=== PATIENT | female | born 2000 ===

== ENCOUNTER 2022-04-25 15:04 | Emergency (ER) | payer OTHER, SELFPAY ==
[2022-04-25 16:04] VITALS: BP 118/78; PULSE 84; RESP 16; O2SAT 99; BMI 22.6
[2022-04-25 16:31] LABS: MANUAL DIFF FLAG NO
[2022-04-25 16:44] LABS: Basophils Percent Auto 0.3 % (0-2); Hematocrit 37.7 % (37.0-47.0); Hemoglobin 12.4 g/dl (12.0-16.0); Imm Gran Abs Auto 0.01 X10*3/uL (0.00-0.03); Imm Gran Pct Auto 0.3 % (0.0-0.4); Lymphocytes Absolute Auto 1.3 X10*3/uL (1.2-4.9); Mean Corpuscular HGB Conc 32.9 g/dl (31.0-35.0); Mean Corpuscular Hemoglobin 28.8 pg (27.0-33.0); Mean Corpuscular Volume 87.5 fL (80.0-98.0); Monocytes Absolute Auto 0.5 X10*3/uL (0.1-1.2); Monocytes Percent Auto 12.3 % (2-11); Neutrophils Percent Auto 53.1 % (45-73); Platelet Count 280 X10*3/uL (160-400); Red Blood Count 4.31 X10*6/uL (4.20-5.50); Red Cell Distribution Width 12.3 % (11.0-16.0); White Blood Count 3.8 X10*3/uL (4.8-10.8)
[2022-04-25 16:49] LABS: COVID-19 Test Positive (Negative)
[2022-04-25 16:52] LABS: Anion Gap 14 (12-20); Blood Urea Nitrogen 10 mg/dL (9-16); Calcium 9.2 mg/dL (8.4-10.2); Carbon Dioxide 25 mmol/L (22-29); Chloride 104 mmol/L (96-108); Estimated Glomerular Filt Rate > 60; Glucose Random 89 mg/dL (60-115); Potassium 4.2 mmol/L (3.3-5.1); Sodium 139 mmol/L (135-145)
[2022-04-25 17:41] LABS: Appearance Urine Clear; Color Urine Dark Yellow; Glucose Urine UA Negative (Negative); Leukocyte Esterase Urine Negative (Negative); Nitrite Urine Negative (Negative); Specific Gravity - Urine >= 1.030 (1.005-1.025); Urine Blood Negative (Negative); Urine Ketones Trace mg/dL (Negative); Urine Protein 30 (1+) mg/dL (Neg-Trace)
[2022-04-25 17:43] LABS: UPreg QC Valid YES; Urine Pregnancy NEGATIVE (NEGATIVE)
[2022-04-25 17:44] LABS: Bacteria Urine None Seen (None Seen); Squamous Epithelial Cell Urine 0-2 /HPF (0-2); WBC Urine 0-5 /HPF (0-5)
== END 2022-04-25 19:03 | disposition left against medical advice (07) ==
PROVIDERS: Emergency Provider Emergency Medicine
DX: U07.1 COVID-19 (principal); R10.30 Lower abdominal pain, unspecified
CPT/HCPCS: 36415; 80048; 81001; 81025; 85025; 87635; 99282; 99283

== ENCOUNTER 2022-09-17 15:36 | Emergency (ER) | payer OTHER, SELFPAY ==
--- NOTE | ~2022-09-17 | CT_ITS ---
EXAMINATION: CT HEAD WITHOUT CONTRAST CLINICAL INFORMATION: 22-year-old with headache COMPARISON: None TECHNIQUE: Contiguous axial imaging was performed from the skull base to vertex without intravenous administration of contrast. This CT examination was performed using dose optimization techniques as appropriate, variously including the following: *Automated exposure control *Adjustment of mA and/or kV according to patient size (this includes techniques or standardized protocols for targeted exams where dose is matched to indication/reason for exam; i.e. extremities or head) *Use of iterative reconstruction technique DLP: 544 mGy-cm FINDINGS: There is no evidence of acute intracranial hemorrhage or territorial infarction. No abnormal mass effect or midline shift is seen. Ruggiero to white matter differentiation is well preserved. No extra-axial fluid collections are identified. No hydrocephalus. No significant volume loss. There is no abnormal attenuation within the brain parenchyma. The osseous structures and soft tissues are normal. The mastoid air cells and visualized portions of the paranasal sinuses are well aerated. CT/CT head/brain wo IV con IMPRESSION: No acute intracranial pathology.
[2022-09-17 15:37] VITALS: BP 120/79; PULSE 79; RESP 18; TEMP 36.7; O2SAT 100; BMI 24.5
--- NOTE | 2022-09-17 16:18 | ED_ITS ---
HPI - Headache General Chief Complaint: Headache Stated Complaint: headache,vision impairment Time Seen by Provider: 09/17/22 16:18 Source: patient and family Mode of arrival: ambulatory Limitations: no limitations History of Present Illness HPI Narrative: 22-year-old female presents for 2 weeks of right-sided headache, right-sided ear pain, right eye pain, and right eye pressure. She states that it feels like her eye is going to pop out because of the pressure. She has had headaches like this in the past however this has lasted longer than normal. She did take Tylenol with moderate effect but not today. MD elicited complaint: headache and migraine Onset (ago): week(s) (2) Onset description: gradually Location: right and occipital Severity: severe Pain scale (0-10): 9 Quality & Timing: throbbing, squeezing, constant, pressure, progressively worsening and similar to previous headaches Exacerbating factors: movement of head/neck and light Relieving factors: nothing Associated symptoms: photophobia, sensitivity to sound and eye pain Treatments prior to arrival: acetaminophen and ibuprofen Related Data Previous Rx's Medication Instructions Recorded [id number]-gnlyjprzttxld-fimexgdc 1 cap PO Q4-6H PRN migraine 09/17/22 50 mg-300 mg-40 mg capsule headache #14 caps (Fioricet) Allergies Allergy/AdvReac Type Severity Reaction Status Date / Time No Known Allergies Allergy Unverified 04/30/20 18:20 Review of Systems Review of Systems: Constitutional: No Fever, No Chills ENT/Mouth: No Ear Pain, No Hoarseness, No sore throat Eyes: Positive right Eye Pain, positive photophobia, No Swelling, No Redness, No Foreign Body Cardiovascular: No Chest Pain, No SOB Respiratory: No Cough, No Dyspnea Gastrointestinal: No Nausea, No Vomiting, No Diarrhea, No abdominal Pain Genitourinary: No Dysuria, No Hematuria Musculoskeletal: No joint pain, No Myalgias, No Joint Swelling Skin: No Skin lacerations, No rash Neuro: No Weakness, No Numbness, No Paresthesias, No Loss of Consciousness, No Dizziness, positive Headache Yes all other systems are reviewed and are negative PMFSH Past Medical History Attestation statement: The following information was validated with the patient. Source: old records reviewed Social History Social History Advance Directives: No Advance Directives Information Provided: Yes Physical Exam Vital Signs: Vital Signs: Last Vital Signs Temp 98.0 F 09/17/22 15:37 Pulse 79 09/17/22 15:37 Resp 18 09/17/22 15:37 BP 120/79 09/17/22 15:37 Pulse Ox 100 09/17/22 15:37 O2 Del Method 09/17/22 15:37 BMI result Body Mass Index 24.5 Appearance: Alert. Oriented X3. Moderate distress. Eyes: Pupils equal, round and reactive to light. EOMI. Sclerae nonicteric. No indication of entrapment. No drainage noted. ENT: Pharynx normal. No cervical lymphadenopathy. No nuchal rigidity. No vertebral tenderness. Neck: Normal inspection. Neck supple. Full range of motion. CVS: Normal heart rate and rhythm. Pulses normal. Respiratory: No respiratory distress. Breath sounds normal. Abdomen: Soft and nontender. Skin: Skin warm and dry. Normal skin color. Normal skin turgor. Extremities: No lower extremity edema. Gait well-balanced well coordinated. Neuro: No motor deficit. No sensory deficit. Cranial nerves 2-12 intact. Course Course Course Narrative: 22-year-old female presents with right-sided headache, eye pain ear pain for approximately 2 weeks. There is no indication of temporal arteritis, no pain on extraocular movements, no indication of entrapment. Patient does not report any trauma fevers or chills. Has had a history of migraines in the past. At this time will order CT scan of the head and give Fioricet. There is no indication of nuchal rigidity or mastoid tenderness. No meningeal signs. NIH stroke scale 0. Zak coma scale 15. Patient is currently menstruating. 18:[address] scans are pending. 18:20 CT scans are negative. Plan of care is to discharge home. Patient will follow-up with primary care physician for migraine follow-up. Patient verbalized understanding of and agrees to plan of care discharge home. Verbalized understanding of signs and symptoms indicating need for emergent intervention. Medications Administered Discontinued Medications Generic Name Dose Route Start Last Admin Trade Name Freq PRN Reason Stop Dose Admin Acetaminophen/Butalbital/Caffeine 1 tab 09/17/22 16:24 09/17/22 17:33 Butalb/Acetamin/Caff 50/325/40 Tablet PO 09/17/22 16:25 1 tab ONCE ONE Administration Medical Decision Making Differential Diagnosis Differential Diagnoses: The differential diagnosis associated with the presentation includes Migraine, brain abnormality, subdural Lab Data MDM Lab Attestation statement: I reviewed the patient's lab results. Labs: Lab Results 09/17/22 09/17/22 Range/Units 16:46 16:46 Urine Color [place] A Urine Appearance Cloudy Urine pH 5.5 (5.0-9.0) Ur Specific [place] >= 1.030 H (1.005-1.025) Urine Protein 30 (1+) H (Neg-Trace) mg/dL Urine Glucose (UA) Negative (Negative) mg/dL Urine Ketones Negative (Negative) mg/dL Urine Blood Large (3+) H (Negative) Urine Nitrite Negative (Negative) Ur Leukocyte Esterase Small (1+) H (Negative) Urine RBC >20 H (0-2) /HPF Urine WBC 21-50 H (0-5) /HPF Ur Squamous Epith Cells 0-2 (0-2) /HPF Urine Bacteria Trace (None Seen) Hyaline Casts 0-2 (0-2) /LPF Urine Test NEGATIVE (NEGATIVE) Independent Interpretation I performed an independent interpretation of an: CT Scan Radiology Impression Discussion of test interpretation with radiology: I have reviewed the radiologist's reading. Radiologist Impression: FINDINGS: There is no evidence of acute intracranial hemorrhage or territorial infarction. No abnormal mass effect or midline shift is seen. Ruggiero to white matter differentiation is well preserved. No extra-axial fluid collections are identified. No hydrocephalus. No significant volume loss. There is no abnormal attenuation within the brain parenchyma. The osseous structures and soft tissues are normal. The mastoid air cells and visualized portions of the paranasal sinuses are well aerated. ? CT/CT head/brain wo IV con IMPRESSION: No acute intracranial pathology. ? ? External Record Review External record reviewed: Outpatient record Prescription Management I considered prescription management with: Pain Medication Discharge Plan Discharge Clinical Impression: Tension headache, Migraine Patient Disposition: Home, Self-Care Instructions: Migraine Headache (ED), Tension Headache (ED) Additional Instructions: You were evaluated for right-sided headache. CT scan of head is negative for acute findings. Your symptoms are consistent with migraine headache. Please take Fioricet as directed. Use Tylenol 650 mg or Motrin 600 mg for onset of headache. If Tylenol and Motrin are unsuccessful at relieving her headache then use Fioricet Please follow-up with primary care physician for migraine workup. Urinalysis is negative. test is negative. Thank you for choosing this emergency department for evaluation. Please follow-up with primary care physician as needed. Return to the emergency department for any new, concerning, or worsening symptoms. Prescriptions: New iniefpqeto-kjqxvqjqwioin-pieg [Fioricet] 50-300-40 mg capsule 1 cap PO Q4-6H PRN (Reason: migraine headache) Qty: 14 0RF Referrals: Physician,None [Primary Care Provider] - 2 weeks (Primary care physician) Stand Alone Forms: Work/School Release Interventions: ED Discharge Assessment Last Done: 09/17/22 18:51 Discharge Date/Time: 09/17/22 18:51
[2022-09-17 17:08] LABS: UPreg QC Valid YES; Urine Pregnancy NEGATIVE (NEGATIVE)
[2022-09-17] MEDS: Butalb/Acetamin/Caff 50/325/40 TABLET 1 TAB PO (17:33)
[2022-09-17 17:59] LABS: Appearance Urine Cloudy; Color Urine Orange; Glucose Urine UA Negative (Negative); Leukocyte Esterase Urine Small (1+) (Negative); Nitrite Urine Negative (Negative); PH 5.5 (5.0-9.0); Specific Gravity - Urine >= 1.030 (1.005-1.025); UMIC TRIGGER UACC YES; Urine Blood Large (3+) (Negative); Urine Ketones Negative (Negative); Urine Protein 30 (1+) mg/dL (Neg-Trace)
[2022-09-17 18:00] LABS: Bacteria Urine Trace (None Seen); Hyaline Casts Urine 0-2 /LPF (0-2); RBC Urine >20 /HPF (0-2); Squamous Epithelial Cell Urine 0-2 /HPF (0-2); UACC Culture Trigger YES; WBC Urine 21-50 /HPF (0-5)
== END 2022-09-17 18:51 | disposition home or self-care (01) ==
PROVIDERS: Nurse Practitioner Family; Emergency Provider Internal Medicine
DX: G44.209 Tension-type headache, unspecified, not intractable (principal); G43.909 Migraine, unspecified, not intractable, without status migrainosus; Z79.899 Other long term (current) drug therapy
CPT/HCPCS: 70450; 81001; 81003; 81025; 87086; 99283; 99284

== ENCOUNTER 2023-01-17 11:00 | Emergency (ER) | payer MEDICAID, SELFPAY ==
[2023-01-17 11:16] VITALS: BP 118/79; PULSE 83; RESP 18; TEMP 36.7; O2SAT 99; BMI 24.6
--- NOTE | 2023-01-17 11:16 | ED_ITS ---
HPI - Dizziness General Chief Complaint: General Medical Stated Complaint: Weakness/Lightheadedness/Dizzy Time Seen by Provider: 01/17/23 17:31 Source: patient and family Mode of arrival: ambulatory Limitations: no limitations History of Present Illness HPI Narrative: This is a 22-year-old female history of tension-type migraines presenting to the emergency department for complaints of dizziness and presyncopal episodes going on for the past few days, however patient has experienced this in the past. Patient tells me she gets episodes like this at least once a month and this has been going on since she was a child. Patient reports that the reason she came in today because she felt like she was going to pass out 3 times today, she reports these episodes start with a sense of nausea, then she feels like the room is spinning, then she feels like she is going to pass out her legs are going to give out on her. She also reports that at times when she gets dizziness she gets blurred vision or tunnel vision. Does not always happen. Patient denies recent illness. Patient denies chest pain, shortness of breath, headache, vision changes, nausea, vomiting, abdominal pain, weakness, lower extremity edema or lower extremity weakness, at this time. Patient not on control, not a smoker, no long travel, no history of malignancy, no history of hypercoagulable disorders. NIH stroke scale 0. Related Data Previous Rx's Medication Instructions Recorded rqxsydctlh-jvvfcogvwwvnb-jivcxdhj 1 cap PO Q4-6H PRN migraine 09/17/22 50 mg-300 mg-40 mg capsule headache #14 caps (Fioricet) meclizine 25 mg tablet 25 mg PO DAILY PRN dizziness #14 01/17/23 tabs Allergies Allergy/AdvReac Type Severity Reaction Status Date / Time No Known Allergies Allergy Verified 01/17/23 11:20 Review of Systems Review of Systems: Constitutional : No Weight loss, No Fever, No Chills, No Fatigue, + Malaise ENT/Mouth : No sore throat, No Rhinorrhea Eyes: No Eye Pain, No Swelling, No Redness Cardiovascular : No Chest Pain, No SOB, No Dyspnea on Exertion, No Orthopnea, No Edema, No Palpitations Respiratory : No Cough, No Sputum, No Wheezing Gastrointestinal : No Nausea, No Vomiting, No Diarrhea, No Constipation, No abdominal Pain, No Hematochezia, No Melena Genitourinary : No Dysuria, No Urinary Frequency, No Hematuria, Musculoskeletal : No joint pain, No Myalgias, No Joint Swelling Skin : No Skin Lesions, No rash Neuro : No Weakness, No Numbness, + Dizziness, No Headache Psych : No Anxiety/Panic, No Depression All other systems reviewed and are negative Yes all other systems are reviewed and are negative [facility] Past Medical History Attestation statement: The following information was validated with the patient. Source: old records reviewed and nursing notes reviewed Social History Social History Advance Directives: No Advance Directives Information Provided: No Physical Exam Vital Signs: Vital Signs: Last Vital Signs Temp 98.1 F 01/17/23 11:16 Pulse 81 01/17/23 18:12 Resp 18 01/17/23 11:16 BP 108/75 01/17/23 18:12 Pulse Ox 99 01/17/23 11:16 O2 Del Method Room Air 01/17/23 11:16 BMI result Body Mass Index 24.6 vss Appearance: Alert.? Oriented X3.? No acute distress.? Patient appears anxious Head: Normocephalic, atraumatic, no step-offs or deformities Eyes: Pupils equal, round and reactive to light.? CVS: Normal heart rate and rhythm.? Pulses normal.? Respiratory: No respiratory distress.? Breath sounds normal.? Abdomen: Soft and nontender.? Skin: Skin warm and dry.? Normal skin color.? Normal skin turgor.? Extremities: No lower extremity edema.? No calf ttp. 5/5 strength to bilateral upper and lower extremities+ brisk normal 2+ reflexes to bilateral lower extremities, patellar, Achilles. Back: No midline tenderness, no C-spine tenderness, full range of motion, no CVA tenderness bilaterally Neuro: Oriented X 3.? No motor deficit.? No sensory deficit. CN 2-12 intact . Normal dcyzjx-nm-ddsa, brse-hs-sudq, steady tandem gait normal coordination. 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 Negative Romberg and pronator drift. Course Course Course Narrative: RME - 22 yo female presents to the ER for evaluation of dizziness, lightheadedness, vision changes episodes x3 today with episode of pre-syncope. She has history of similar episodes with syncope in the past. Reevaluation(s) Reevaluation #1: CBC appears to be around patient's baseline, a normocytic anemia is noted this could be secondary to menses. Chemistry without acute electrolyte abnormalities requiring intervention. Troponin negative, EKG nonischemic. TSH, urine and orthostatic vitals pending. Time: 18:08 Reevaluation #2: TSH within normal limits. Urine clean. Urine negative. Orthostatic vital signs negative. Patient feeling well, asymptomatic at this time. Neuro remains nonfocal vital signs are stable. Will be discharged home. Educated patient on diagnosis and treatment plan, answered all question, patient verbalizes understanding. At this time patient will be discharged home, advised to return with new or worsening symptoms. Educated on worrisome signs and symptoms and when to return. At this time I feel comfortable discharge home. Time: 19:06 Medical Decision Making Medical Decision Making [facility] Narrative: 1740 22-year-old female presents with presyncopal episodes, dizziness, nausea going on for the past few days however has had similar episodes like this in the past. Accompanied by father. Appears very anxious upon history taking. Physical examination benign. NIH stroke scale 0. Normal reflexes. I suspect that this is anxiety, and possible vertigo. Unlikely that this is a posterior stroke, stroke, mass, I do not suspect intracranial etiologies. Patient is PERC negative unlikely PE. Unlikely guillian barre Plan basic labs, urine, orthostatic vitals. Differential Diagnosis Differential Diagnoses: The differential diagnosis associated with the presentation includes I suspect that this is anxiety, and possible vertigo. Unlikely that this is a posterior stroke, stroke, mass, I do not suspect intracranial etiolog ies.Unlikely guillian barre Admission/Observation Consideration of admission/observation: Escalation of care including admission/observation considered Lab Data [facility] Lab Attestation statement: I reviewed the patient's lab results. 01/17/23 11:30 01/17/23 11:30 Labs: Lab Results 01/17/23 01/17/23 01/17/23 Range/Units 11:30 11:30 11:30 WBC 6.3 (4.8-10.8) X10*3/uL RBC 4.39 (4.20-5.50) X10*6/uL Hgb 10.9 L (12.0-16.0) g/dl Hct 35.3 L (37.0-47.0) % MCV 80.4 (80.0-98.0) fL MCH 24.8 L (27.0-33.0) pg MCHC 30.9 L (31.0-35.0) g/dl RDW 13.5 (11.0-16.0) % Plt Count 335 (160-400) X10*3/uL MPV 8.9 L (9.4-12.3) fL Immature Gran % (Auto) 0.2 (0.0-0.4) % Neut % (Auto) 52.6 (45-73) % Lymph % (Auto) 37.7 (20-40) % [place] % (Auto) 7.3 (2-11) % Eos % (Auto) 1.1 (0-4) % Baso % (Auto) 1.1 (0-2) % Lymph # (Auto) 2.4 (1.2-4.9) X10*3/uL [place] # (Auto) 0.5 (0.1-1.2) X10*3/uL Eos # (Auto) 0.1 (0.0-0.4) X10*3/uL Baso # (Auto) 0.1 (0.0-0.2) X10*3/uL Abs Immat Gran (auto) 0.01 (0.00-0.03) X10*3/uL Absolute Neuts (auto) 3.3 (2.0-8.3) x10*3/uL Absolute Nucleated RBC 0.000 (0.0-0.012) X10*3/uL Nucleated RBC % (auto) 0.0 (0.0-0.2) /100WBC Sodium 138 (135-145) mmol/L Potassium 4.6 (3.3-5.1) mmol/L Chloride 109 H (96-108) mmol/L Carbon Dioxide 24 (22-29) mmol/L Anion Gap 10 L (12-20) BUN 12 (9-16) mg/dL Creatinine 0.70 (0.5-1.4) mg/dL Estim Creat Clear Calc 104.9 Estimated GFR > 60 Random Glucose 89 (60-115) mg/dL Calcium 9.6 (8.4-10.2) mg/dL Magnesium 2.1 (1.6-2.6) mg/dL Total Bilirubin 0.4 (0.0-1.0) mg/dL Direct Bilirubin 0.1 (0.0-0.5) mg/dL AST 50 H (5-31) U/L ALT 79 H (0-31) U/L Alkaline Phosphatase 61 (39-117) U/L Troponin I High Sens < 2.7 (<3.5-17.0) ng/L Total Protein 7.1 (6.5-8.0) g/dL Albumin 4.2 (3.5-5.0) g/dL TSH 0.95 (0.32-4.0) uIU/mL Urine Color Urine Appearance Urine pH (5.0-9.0) Ur Specific [place] (1.005-1.025) Urine Protein (Neg-Trace) mg/dL Urine Glucose (UA) (Negative) mg/dL Urine Ketones (Negative) mg/dL Urine Blood (Negative) Urine Nitrite (Negative) Ur Leukocyte Esterase (Negative) Urine RBC (0-2) /HPF Urine WBC (0-5) /HPF Ur Squamous Epith Cells (0-2) /HPF Urine Bacteria (None Seen) Hyaline Casts (0-2) /LPF Urine Test (NEGATIVE) 01/17/23 01/17/23 Range/Units 18:35 18:35 WBC (4.8-10.8) X10*3/uL RBC (4.20-5.50) X10*6/uL Hgb (12.0-16.0) g/dl Hct (37.0-47.0) % MCV (80.0-98.0) fL MCH (27.0-33.0) pg MCHC (31.0-35.0) g/dl RDW (11.0-16.0) % Plt Count (160-400) X10*3/uL MPV (9.4-12.3) fL Immature Gran % (Auto) (0.0-0.4) % Neut % (Auto) (45-73) % Lymph % (Auto) (20-40) % [place] % (Auto) (2-11) % Eos % (Auto) (0-4) % Baso % (Auto) (0-2) % Lymph # (Auto) (1.2-4.9) X10*3/uL [place] # (Auto) (0.1-1.2) X10*3/uL Eos # (Auto) (0.0-0.4) X10*3/uL Baso # (Auto) (0.0-0.2) X10*3/uL Abs Immat Gran (auto) (0.00-0.03) X10*3/uL Absolute Neuts (auto) (2.0-8.3) x10*3/uL Absolute Nucleated RBC (0.0-0.012) X10*3/uL Nucleated RBC % (auto) (0.0-0.2) /100WBC Sodium (135-145) mmol/L Potassium (3.3-5.1) mmol/L Chloride (96-108) mmol/L Carbon Dioxide (22-29) mmol/L Anion Gap (12-20) BUN (9-16) mg/dL Creatinine (0.5-1.4) mg/dL Estim Creat Clear Calc Estimated GFR Random Glucose (60-115) mg/dL Calcium (8.4-10.2) mg/dL Magnesium (1.6-2.6) mg/dL Total Bilirubin (0.0-1.0) mg/dL Direct Bilirubin (0.0-0.5) mg/dL AST (5-31) U/L ALT (0-31) U/L Alkaline Phosphatase (39-117) U/L Troponin I High Sens (<3.5-17.0) ng/L Total Protein (6.5-8.0) g/dL Albumin (3.5-5.0) g/dL TSH (0.32-4.0) uIU/mL Urine Color Yellow Urine Appearance Clear Urine pH 6.5 (5.0-9.0) Ur Specific [place] 1.015 (1.005-1.025) Urine Protein Negative (Neg-Trace) mg/dL Urine Glucose (UA) Negative (Negative) mg/dL Urine Ketones Trace (Negative) mg/dL Urine Blood Negative (Negative) Urine Nitrite Negative (Negative) Ur Leukocyte Esterase Negative (Negative) Urine RBC 0-2 (0-2) /HPF Urine WBC 0-5 (0-5) /HPF Ur Squamous Epith Cells 0-2 (0-2) /HPF Urine Bacteria None Seen (None Seen) Hyaline Casts 0-2 (0-2) /LPF Urine Test NEGATIVE (NEGATIVE) Independent Interpretation I performed an independent interpretation of an: EKG (Ventricular rate of 71, [place] normal, QRS normal, QT/QTC normal. No signs of acute ischemia.) Radiology Impression Discussion of test interpretation with radiology: I have reviewed the radiologist's reading. External Record Review External record reviewed: Inpatient record, Office record, Outpatient record, Prior outpatient labs, Prior outpatient radiology, Primary care record and Outside ED record Tests considered The following testing was considered but not selected: Considered obtaining head CT however patient has a nonfocal neuro exam, no headache or visual disturbances at this time. Not even complaining of di zziness. Head CT is not indicated at this time. No associated trauma. To know upon chart review patient had a normal head CT done 09/17/2022. Core Measures AMI core measures followed: Yes Measure exclusions: not indicated Critical Care Time Critical Care Time Critical Care Time: No Discharge Plan Discharge Clinical Impression: Near syncope, Vertigo Patient Disposition: Home, Self-Care Instructions: Vertigo (ED), Near Syncope (ED) Additional Instructions: Take your medications as prescribed. If you were prescribed antibiotics today, it is important that you take your medication to their entirety, do not skip any doses, do not finish them early. Follow-up with your primary care provider this week. Return to the emergency department with new or worsening symptoms. Such as fevers, chills, chest pain, shortness of breath, nausea, vomiting, dizziness, headache, vision changes, lethargy In case of emergency call 911 Please follow-up with neurology. Prescriptions: New meclizine 25 mg tablet 25 mg PO DAILY PRN (Reason: dizziness) Qty: 14 0RF No Action rutujgdsye-bkpruoselcqfq-gljy [Fioricet] 50-300-40 mg capsule 1 cap PO Q4-6H PRN (Reason: migraine headache) Qty: 14 0RF Referrals: [facility] [place] [facility]Provider Group] - 2 days Santa Bazzi MD [Primary Care Provider] - 2 days Stand Alone Forms: Work/School Release
--- NOTE | 2023-01-17 11:21 | ECG_ITS ---
Test Reason : SYNCOPE Blood Pressure : / mmHG Vent. Rate : 071 BPM Atrial Rate : 071 BPM P-R Int : 136 ms QRS Dur : 088 ms QT Int : 372 ms P-R-T Axes : 051 059 027 degrees QTc Int : 404 ms Normal sinus rhythm Normal ECG No previous ECGs available Referred By: Minna Hagen Electronically Signed By:Ashutosh Guerrero
[2023-01-17 11:35] LABS: MANUAL DIFF FLAG NO
[2023-01-17 11:38] LABS: Basophils Absolute Auto 0.1 X10*3/uL (0.0-0.2); Basophils Percent Auto 1.1 % (0-2); Eosinophils Absolute Auto 0.1 X10*3/uL (0.0-0.4); Eosinophils Percent Auto 1.1 % (0-4); Hematocrit 35.3 % (37.0-47.0); Hemoglobin 10.9 g/dl (12.0-16.0); Imm Gran Abs Auto 0.01 X10*3/uL (0.00-0.03); Imm Gran Pct Auto 0.2 % (0.0-0.4); Lymphocytes Absolute Auto 2.4 X10*3/uL (1.2-4.9); Lymphocytes Percent Auto 37.7 % (20-40); Mean Corpuscular HGB Conc 30.9 g/dl (31.0-35.0); Mean Corpuscular Hemoglobin 24.8 pg (27.0-33.0); Mean Corpuscular Volume 80.4 fL (80.0-98.0); Mean Platelet Volume 8.9 fL (9.4-12.3); Monocytes Absolute Auto 0.5 X10*3/uL (0.1-1.2); Monocytes Percent Auto 7.3 % (2-11); Neutrophils Absolute Auto 3.3 x10*3/uL (2.0-8.3); Neutrophils Percent Auto 52.6 % (45-73); Platelet Count 335 X10*3/uL (160-400); Red Blood Count 4.39 X10*6/uL (4.20-5.50); Red Cell Distribution Width 13.5 % (11.0-16.0); White Blood Count 6.3 X10*3/uL (4.8-10.8)
[2023-01-17 11:54] LABS: Alanine Aminotransferase 79 U/L (0-31); Albumin Level 4.2 g/dL (3.5-5.0); Alkaline Phosphatase 61 U/L (39-117); Anion Gap 10 (12-20); Aspartate Amino Transferase 50 U/L (5-31); Bilirubin Direct 0.1 mg/dL (0.0-0.5); Bilirubin Total 0.4 mg/dL (0.0-1.0); Blood Urea Nitrogen 12 mg/dL (9-16); Calcium 9.6 mg/dL (8.4-10.2); Carbon Dioxide 24 mmol/L (22-29); Chloride 109 mmol/L (96-108); Creatinine Clr Calc Pharmacy 104.9; Estimated Glomerular Filt Rate > 60; Glucose Random 89 mg/dL (60-115); Magnesium 2.1 mg/dL (1.6-2.6); Potassium 4.6 mmol/L (3.3-5.1); Sodium 138 mmol/L (135-145); Total Protein 7.1 g/dL (6.5-8.0)
[2023-01-17 11:57] LABS: Troponin-I High Sensitivity < 2.7 ng/L (<3.5-17.0)
[2023-01-17 18:09] VITALS: BP 108/68; PULSE 69
[2023-01-17 18:11] VITALS: BP 105/68; PULSE 84
[2023-01-17 18:12] VITALS: BP 108/75; PULSE 81
[2023-01-17 18:43] LABS: Appearance Urine Clear; Color Urine Yellow; Glucose Urine UA Negative (Negative); Leukocyte Esterase Urine Negative (Negative); Nitrite Urine Negative (Negative); PH 6.5 (5.0-9.0); Specific Gravity - Urine 1.015 (1.005-1.025); UPreg QC Valid YES; Urine Blood Negative (Negative); Urine Ketones Trace mg/dL (Negative); Urine Pregnancy NEGATIVE (NEGATIVE); Urine Protein Negative (Neg-Trace)
[2023-01-17 18:45] LABS: Bacteria Urine None Seen (None Seen); Hyaline Casts Urine 0-2 /LPF (0-2); RBC Urine 0-2 /HPF (0-2); Squamous Epithelial Cell Urine 0-2 /HPF (0-2); WBC Urine 0-5 /HPF (0-5)
[2023-01-17 18:55] LABS: Thyroid Stimulating Hormone 0.95 uIU/mL (0.32-4.0)
[2023-01-17 19:44] VITALS: BP 99/66; PULSE 83; RESP 16; TEMP 36.9; O2SAT 100
--- NOTE | 2023-01-17 20:10 | PC.NURSE ---
this rn assumed care of pt at 1900. pt calm and cooperative. pt father at bedside. pt provided with discharge packet and work note. pt verbalized understanding of discharge plan. pt ambulatory at discharge
== END 2023-01-17 20:10 | disposition home or self-care (01) ==
PROVIDERS: Physician Assistant; Emergency Provider Student in an Organized Health Care Education/Training Program; PCP Student in an Organized Health Care Education/Training Program
DX: R55 Syncope and collapse (principal); R42 Dizziness and giddiness
CPT/HCPCS: 36415; 80048; 80076; 81001; 81025; 83735; 84443; 84484; 85025; 93005; 99284

== ENCOUNTER → 2023-01-30 09:53 | Outpatient (REF) | payer MEDICAID, SELFPAY ==
--- NOTE | 2023-01-30 09:56 | CA_ITS ---
Transthoracic Echocardiogram Patient (Last, First, Middle): Анна Guerra, Gender: Female Date of : 2000 Age: 22 Procedure Date: 01/30/2023 Procedure Type: Transthoracic Echocardiogram Location: OP Height: 157.48 cm Weight: 58.97 kg BSA: 1.59 m2 Heart Rate: 81 bpm BP: 115 / 60 mmHg [employer]er: ELROY Referring MD: Deanna COKER Symptoms: DIZZINESS,r42 Study Quality: Fair ECG Rhythm: Sinus Conclusions: - The left ventricular systolic function is low normal. The calculated ejection fraction is 53% by biplane method. - No obvious valvular pathology seen on this study. Findings Left Ventricle Normal left ventricular cavity size. There is normal left ventricular wall thickness. The left ventricular systolic function is low normal. The calculated ejection fraction is 53% by biplane method. There is no evidence of regional wall motion abnormalities. Diastolic function is normal for age. Right Ventricle Normal right ventricular cavity size and systolic function. Atria Both atria are normal in size. Aortic Valve There is a normal trileaflet aortic valve. There is no aortic valve stenosis. There is no aortic valve regurgitation. Mitral Valve The mitral valve appears normal. There is trace mitral valve regurgitation. There is no mitral valve stenosis. Pulmonic Valve The pulmonic valve is likely normal. Tricuspid Valve Normal tricuspid valve structure. There is trace tricuspid valve regurgitation. There is no evidence of pulmonary hypertension. Great Vessels The asc aorta is normal in size. Venous The inferior vena cava was not well visualized. The inferior vena cava is normal in size. Pericardium/Pleural There is no evidence of pericardial effusion. Prior Study Comparison No prior study available for comparison. Recommendations, Care & Conclusions No obvious valvular pathology seen on this study. Measurements 2D Linear Measurements IVSd: 0.70 0.6-0.9/0.6-1.0 cm LVIDd: 4.06 3.9-5.3/4.2-5.9 cm LVIDd Index: 2.55 2.4-3.2/2.2-3.1 cm/m2 LVIDs: 2.85 2.0-3.6 cm LVPWd: 0.66 0.7-1.1 cm LA Diam: 2.50 2.7-3.8/3.0-4.0 cm LAIDs Index: 1.57 1.5-2.3 cm/m2 LV Mass: 96.17 67-162/88-224 g LV Mass Index: 60.49 43-95/49-115 g/m2 LVOT Diam: 1.90 3.0+(-)1.3 cm 2D Systolic Function EF 4C: 52.20 >55% EF 2C: 55.90 >55% EF BiP: 53.40 >55% Mitral Valve MV Pk E: 0.81 MV PK A: 0.40 MV Decel Time: 232.00 E/A: 2.00 E'Lateral: 16.10 E'Medial: 11.10 E/E' Med: 7.30 E/E' Lat: 5.10 PHT: 68.00 MVA PHT: 3.24 Decel Cascade: 3.50 Aortic Valve AoV Pk Albert: 1.07 AoV Mn Albert: 0.75 AoV VTI: 0.22 AoV Pk Grad: 5.00 Aov Mn Grad: 3.00 TIANA Cont.VTI: 2.02 LVOT LVOT Pk Albert: 0.89 LVOT Mn Albert: 0.59 LVOT VTI: 0.15 LVOT Pk Grad: 3.00 LVOT Mn Grad: 2.00 LVOT Diam: 1.90 LVOT Area: 2.84 Diastolic Function MV Pk E: 0.81 MV Pk A: 0.40 E/A: 2.00 E'Medial: 11.10 E/E' Med: 7.30 E' Laterial: 16.10 E/E' Lat: 5.10 Right Ventricle TAPSE (mm): 19.90 TVS' Albert: 13.80 Great Vessels Aorta Sinus of Valsalva: 2.80 2.0-3.5 cm Ao Asc: 2.50 2.1-3.4 cm Pulmonary Valve PV Pk Albert: 1.32 Peak PV Grad: 7.00 Updated in Other Vendor System with Status of Final Derek Kim MD electronically signed on 01/31/2023 11:15:49 AM with status of Final
== END ==
LOC: HO.CARD 09:53
PROVIDERS: PCP Student in an Organized Health Care Education/Training Program; Visit Provider Registered Nurse
DX: R42 Dizziness and giddiness (principal); R55 Syncope and collapse
CPT/HCPCS: 93306

== ENCOUNTER 2023-05-01 17:54 | Outpatient (REF) | payer MEDICAID, SELFPAY ==
[2023-05-02 10:22] LABS: BV Int Neg Control Negative (Negative); BV Int Pos Control Positive (Positive)
== END 2023-05-01 17:55 | disposition home or self-care (01) ==
LOC: HO.HHCLNP 17:54
PROVIDERS: Visit Provider Emergency Medicine
DX: B37.9 Candidiasis, unspecified (principal)
CPT/HCPCS: 87086; 87088; 87480; 87510; 87660

== ENCOUNTER 2023-05-04 18:07 | Outpatient (REF) | payer MEDICAID, SELFPAY ==
[2023-05-04 18:54] LABS: Influenza A PCR NEGATIVE (Negative); Influenza B PCR NEGATIVE (Negative); Resp Syncy Virus RNA Qual PCR NEGATIVE (Negative); SARS COV2 PCR INHOUSE NEGATIVE (Negative)
== END 2023-05-04 18:08 | disposition home or self-care (01) ==
LOC: HO.HHCLNP 18:07
PROVIDERS: Visit Provider Family Medicine
DX: J06.9 Acute upper respiratory infection, unspecified (principal); Z20.822 Contact with and (suspected) exposure to COVID-19
CPT/HCPCS: 0241U; 87070

== ENCOUNTER 2023-11-02 14:38 | Outpatient (REF) | payer MEDICAID, SELFPAY ==
[2023-11-02 16:01] LABS: MANUAL DIFF FLAG NO
[2023-11-02 16:13] LABS: Basophils Absolute Auto 0.1 X10*3/uL (0.0-0.2); Basophils Percent Auto 0.4 % (0-2); Eosinophils Absolute Auto 0.1 X10*3/uL (0.0-0.4); Eosinophils Percent Auto 0.6 % (0-4); Hematocrit 36.5 % (37.0-47.0); Hemoglobin 11.8 g/dl (12.0-16.0); Imm Gran Abs Auto 0.06 X10*3/uL (0.00-0.03); Imm Gran Pct Auto 0.4 % (0.0-0.4); Lymphocytes Absolute Auto 1.3 X10*3/uL (1.2-4.9); Lymphocytes Percent Auto 9.2 % (20-40); Mean Corpuscular HGB Conc 32.3 g/dl (31.0-35.0); Mean Corpuscular Hemoglobin 27.8 pg (27.0-33.0); Mean Corpuscular Volume 86.1 fL (80.0-98.0); Mean Platelet Volume 10.2 fL (9.4-12.3); Monocytes Absolute Auto 0.8 X10*3/uL (0.1-1.2); Monocytes Percent Auto 5.7 % (2-11); Neutrophils Absolute Auto 11.6 x10*3/uL (2.0-8.3); Neutrophils Percent Auto 83.7 % (45-73); Platelet Count 357 X10*3/uL (160-400); Red Blood Count 4.24 X10*6/uL (4.20-5.50); Red Cell Distribution Width 15.3 % (11.0-16.0); White Blood Count 13.9 X10*3/uL (4.8-10.8)
[2023-11-02 16:45] LABS: Iron 26 mcg/dL (30-160); Percent Iron Saturation 8 % (15-50); Total Iron Binding Capacity 335 mcg/dL (228-428); Unsaturated Iron Binding 309 ug/dL
[2023-11-02 17:01] LABS: Ferritin 10 ng/mL (10-122)
== END 2023-11-02 14:39 | disposition home or self-care (01) ==
LOC: HO.HHCL 14:38
PROVIDERS: Visit Provider Student in an Organized Health Care Education/Training Program
DX: N94.6 Dysmenorrhea, unspecified (principal)
CPT/HCPCS: 36415; 82728; 83540; 85025

== ENCOUNTER 2024-03-14 14:46 | Outpatient (REF) | payer MEDICAID, SELFPAY ==
[2024-03-19 04:12] LABS: CT PCR NOT DETECTED (Not Detect.); NG PCR NOT DETECTED (Not Detect.)
[2024-03-19 08:59] LABS: Bacterial Vaginosis PCR POSITIVE (Negative); Candida Group PCR DETECTED (Not Detect); Candida glab krusei PCR NOT DETECTED (Not Detect); Trichomonas vaginalis PCR NOT DETECTED (Not Detect)
== END 2024-03-14 14:47 | disposition home or self-care (01) ==
LOC: HO.LAB 14:46
PROVIDERS: PCP Student in an Organized Health Care Education/Training Program; Visit Provider Advanced Practice Midwife
DX: Z20.2 Contact with and (suspected) exposure to infections with a predominantly sexual mode of transmission (principal); N89.8 Other specified noninflammatory disorders of vagina; N92.0 Excessive and frequent menstruation with regular cycle; N94.4 Primary dysmenorrhea; Z87.42 Personal history of other diseases of the female genital tract
CPT/HCPCS: 0352U; 87491; 87591; 99212

== ENCOUNTER 2024-03-14 14:46 | Outpatient (AMB) | payer MEDICAID, SELFPAY ==
[2024-03-14 15:07] VITALS: BP 110/62; BMI 25.1
--- NOTE | 2024-03-14 15:07 | MHC.OFFVIS ---
Vital Signs 03/14/24 15:07 Height 5 ft 2 in Weight 137 lb BMI 25.1 BP 110/62 Intake Visit Reasons: New patient Dysmenorrhea Physician Advisor Required: No Physician Advisor Services: Physician Advisor Present Information Interpreted: clinical only Licensing And Registration Director: Licensing And Registration Director Present Allergies No Known Allergies Allergy (Verified 03/14/24 15:07) Medication List - Last Reconciled 03/14/24 by Radha Vazquez CNM No Known Home Meds Is last menstrual period known: Yes Last menstrual period: 02/20/24 Do you need a note to return to daycare/school/sports/work: No HPI HPI New patient Dysmenorrhea: Details: Patient is here is a new patient to discuss her heavy periods and crampy periods and what to do about them all additionally she wants to get checked for BV she has little bit of the odor sometimes though not much and some vaginal itching burning and she said when she had something similar past she was told she BV. She has never had a pelvic exam or Pap smear were speculum exam she only had Q-tips that were placed at the same day care place in this building at [facility]. She was sexually active in the past but is not currently but she has started talking with somebody she knew in high school and they have talked about getting back together again he is currently deployed but they will be getting together in July when he comes from [place] and before he goes to [facility]. She is wondering about how dependable the pills would be and also about how to have a conversation to have her partner use condoms. Additionally she is wondering about is there anything else that can be done to make her painful horrible periods go way acutely they are so bad that ibuprofen does not work might all does not work Tylenol does not work heating pads do not work sometimes she gets sick and nauseous and she can not even wear pants because it bothers her stomach too much especially the 1st 2 days of her period. The additionally a few years ago she had tried pills but she was told to start them the day she pick them up and she bled often on for 3 months and stopped them. Additionally she is told in the past that she had an ovarian cyst they found out an ultrasound. [facility] Female Reproductive History Menstrual Age of Menarche: 12 Duration of menses: 3-5 days Date of last menstrual period: 02/20/24 control method: none Total pregnancies: 0 History of abnormal pap smear: No (no previous pap) Physical Exam Vital Signs: Last Vital Signs BP 110/62 03/14/24 15:07 BMI result Body Mass Index 25.1 Other: Not ready for her 1st pelvic exam she is interested in checking for BV she has some vaginal discharge and burning and she said she was told she had BV before just by them doing Q-tips at the same day care place here. She accepts testing with the Q-tips for gonorrhea chlamydia trichomoniasis bacterial vaginosis and yeast. Swabs done without speculum. Introitus pink no abnormal discharge noted, Assessment & Plan Assessment & Plan (1) Hx of ovarian cyst: Code(s): Z87.42 - Personal history of other diseases of the female genital tract Category: Medical (2) Menorrhagia with regular cycle: Code(s): N92.0 - Excessive and frequent menstruation with regular cycle Category: Medical (3) Primary dysmenorrhea: Code(s): N94.4 - Primary dysmenorrhea Category: Medical Plan Patient is here is a new patient to discuss her heavy periods and crampy periods and what to do about them all additionally she wants to get checked for BV she has little bit of the odor sometimes though not much and some vaginal itching burning and she said when she had something similar past she was told she BV. She has never had a pelvic exam or Pap smear were speculum exam she only had Q-tips that were placed at the same day care place in this building at [facility]. She was sexually active in the past but is not currently but she has started talking with somebody she knew in high school and they have talked about getting back together again he is currently deployed but they will be getting together in July when he comes from [place] and before he goes to [facility]. She is wondering about how dependable the pills would be and also about how to have a conversation to have her partner use condoms. Additionally she is wondering about is there anything else that can be done to make her painful horrible periods go way acutely they are so bad that ibuprofen does not work might all does not work Tylenol does not work heating pads do not work sometimes she gets sick and nauseous and she can not even wear pants because it bothers her stomach too much especially the 1st 2 days of her period. The additionally a few years ago she had tried pills but she was told to start them the day she pick them up and she bled often on for 3 months and stopped them. Additionally she is told in the past that she had an ovarian cyst they found out an ultrasound. Reviewed all of the available methods of control and options for making periods better discussed the risk benefit affect and that there isn't a way to stop all of the negative side effects of a period without removing some of the positive effects as well in terms of functioning as a female and effects on skin and bones etc.. She is not interested in anything that drastic anyway but I did discuss all of the various methods available currently and that everything is a balancing choice of side effects. -I reviewed with the patient, all of the currently common used methods of control that are available. We reviewed how they work in the body, how they are taken, common side effects, uncommon side effects, precautions, and contraindications. -Discussed also factors that influence their effectiveness and use, and womens satisfaction with the method. -Discussed how each are used, and drawbacks of each method as well. -Methods covered included: condoms, control pills, control patches, control rings, Depo-Provera, Nexplanon, Mirena and Kyleena IUDs, and ParaGard IUDs. All of the above methods were covered in great detail including their side effect profiles and common experiences that women have and ways to mitigate against the negative experiences including attention to diet and exercise patient's with bleeding challenges that may occur her and efforts to time the initiation of the method to this start of the menstrual period. Orders: Orders Bacterial Vaginosis Panel Today N89.8 - Other specified noninflammatory disorders of vagina CT NG by PCR Today Z20.2 - Contact with and (suspected) exposure to infections with a predominantly sexual mode of transmission US pelvic and transvaginal Today N92.0 - Excessive and frequent menstruation with regular cycle, N94.4 - Primary dysmenorrhea, Z87.42 - Personal history of other diseases of the female genital tract Medications: New desog-e.estradiol/e.estradiol 0.15-0.02 mgx21 /0.01 mg x 5 1 tab PO DAILY 84 tabs 4RF Discontinued mdtldveqvd-ghqibgugrvcwr-rakz 50-300-40 mg (Fioricet) Discontinued Reason: Patient Completed Course 1 cap PO Q4-6H PRN 14 caps 0RF migraine headache meclizine Discontinued Reason: Patient Completed Course 25 mg PO DAILY PRN 14 tabs 0RF dizziness Coding Level of Care Code New Pt Level 4 (02952) Diagnoses Hx of ovarian cyst Z87.42 Menorrhagia with regular cycle N92.0 Primary dysmenorrhea N94.4
== END 2024-03-14 16:17 | disposition home or self-care (01) ==
LOC: HO.HWSM 14:46
PROVIDERS: PCP Student in an Organized Health Care Education/Training Program; Visit Provider Advanced Practice Midwife
DX: Z87.42 Personal history of other diseases of the female genital tract (principal); N92.0 Excessive and frequent menstruation with regular cycle; N94.4 Primary dysmenorrhea
CPT/HCPCS: 99204

== ENCOUNTER 2024-04-03 16:19 | Outpatient (REF) | payer MEDICAID, SELFPAY ==
--- NOTE | ~2024-04-03 | US_ITS ---
EXAMINATION: US PELVIS CLINICAL INFORMATION: Menorrhagia. COMPARISON: None available. TECHNIQUE: Ultrasound of the pelvis is performed using the transabdominal transducers along with Doppler. Transvaginal imaging was refused. FINDINGS: Uterus: The uterus is anteverted and measures 8.2 x 3.3 x 5.0 cm. The double wall endometrial thickness is 3 mm. The uterus is smooth in contour and has normal myometrial echogenicity. No visible fibroid. Nabothian cysts are present in the cervix. Adnexa: Both ovaries are visualized. There is normal color flow to the adnexa. There is no ovarian torsion. There is no pelvic ascites or fluid collection. Right ovary measures 2.8 x 1.8 x 1.5 cm for a volume of catheter via 4.0 mL. Some subcortical small cysts are present. Left ovary measures 3.4 x 1.9 x 1.4 cm for a volume of 5.0 mL. Multiple cysts are present in a string of pearls fashion on the periphery of the left ovary. US/US pelvic complete IMPRESSION: 1. Normal-appearing uterus. 2. Normal-sized ovaries with multiple cysts in a string of pearls fashion in the periphery of the left ovary. Electronically signed by: Gibran Wadsworth MD 04/16/2024 12:36 AM EDT
== END 2024-04-03 16:20 | disposition home or self-care (01) ==
LOC: HO.US 16:19
PROVIDERS: PCP Student in an Organized Health Care Education/Training Program; Visit Provider Advanced Practice Midwife
DX: N92.0 Excessive and frequent menstruation with regular cycle (principal); N94.4 Primary dysmenorrhea; Z87.42 Personal history of other diseases of the female genital tract
CPT/HCPCS: 76856

== ENCOUNTER 2024-04-30 15:04 | Outpatient (AMB) | payer MEDICAID, SELFPAY ==
[2024-04-30 15:14] VITALS: BP 112/68
--- NOTE | 2024-04-30 15:14 | MHC.OFFVIS ---
Vital Signs 04/30/24 15:14 Height 5 ft 2 in BP 112/68 Intake Visit Reasons: Ultrasound Follow up Information Interpreted: clinical only Gas Manager: Gas Manager Present Allergies No Known Allergies Allergy (Verified 04/30/24 15:15) Medication List - Last Reconciled 04/30/24 by Radha Vazquez CNM desog-e.estradiol/e.estradiol 0.15-0.02 mgx21 /0.01 mg x 5 1 tab PO DAILY fluconazole 150 mg PO DAILY 1 dose Is last menstrual period known: Yes Last menstrual period: 04/10/24 HPI HPI Ultrasound Follow up: Details: Ultrasound follow-up she was not ready for a pelvic exam at the last visit but she did the swabs because she had vaginal itching she came out with yeast and took the Diflucan in it help but she feels like she is itchy again she says she is doing everything right and she wears cotton underwear and at night she sleeps with her cotton underwear what she takes off the panty liners that she has been using all day( which I think are the problem.). She is not sexually active at this time she started control pills the day I saw her on 03/16, at the start of her menses however she put in her rick that she had a 5 day cycle then and then a 5 day cycle 828 but she also said she was bleeding in between she denies any missed pills she is now on her 2nd pack of pills on the 3rd row and she says when she checks on her panty liner this a little streak of blood when or when she wipes I asked her if perhaps she is scratching and perhaps she is maybe that is the source of the spotting that she is seeing. [facility] Female Reproductive History Menstrual Age of Menarche: 12 Date of last menstrual period: 04/10/24 Physical Exam Vital Signs: Last Vital Signs BP 112/68 04/30/24 15:14 Results Reviewed Results Reviewed: Patient: Анна Guerra MR#: [id number] : 2000 Acct:[id number] Age/Sex: 23 / F ADM Date: 04/03/24 Loc: HO.US Attending Dr: Radha Vazquez CNM Ordering Physician: Radha Vazquez CNM Date of Service: 04/03/24 Procedure(s): US pelvic complete Accession Number(s): [id number] cc: Radha Vazquez CNM; Santa Bazzi MD~ EXAMINATION: US PELVIS CLINICAL INFORMATION: Menorrhagia. COMPARISON: None available. TECHNIQUE: Ultrasound of the pelvis is performed using the transabdominal transducers along with Doppler. Transvaginal imaging was refused. FINDINGS: Uterus: The uterus is anteverted and measures 8.2 x 3.3 x 5.0 cm. The double wall endometrial thickness is 3 mm. The uterus is smooth in contour and has normal myometrial echogenicity. No visible fibroid. Nabothian cysts are present in the cervix. Adnexa: Both ovaries are visualized. There is normal color flow to the adnexa. There is no ovarian torsion. There is no pelvic ascites or fluid collection. Right ovary measures 2.8 x 1.8 x 1.5 cm for a volume of catheter via 4.0 mL. Some subcortical small cysts are present. Left ovary measures 3.4 x 1.9 x 1.4 cm for a volume of 5.0 mL. Multiple cysts are present in a string of pearls fashion on the periphery of the left ovary. US/US pelvic complete IMPRESSION: 1. Normal-appearing uterus. 2. Normal-sized ovaries with multiple cysts in a string of pearls fashion in the periphery of the left ovary. Electronically signed by: Gibran Wadsworth MD 04/16/2024 12:36 AM EDT Dictated By: Gibran Wadsworth MD Signed By: <Electronically signed by Gibran Wadsworth MD in OV> 04/16/24 0036 DD/ 1637 TD/TT: 04/03/24 1647 President + Publisher: SS Assessment & Plan Assessment & Plan (1) Hx of ovarian cyst: Comment: Ultrasound shows string of pearls consistent with PCOS...(patient says she was told she had PCOS at [facility] years ago but she did not continue on OCPs then.) Additional labs ordered, we will review all of them at her 1st annual with pap in jun. Code(s): Z87.42 - Personal history of other diseases of the female genital tract Category: Medical (2) Menorrhagia with regular cycle: Code(s): N92.0 - Excessive and frequent menstruation with regular cycle Category: Medical (3) Primary dysmenorrhea: Code(s): N94.4 - Primary dysmenorrhea Category: Medical (4) Hirsutism: Code(s): L68.0 - Hirsutism Category: Medical (5) History of irregular menstrual bleeding: Code(s): Z87.42 - Personal history of other diseases of the female genital tract Category: Medical (6) Yeast infection of the vagina: Comment: See discussion patient complains of continued itching declines exam today will treat with another dose of Diflucan and teaching done recommend no panty liners, Code(s): B37.31 - Acute candidiasis of vulva and vagina Category: Medical Plan Ultrasound follow-up she was not ready for a pelvic exam at the last visit but she did the swabs because she had vaginal itching she came out with yeast and took the Diflucan in it help but she feels like she is itchy again she says she is doing everything right and she wears cotton underwear and at night she sleeps with her cotton underwear what she takes off the panty liners that she has been using all day( which I think are the problem.). She is not sexually active at this time she started control pills the day I saw her on 03/16, at the start of her menses however she put in her rick that she had a 5 day cycle then and then a 5 day cycle 828 but she also said she was bleeding in between she denies any missed pills she is now on her 2nd pack of pills on the 3rd row and she says when she checks on her panty liner this a little streak of blood when or when she wipes I asked her if perhaps she is scratching and perhaps she is maybe that is the source of the spotting that she is seeing. ---------so this visit involved a very lengthy discussion of the question of PCOS her ultrasound showed small cysts arranged in a ring of pearls on 1 of her ovaries and multiple cysts small cysts also on another which could be hallmarks of PCOS but in addition though she does not visually have lots of facial hair and body hair she says that she does and she plucks the hair carefully. Additionally she says her hairs a little bit thinner in the center and so she wears her hair parted to the side. She also says a doctor at [facility] told her that she had PCOS years ago in terms of her cycles she does get a cycle most months the latest she ever is with a. Is a couple of weeks on questioning she says that happens perhaps 4 times a year which could be consistent with PCOS And her periods are heavy and crampier which is why she wanted to start on control pills 1st place. She will be getting labs done for her primary care provider in March and so I have added some markers for PCOS including testosterone DHEA and other labs and we will review them when she comes in for her 1st annual exam with 1st Pap smear in June I explored with her the possibility of increasing her dose of OCPs but she is willing to try these for another month or 2 until I see her and if she is still spotting despite taking pill at the same time every single day then we may consider increasing yes estrogen slightly higher to a 0.3 mg pill. Visit also included a lengthy discussion PCOS and all of the factors involved with it in the the good thing for her is that she is normal weight in maintains herself in a healthy way so she does not have the very common other physical findings of obesity with all of its attendant risks. Additionally I reviewed why pills have to be taken the same time every day because of the daily changes in blood levels of the hormones and why missing them a or being late can contribute to spotting. ---Discussed PCOS in general and specifically about the interplay of the abnormal hormonal milieu related to being overweight, with the elevations of many hormone levels, including testosterone and estrogen, as well as others that contribute to cycles that are anovulatory and therefore prolonged, and when periods do come they come very heavy, and can contribute to lots of cramping, with passage of clots and anemia. Discussed the common symptoms related to the elvated hormonal levels, including increased facial hair, male pattern hair thinning, acne, and increased central abdominal girth. Discussed the interplay with difficulty getting when desired, but still possible, and therefore the need to contracept as appropriate and when needed. Discussed the role of weight loss as the primary, most important, and most likely to succeed, intervention, in achieving healthier status as regards PCOS, and ovulatory regular cycles. Additionally the very important relationship to elevated insulin levels, and blood sugars, and high risk of pre diabetes, progressing to diabetes as well as other metabolic syndromes related to this was discussed. Also discussed common interventions for some of the above, including if appropriate, use of oral contraceptives, etc.. In addition she complains of vaginal itching she does not understand why she still has she does use panty liners every day I highly recommend against and to just use the cotton underwear. We will re-treat with 1 more course of Diflucan it is possible that she maybe scratching herself and that is why she has some spotting she declined exam today Orders: Orders Lutenizing Hormone Today L68.0 - Hirsutism, N92.0 - Excessive and frequent menstruation with regular cycle, N94.4 - Primary dysmenorrhea, Z87.42 - Personal history of other diseases of the female genital tract Testosterone, Free/Total Today L68.0 - Hirsutism, N92.0 - Excessive and frequent menstruation with regular cycle, N94.4 - Primary dysmenorrhea, Z87.42 - Personal history of other diseases of the female genital tract Sex Hormone Binding Globulin Today L68.0 - Hirsutism, N92.0 - Excessive and frequent menstruation with regular cycle, N94.4 - Primary dysmenorrhea, Z87.42 - Personal history of other diseases of the female genital tract Thyroid Stimulating Hormone Today L68.0 - Hirsutism, N92.0 - Excessive and frequent menstruation with regular cycle, N94.4 - Primary dysmenorrhea, Z87.42 - Personal history of other diseases of the female genital tract Prolactin Today L68.0 - Hirsutism, N92.0 - Excessive and frequent menstruation with regular cycle, N94.4 - Primary dysmenorrhea, Z87.42 - Personal history of other diseases of the female genital tract DHEA Sulfate Today L68.0 - Hirsutism, N92.0 - Excessive and frequent menstruation with regular cycle, N94.4 - Primary dysmenorrhea, Z87.42 - Personal history of other diseases of the female genital tract Medications: Refilled fluconazole administer on day 1 of therapy 150 mg PO DAILY 1 tab 0RF Coding Level of Care Code Est Pt Level 3 (04959) Diagnoses Hx of ovarian cyst Z87.42 Menorrhagia with regular cycle N92.0 Primary dysmenorrhea N94.4 Hirsutism L68.0 History of irregular menstrual bleeding Z87.42 Yeast infection of the vagina B37.31
== END 2024-04-30 18:56 | disposition home or self-care (01) ==
PROVIDERS: PCP Student in an Organized Health Care Education/Training Program; Visit Provider Advanced Practice Midwife
DX: Z87.42 Personal history of other diseases of the female genital tract (principal); N92.0 Excessive and frequent menstruation with regular cycle; N94.4 Primary dysmenorrhea; L68.0 Hirsutism; B37.31 Acute candidiasis of vulva and vagina
CPT/HCPCS: 99213

== ENCOUNTER → 2024-04-30 15:04 | Outpatient (BNVA) | payer MEDICAID, SELFPAY | PROVIDERS: PCP Student in an Organized Health Care Education/Training Program; Visit Provider Advanced Practice Midwife | DX: N92.0 Excessive and frequent menstruation with regular cycle (principal); N94.4 Primary dysmenorrhea; L68.0 Hirsutism; B37.31 Acute candidiasis of vulva and vagina; Z87.42 Personal history of other diseases of the female genital tract | CPT/HCPCS: 99212 ==

== ENCOUNTER 2024-06-17 13:46 | Outpatient (AMB) | payer MEDICAID, SELFPAY ==
[2024-06-17 14:01] VITALS: BP 110/62; BMI 24.9
--- NOTE | 2024-06-17 14:01 | A.OFFVIS_ITS ---
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 She was started on control pills after previous visit and she had had an ultrasound which found multiple cysts ovaries. She had a history of her periods possibly up to also painful and so painful she could not and also extremely heavy we are she to wear a diaper. 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 She is not sexually active and has not been for about a year so she has not sure she wants to stay on the pills are not she is contemplating this question. She did not go for all the blood work yet to check for her hormone levels for PCOS as she is waiting to get all of her primary care labs done at the same time. [facility] Female Reproductive History Menstrual Age of Menarche: 12 Duration of menses: 3-5 days Date of last menstrual period: 06/05/24 control method: pills Total pregnancies: 0 Full term: 0 History of abnormal pap smear: No (no previous pap) Physical Exam Vital Signs: Last Vital Signs BP 110/62 06/17/24 14:01 BMI result Body Mass Index 24.9 Const General: healthy appearing, comfortable, no acute distress, well developed and alert Nutritional Appearance: average body habitus Orientation/consciousness: patient oriented x3 Limitations: no limitations HEENT Head: Yes normocephalic Neck Neck: Yes normal visual inspection Chest Chest palpation & inspection: normal inspection of the chest Breast/axilla inspection: normal inspection of the breasts and normal inspection of the axillae Breast/axilla palpation: normal palpation of the breasts and normal palpation of the axillae Resp Effort & Inspection: normal respiratory effort GI Inspection: Yes normal to inspection, No Abdominal wall edema and No distended Palpation (GI): Soft to palpation and nontender Other: External exam within normal limits vagina pink and moist cervix is nulliparous pink moist normal cervix long close thick mobile nontender uterus midposition mobile nontender adnexa nontender good tone Kegel. General: Yes bladder normal to palpation External Female Exam: normal external appearance and normal appearance of the urethra Speculum Exam - Vagina: normal appearance of the vagina, normal palpation and normal vaginal discharge Speculum Exam - Cervix: normal appearance of the cervix, normal palpation and nontender Bimanual exam- vagina & uterus: normal bimanual exam, normal palpation, uterine size normal, bladder normal to palpation, consistency normal, normal palpation, uterine mobility normal, uterine shape normal, No Cervical tenderness present, non-tender and no cervical motion tenderness Bimanual Exam- Adnexa, other: normal adnexae, no masses, normal and No adnexal tenderness Neuro General: patient oriented x3 Results Reviewed Results Reviewed: [place] [id number] Ultrasound Report Signed Patient: Анна Guerra MR#: [id number] : 2000 Acct:[id number] Age/Sex: 23 / F ADM Date: 04/03/24 Loc: . Attending Dr: Radha Vazquez CNM Ordering Physician: Radha Vazquez CNM Date of Service: 04/03/24 Procedure(s): US pelvic complete Accession Number(s): [id number] cc: Radha Vazquez CNM; Santa Bazzi MD~ EXAMINATION: US PELVIS CLINICAL INFORMATION: Menorrhagia. COMPARISON: None available. TECHNIQUE: Ultrasound of the pelvis is performed using the transabdominal transducers along with Doppler. Transvaginal imaging was refused. FINDINGS: Uterus: The uterus is anteverted and measures 8.2 x 3.3 x 5.0 cm. The double wall endometrial thickness is 3 mm. The uterus is smooth in contour and has normal myometrial echogenicity. No visible fibroid. Nabothian cysts are present in the cervix. Adnexa: Both ovaries are visualized. There is normal color flow to the adnexa. There is no ovarian torsion. There is no pelvic ascites or fluid collection. Right ovary measures 2.8 x 1.8 x 1.5 cm for a volume of catheter via 4.0 mL. Some subcortical small cysts are present. Left ovary measures 3.4 x 1.9 x 1.4 cm for a volume of 5.0 mL. Multiple cysts are present in a string of pearls fashion on the periphery of the left ovary. US/US pelvic complete IMPRESSION: 1. Normal-appearing uterus. 2. Normal-sized ovaries with multiple cysts in a string of pearls fashion in the periphery of the left ovary. Electronically signed by: Gibran Wadsworth MD 04/16/2024 12:36 AM EDT RP Dictated By: Gibran Wadsworth MD Signed By: <Electronically signed by Gibran Wadsworth MD in OV> 04/16/24 0036 DD/ 1637 TD/TT: 04/03/24 1647 Packer Operator Automatic: KEIKO Assessment & Plan Assessment & Plan (1) History of irregular menstrual bleeding: Code(s): Z87.42 - Personal history of other diseases of the female genital tract Category: Medical (2) Hirsutism: Code(s): L68.0 - Hirsutism Category: Medical (3) Primary dysmenorrhea: Code(s): N94.4 - Primary dysmenorrhea Category: Medical (4) Menorrhagia with regular cycle: Code(s): N92.0 - Excessive and frequent menstruation with regular cycle Category: Medical (5) Hx of ovarian cyst: Comment: Ultrasound shows string of pearls consistent with PCOS...(patient says she was told she had PCOS at [facility] years ago but she did not continue on OCPs then.) Additional labs ordered, we will review all of them at her 1st annual with pap in jun./; 06/17/2024 patient did not get the labs yet to get them sometime near future asked her to schedule a tele visit to review the labs when she does get them done. She was they on her pills for now but I did review how to stopped them and start them again if she so chose and what to expect if she does,(i.e. A returned who her previous irregular and heavy debilitating menses and probable cyst formation as well). Code(s): Z87.42 - Personal history of other diseases of the female genital tract Category: Medical (6) Well woman exam with routine gynecological exam: Code(s): Z01.419 - Encounter for gynecological examination (general) (routine) without abnormal findings Category: Medical (7) Surveillance for control, oral contraceptives: Code(s): Z30.41 - Encounter for surveillance of contraceptive pills Category: Medical (8) Cervical cancer screening: Comment: 1st Pap 06/17/2024. Code(s): Z12.4 - Encounter for screening for malignant neoplasm of cervix Category: Medical Plan -----Discussed in this visit the following: healthy balanced diet, regular and consistent exercise, getting recommended health screens, doing the best she can for her particular health concerns, kegel exercises, pap smear screening and fol lowup recommendations, mammography screening and SBE, normal changes in cycles in her life stage--- . Reviewed how she is feeling on the pills how they are affecting periods and positive way. Patient isn't sure she wants to stay on pills could she does not like the idea of taking medication but she is going to think about it in the meantime I am reordering enough for her for year so she does not run out and I reviewed with her how to stopped them if she chooses to and I would recommend she stopped the end of a pill pack, and if she wanted to restart them she should start them again at the beginning of a period. Review effect of pills to help with cysts formation in PCOS often people go off pills, for a time and then on again when they need to be on them, and it is her choice but her periods would probably resume being like they were before.. Patient will get her blood work when that is convenient for her and when she does I recommend she schedule a follow-up tele visit so we can review the labs together. Orders: Orders Pap Smear Today Z01.419 - Encounter for gynecological examination (general) (routine) without abnormal findings Bacterial Vaginosis Panel Today N89.8 - Other specified noninflammatory disorders of vagina CT NG by PCR Today N89.8 - Other specified noninflammatory disorders of vagina, Z20.2 - Contact with and (suspected) exposure to infections with a predominantly sexual mode of transmission Medications: Refilled desog-e.estradiol/e.estradiol 0.15-0.02 mgx21 /0.01 mg x 5 1 tab PO DAILY 84 tabs 4RF Coding Level of Care Code Est Pt Prev Care 18-39y(19307) Diagnoses History of irregular menstrual bleeding Z87.42 Hirsutism L68.0 Primary dysmenorrhea N94.4 Menorrhagia with regular cycle N92.0 Hx of ovarian cyst Z87.42 Well woman exam with routine gynecological exam Z01.419 Surveillance for control, oral contraceptives Z30.41 Cervical cancer screening Z12.4
== END 2024-06-17 15:11 | disposition home or self-care (01) ==
PROVIDERS: PCP Student in an Organized Health Care Education/Training Program; Visit Provider Advanced Practice Midwife
DX: Z87.42 Personal history of other diseases of the female genital tract (principal); L68.0 Hirsutism; N94.4 Primary dysmenorrhea; N92.0 Excessive and frequent menstruation with regular cycle; Z01.419 Encounter for gynecological examination (general) (routine) without abnormal findings; Z30.41 Encounter for surveillance of contraceptive pills; Z12.4 Encounter for screening for malignant neoplasm of cervix
CPT/HCPCS: 99395

== ENCOUNTER 2024-06-17 13:51 | Outpatient (REF) | payer MEDICAID, SELFPAY | END 2024-06-17 13:52 | disposition home or self-care (01) | LOC: HO.LNP 13:51 | PROVIDERS: PCP Student in an Organized Health Care Education/Training Program; Visit Provider Advanced Practice Midwife | DX: Z01.419 Encounter for gynecological examination (general) (routine) without abnormal findings (principal); N89.8 Other specified noninflammatory disorders of vagina; Z20.2 Contact with and (suspected) exposure to infections with a predominantly sexual mode of transmission; Z87.42 Personal history of other diseases of the female genital tract; L68.0 Hirsutism; N94.4 Primary dysmenorrhea; N92.0 Excessive and frequent menstruation with regular cycle; Z30.41 Encounter for surveillance of contraceptive pills; Z12.4 Encounter for screening for malignant neoplasm of cervix | CPT/HCPCS: 0352U; 87491; 87591; 88175; 99395 ==

== ENCOUNTER 2024-06-17 15:02 | Outpatient (REF) | payer MEDICAID, SELFPAY ==
[2024-06-18 05:53] LABS: CT PCR NOT DETECTED (Not Detect.); NG PCR NOT DETECTED (Not Detect.)
[2024-06-18 11:16] LABS: Bacterial Vaginosis PCR POSITIVE (Negative); Candida Group PCR NOT DETECTED (Not Detect); Candida glab krusei PCR NOT DETECTED (Not Detect); Trichomonas vaginalis PCR NOT DETECTED (Not Detect)
== END 2024-06-17 15:03 | disposition home or self-care (01) ==
LOC: HO.LAB 15:02
PROVIDERS: Visit Provider Advanced Practice Midwife
DX: N89.8 Other specified noninflammatory disorders of vagina (principal); Z20.2 Contact with and (suspected) exposure to infections with a predominantly sexual mode of transmission
CPT/HCPCS: 0352U; 87491; 87591

== ENCOUNTER 2024-06-20 08:39 | Emergency (ER) | payer OTHER, SELFPAY ==
[2024-06-20 08:42] VITALS: BP 120/71; PULSE 97; RESP 16; TEMP 36.8; O2SAT 99; BMI 24.9
--- NOTE | 2024-06-20 10:15 | ED_ITS ---
HPI - Wound/Laceration General Chief Complaint: Wound/Laceration Stated Complaint: l hand lac Time Seen by Provider: 06/20/24 09:59 Source: patient, RN notes reviewed and old records reviewed Mode of arrival: ambulatory History of Present Illness ED Provider: Marisol Gregorio PA-C HPI narrative: 24-year-old female with a past medical history of her she was then presenting to the ED complaining of laceration to left hand s/p using knife to open deodorant this morning. Tetanus up-to-date. Denies numbness, tingling, weakness. Denies injury to other area Related Data Previous Rx's ?Medication ?Instructions ?Recorded desogestrel-e.estradiol 0.15 1 tab PO DAILY #84 tabs 06/17/24 mg-0.02 mg(21)/e.estrad 0.01 mg(5) tablet metronidazole 500 mg tablet 500 mg PO BID 7 days #14 tabs 06/18/24 Allergies Allergy/AdvReac Type Severity Reaction Status Date / Time No Known Allergies Allergy Verified 06/20/24 08:43 Review of Systems Review of Systems: Yes all other systems are reviewed and are negative Constitutional: Constitutional: Reports as per [facility] Past Medical History Attestation statement: The following information was validated with the patient. Source: old records reviewed Physical Exam Vital Signs: Vital Signs: Last Vital Signs Temp 98.2 F 06/20/24 08:42 Pulse 97 06/20/24 08:42 Resp 16 06/20/24 08:42 BP 120/71 06/20/24 08:42 Pulse Ox 99 06/20/24 08:42 O2 Del Method Room Air 06/20/24 08:42 BMI result Body Mass Index 24.9 Const: General: cooperative, healthy appearing and no acute distress Orientation/consciousness: patient oriented x3 Limitations: no limitations HEENT: Head: Yes normal to inspection and Yes atraumatic Ears: hearing grossly normal bilaterally General nose exam: Normal external nose present Face and sinus: Yes normal facial exam Eyes: General: appearance normal, both eyes and all related structures EOM: EOMs intact bilaterally Neck: Neck: Yes normal visual inspection and Yes no meningeal signs Resp: Effort & Inspection: normal respiratory effort and no respiratory distress Cardio: Rate: regular rate Skin: Other: 1 cm superficial laceration noted to lef t hand hypothenar eminence Rashes: no rashes Neuro: General: patient oriented x3, tone normal and no meningeal signs Cranial nerves: Yes CN's II-XII intact bilaterally Gait exam (Neuro): Normal gait present Extrem: General: Yes normal to inspection Medical Decision Making Medical Decision Making MDM Narrative: 24-year-old female with a past medical history of her she was then presenting to the ED complaining of laceration to left hand s/p using knife to open deodorant this morning. On exam vital signs stable, NAD, nontoxic appearing, physical exam as noted above with superficial laceration noted to left palm at hypothenar eminence. No active bleeding. No evidence of underlying structure disturbance. Tetanus up-to-date Wound repaired with Dermabond Please refer to course for remaining clinical decision making, interpretation of labs/imaging results, and discussions with consultants and/or family members. Results discussed with patient including worrisome signs and symptoms and strict return precautions, and when to return to the emergency department. They verbalized understanding and feel safe for discharge at this time. Differential Diagnosis Differential Diagnoses: The differential diagnosis associated with the presentation includes As above External Record Review External record reviewed: Inpatient record, Office record, Outpatient record, Prior outpatient labs, Prior outpatient radiology, Primary care record and Outside ED record Tests considered The following testing was considered but not selected: As above Prescription Management I considered prescription management with: Pain Medication Procedures Laceration Laceration 1: Site: hand Side (If applicable): left Size (cm): 1 Description: linear Depth: simple, single layer Pre-repair: wound explored and irrigated extensively Skin layer closed with: other (Dermabond) Discharge Plan Discharge Clinical Impression: Hand laceration Patient Disposition: Home, Self-Care Instructions: Laceration (DC) Additional Instructions: Your wound was repaired with skin glue Keep dry and clean Avoid picking at the area This will fall off on its own If area begins to look infected, is red, there is pus drainage or you have fever return to the emergency department Prescriptions: No Action metronidazole 500 mg tablet 500 mg PO BID 7 Days Qty: 14 0RF Rx Instructions: Take with food, Avoid alcohol and vinegar products desog-e.estradiol/e.estradiol 0.15-0.02 mgx21 /0.01 mg x 5 tablet 1 tab PO DAILY Qty: 84 4RF Referrals: Santa Bazzi MD [Primary Care Provider] - 5 days Stand Alone Forms: Work/School Release Print Language: Turkish
== END 2024-06-20 10:30 | disposition home or self-care (01) ==
PROVIDERS: Emergency Provider Emergency Medicine; PCP Student in an Organized Health Care Education/Training Program
DX: S61.412A Laceration without foreign body of left hand, initial encounter (principal); M79.642 Pain in left hand; W26.0XXA Contact with knife, initial encounter; Y93.9 Activity, unspecified; Y92.000 Kitchen of unspecified non-institutional (private) residence as the place of occurrence of the external cause; Y99.8 Other external cause status
CPT/HCPCS: 12001; 99281; 99284

== ENCOUNTER 2024-07-18 14:20 | Outpatient (AMB) | payer OTHER, SELFPAY ==
--- NOTE | 2024-07-18 14:30 | A.OFFVIS_ITS ---
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 Required: No Information Interpreted: non-clinical & clinical Blaster Helper: Blaster Helper Present (Esperanza CHAPIN) Accompanied by: Self / Same As Patient Allergies No Known Allergies Allergy (Verified 07/18/24 14:33) HPI Comments Details: Presenting referred by Radha Vazquez CNM for an abnormal Pap smear showing LSIL cannot exclude HSIL PFSH Female Reproductive History Menstrual Age of Menarche: 12 Review of Systems Const All systems reviewed & are unremarkable except as noted in HPI and below Reports as per HPI and Reports no additional complaints GI Reports no additional complaints Reports no additional complaints Physical Exam Vital Signs: BMI result Body Mass Index 24.6 Office Procedures Colposcopy Colposcopy: Pre-Procedure Counseling: Before beginning the procedure, I conducted comprehensive counseling with the patient. We thoroughly discussed the procedure itself, including its details, alternatives, and all associated risks. This included but not limited to the following complications such as bleeding, infection, and injury to the vagina, bladder, and vessels, as well as the potential need for transfusion with all its associated risks. Subsequently, the patient sign the consent. Pap smear result: LSIL can not exclude high grade AYE. Urine test in office = Negative Procedure: During the procedure, the following steps were performed: A speculum was inserted, and acetic acid was applied. Colposcopy was conducted, allowing visualization of the transformation zone. Acetowhite lesions were identified at the 5+6+7+9+11+1+3 o'clock position. Cervical biopsies were obtained from the 5+6+7+9+11+1+3 o'clock position, followed by an endocervical curettage (ECC). Vaginoscopy of the upper vagina revealed no evidence of aceto-white lesions. Hemostasis was achieved using Monsel solution, and the patient tolerated the procedure well. Post-Procedure Instructions: The patient was advised to promptly contact the office or the after hours answering service or go to the emergency room if experiencing a temperature exceeding 100.4?F, abdominal pain, nausea/vomiting, or bleeding. Additionally, the patient was instructed to abstain from vaginal intercourse and bathtub use. The patient confirmed understanding of these instructions. Discharge Instructions: The patient was instructed to schedule a follow-up appointment in 2 weeks for further evaluation and management. Please note that this note was generated using a voice recognition program, and errors may have occurred during senior it architect. [id number] of cervix including upper vagina with biopsy and ECC Procedure code (CPT) selection complete Assessment & Plan Assessment & Plan (1) Abnormal Pap smear of cervix: Comment: LGSIL cannot exclude HGSIL Code(s): R87.619 - Unspecified abnormal cytological findings in specimens from cervix uteri Category: Medical Plan: Discussed with the patient the result of her abnormal pap, its significance, risk of progression, persistence, and regression. the false positive/negative rate of a Pap smear as a screening test in detecting cervical cancer and the i ndication for a diagnostic test -colposcopy, biopsy, endocervical curettage. The patient verbalized understanding and agreed with the plan, all questions answered. Colpo/biopsy/ECC done, see procedure note Orders: Orders AMB Colposcopy Today R87.619 - Unspecified abnormal cytological findings in specimens from cervix uteri Coding Level of Care Code Procedure Only Diagnoses Abnormal Pap smear of cervix R87.619 CPT Codes Colposcopy - CPT: 21023-Vackprzao of cervix including upper vagina with biopsy and ECC ([id number])
[2024-07-18 14:32] VITALS: BMI 24.6
--- OUTSIDE RECORDS SUMMARY | 2024-07-24 03:56 | XMS_ITS | Data Portability ---
Author Organization [facility], [address] Address [address] [place] [address] Assessment No assessment recorded. Plan of Treatment Reminders Order Date Submit Date Provider Last Modified By Organization Details Last Modified Time Details Appointments None recorded. Lab rapid SARS CoV 2 Ag, QL IA, respiratory specimen 2022 023 [email or web address] [facility], [address] [place] [address], [id number], 14:22:39 Referral emergency medicine referral 2022 023 [email or web address] 1 Not available 12:14:54 Procedures None recorded. Surgeries None recorded. Imaging None recorded. Medication Orders None recorded. Patient TargetsNo targets recorded. Patient Instructions Encounter Date Encounter Id Patient Instructions Last Modified By Organization Details Last Modified Time 09/17/2022 [id number] headache: care instructions [email or web address] Not available 09/17/2022 14:22:13 Based on your ex am and presentation my recommendation if for you to go immediately to the Emergency Room. The ER is better equipped to be able to assess you and do more studies to make sure that your complaint is not life threatening. Unfortunately, in the urgent care setting we do not have the ability to do many tests and studies. My concern is for you, which is why my recommendation is the Emergency Room. [email or web address] Not available 09/17/2022 14:20:54 Reason for Referral Emergency Medicine Referral for Headache Referring Physician: Lakesha Huang, Urgent Care, Encounter Date: 09/17/2022 Results Created Date Observation Date Name Description Value Unit Range Abnormal Flag Note LastModifiedBy Organization Detail LastModifiedTime 09/17/19 23 09/17/2022 rapid SARS CoV 2 Ag, QL IA, respi rator y speci men Unknown Analyte Normal =Negat trish Not Available alia [address], [id number], 09/17/2022 14:22:27 09/17/19 23 09/17/2022 rapid SARS CoV 2 Ag, QL IA, respi rator y speci men Unknown Analyte negati ve Not Available [facility] [address], [address], 09/17/2022 14:22:27 Result Notes None recorded. Problems No Known Problems Medical Equipment None Reported. Allergies No known drug allergies Medications Name Sig Start Date Stop Date Status Note LastModified by Organization Details LastModified Time Apri 0.15 mg-0.03 mg tablet TAKE 1 TABLET BY MOUTH EVERY DAY 09/17 completed Not Available Not Available Not Available amoxicillin 875 mg tablet TAKE 1 TABLET BY MOUTH 2 TIMES A DAY FOR 14 DAYS. 09/17 completed Not Available Not Available Not Available amoxicillin 875 mg-potassium clavulanate 125 mg tablet TAKE 1 TABLET BY MOUTH TWICE A DAY FOR 7 DAYS 09/17 completed Not Available Not Available Not Available 09/02 (28) 1 mg-20 mcg (21)/75 mg (7) tablet TAKE 1 TABLET BY MOUTH EVERY DAY 09/17 completed Not Available Not Available Not Available Vitals Date Recorded Body height Body mass index (BMI) Body weight Oxygen saturation Oxygen saturation in Arterial blood by Pulse oximetry Heart rate Respiratory rate Body temperature Systolic blood pressure Diastolic blood pressure Provider Name and Address Organization Details Last Updated DateTime 3 154.94 cm 24.6 kg/m2 87894.0 1 g 100 % 100 % 61 /min 20 /min 97.8 [degF] 119 mm[Hg] 85 mm[Hg] Shadia Montaño PA - [facility] 3 13:37:40 Social History Question Answer Notes LastModified by Organizat ion Details LastModified Time Tobacco Smoking Status Never Smoker Shadia sandy PA - [facility] 09/17/2022 13:34:12 What Is Your Level Of Alcohol Consumption? Occasional Information not available 09/17/2022 Have You Had Direct Contact, Or Contact During Intimacy, With Monkeypox Rash, Scabs, Or Body Fluids From A Person With Monkeypox? No Information not available 09/17/2022 Do You Use Any Illicit Or Recreational Drugs? No Information not available 09/17/2022 Have You Recently Traveled Abroad? No Information not available 09/17/2022 Do You Or Have You Ever Used Any Other Forms Of Tobacco Or Nicotine? No Information not available 09/17/2022 Sex: Unknown Functional Status None recorded. Mental Status None recorded. Family History Relationship Description Onset Age of this Age Resolved Age Notes LastModified by Organization Details LastModified Time Unspecified Relation Diabetes mellitus States mostly everyo ne Not available 09/17/2022 13:33:54 Mother Hypertensive disorder Not available 2022 13:34:02 Medical History No medical history recorded. Gynecological HistoryNo gynecological history recorded. Obstetrics History GPAL:G 0 P 0 0 0 0 Immunizations Vaccine Type Date Status Note Provider Nam e and Address Organization Details Recorded Time Influenza, split virus, quadrivalent, preservative 5 completed Shadia Danyel null, PA - [facility] 09/17/2022 13:33:03 meningococcal B, recombinant 2 completed Shadia Davis null, PA - [facility] 09/17/2022 13:33:03 COVID-19, mRNA, LNP-S, PF, 30 mcg/0.3 mL dose, lisbet-sucrose 2 completed Shadia Danyel null, PA - [facility] 09/17/2022 13:33:03 COVID-19, mRNA, LNP-S, PF, 30 mcg/0.3 mL dose, lisebt-sucrose 2 completed Shadia Danyel null, PA - [facility] 09/17/2022 13:33:03 Hep A, ped/adol, 2 dose 7 completed Shadia Danyel null, PA - [facility] 09/17/2022 13:33:03 Hep A, ped/adol, 2 dose 8 completed Shadia Davis null, PA - [facility] 09/17/2022 13:33:03 meningococcal MCV4P 2 completed Shadia Davis null, PA - [facility] 09/17/2022 13:33:03 Influenza, split virus, quadrivalent, PF 8 completed Shadia Danyel null, PA - [facility] 09/17/2022 13:33:03 Influenza, split virus, quadrivalent, PF 9 completed Shadia Danyel null, PA - [facility] 09/17/2022 13:33:03 Past Encounters Encounter ID Performer Location Encounter Start Date Encounter Closed Date Diagnosis/Indication Diagnosis SNOMED-CT Code Diagnosis ICD10 Code [id number] [facility] [address] [place] [address] 10/01/2021 16:55:37 10/01/2021 19:11:26 [id number] [facility] [address] [place] [address] 11/15/2021 17:46:33 11/15/2021 19:10:40 [id number] [address] [address] [place] [address] 12/30/2021 17:46:54 12/30/2021 19:06:34 [id number] [address] [address] [place] [address] 04/20/2022 17:23:04 04/20/2022 20:00:29 [id number] BEE THOMPSON [address] [address] [place] [address] 09/17/2022 12:00:11 09/17/2022 14:25:35 Headache 91215901 R51.9 Health Concerns Section Related Observation LastModified by Organization Detai ls LastModified Time None Recorded Concern Status LastModified by Organization Details LastModified Time None Recorded Advance Directives Directive None Recorded Payers Encounter Date Sequence Insurance Name Policy Number Policy Fontenot Covered Member ID Fontenot Member ID Guarantor Name 10/01/2021 1 [facility] [employer] - TOGETHER (MEDICAID HMO) [id number] Анна Strickland Charlie [id number] 1 Анна Charlie 11/15/2021 1 [facility] [employer] - TOGETHER (MEDICAID HMO) [id number] Анна E Charlie [id number] 1 Анна Guerra 12/30/2021 1 [facility] [employer] - TOGETHER (MEDICAID HMO) [id number] Анна E Charlie [id number] 1 Анна Guerra 04/20/2022 1 [facility] [employer] - TOGETHER (MEDICAID HMO) [id number] Анна E Charlie [id number] 1 Анна Guerra 09/17/2022 1 [facility] [employer] - TOGETHER (MEDICAID HMO) [id number] Анна E Charlie [id number] 1 Анна Guerra Notes Date Note Type Note Provider Name and Address Organization Details Recorded Time 09/17/2022 text/html Headache UCReported bypatient.source of patient informationpatient ; Patient arrived at Urgent Care ambulatory Location:orbital; unilateral; frontal Quality:worst headache ever Severity:severe Onset/Timing:gradu al Context:not related to trauma Alleviating factors:OTC medication Associated Symptoms:no vomiting;sleep disturbancesNotes: The patient reports for the last 2 weeks has gotten a progressive headache on the right side. Isolated on the right side behind the eye. She states that she was taking Ibuprofen that was giving a little relief but as soon as it did wear off the headache was back. She states that it is getting more severe and this morning she woke up with pain on the back of her neck. She reports at work for the last few days notices changes in her vision. If she looks down and then looks up she notices blackness around objects - that last a few seconds. No facial trauma. No history of migraine headaches. Not electrical pains from cheek or in the back of the head. No new medications. Reports that her mom does have a benign tumor in her head that is inopperative but not sure where or what. She does become tearful while taking the history stating that she has never had a headache like this. Is affecting her sleep now. She reports today when she woke up her dad said her right face was swollen around her eye but she said that has resolved. No fevers. BEE THOMPSON [address], [place], [address], PA - [facility] 09/17/2022 14:24:49 OBGyn Episode No OBEpisode recorded.
== END 2024-07-18 15:04 | disposition home or self-care (01) ==
PROVIDERS: PCP Student in an Organized Health Care Education/Training Program; Visit Provider Obstetrics & Gynecology
DX: R87.619 Unspecified abnormal cytological findings in specimens from cervix uteri (principal)
CPT/HCPCS: 57454

== ENCOUNTER 2024-07-18 14:20 | Outpatient (REF) | payer OTHER, SELFPAY | END 2024-07-18 14:21 | disposition home or self-care (01) | LOC: HO.LNP 14:20 | PROVIDERS: PCP Student in an Organized Health Care Education/Training Program; Visit Provider Obstetrics & Gynecology | DX: R87.619 Unspecified abnormal cytological findings in specimens from cervix uteri (principal) | CPT/HCPCS: 57454; 88305; 88342; 88360 ==

== ENCOUNTER 2024-08-21 13:38 | Outpatient (AMB) | payer OTHER, SELFPAY ==
--- NOTE | 2024-08-21 13:55 | MHC.OFFVIS ---
Intake Visit Reasons: Colpo follow up Turkish Rubber: Turkish Rubber Present (Breanna) Accompanied by: Self / Same As Patient Allergies No Known Allergies Allergy (Verified 08/21/24 13:56) HPI Comments Details: Presenting post colpo for follow-up. The patient is doing well with no complaints. The pathology showed the following: A. Endocervix, curettage: Endocervical glandular epithelium; negative for dysplasia; no squamous component present. B. Cervix, 1:00, biopsy: Endocervical glandular mucosa with marked inflammation and squamous metaplasia with reactive changes; negative for dysplasia. C. Cervix, 3:00, biopsy: Endocervical glandular mucosa with inflammation and squamous metaplasia with reactive changes; negative for dysplasia. D. Cervix, 5:00, biopsy: Endocervical glandular mucosa with marked inflammation and squamous metaplasia with reactive changes; negative for dysplasia. E. Cervix, 6:00, biopsy: Endocervical glandular mucosa with marked inflammation and squamous metaplasia with reactive changes; negative for dysplasia. F. Cervix, 7:00, biopsy: Endocervical glandular mucosa with marked inflammation and squamous metaplasia with reactive changes; negative for dysplasia. G. Cervix, 9:00, biopsy: Endocervical glandular mucosa with marked inflammation and focal squamous metaplasia with reactive changes; negative for dysplasia. H. Cervix, 11:00, biopsy: Endocervical glandular mucosa with inflammation and focal squamous metaplasia with reactive changes; negative for dysplasia. Comment: The dysplastic cells in the patient's previous Pap test ([id number]) are not seen in the current biopsy [facility] Female Reproductive History Menstrual Age of Menarche: 12 Review of Systems Const All systems reviewed & are unremarkable except as noted in HPI and below Reports as per HPI and Reports no additional complaints GI Reports no additional complaints Reports no additional complaints Assessment & Plan Assessment & Plan (1) Abnormal Pap smear of cervix: Comment: LGSIL cannot exclude HGSIL Code(s): R87.619 - Unspecified abnormal cytological findings in specimens from cervix uteri Category: Medical Plan: Discussed with the patient the pathology results of the colposcopy biopsies & endocervical curettage ( negative). Discussed with the patient the sensitivity specificity, positive and negative predictive value in detecting cervical cancer in addition discussed the regression, persistence and progression rates. Recommended Pap smear in 12 months, if cytology and or HPV are abnormal will proceed was colposcopy biopsy and endocervical curettage. Instructions given to the patient to schedule a Pap smear appointment in 1 year. All questions answered the patient verbalized understanding. Coding Level of Care Code Est Pt Level 3 (44334) Diagnoses Abnormal Pap smear of cervix R87.619
== END 2024-08-21 14:34 | disposition home or self-care (01) ==
PROVIDERS: PCP Student in an Organized Health Care Education/Training Program; Visit Provider Obstetrics & Gynecology
DX: R87.619 Unspecified abnormal cytological findings in specimens from cervix uteri (principal)
CPT/HCPCS: 99213

== ENCOUNTER → 2024-08-21 13:38 | Outpatient (BNVA) | payer OTHER, SELFPAY | PROVIDERS: PCP Student in an Organized Health Care Education/Training Program; Visit Provider Obstetrics & Gynecology | DX: R87.619 Unspecified abnormal cytological findings in specimens from cervix uteri (principal) | CPT/HCPCS: 99212 ==

== ENCOUNTER 2025-03-06 10:11 | Emergency (ER) | payer OTHER, SELFPAY ==
[2025-03-06 10:21] VITALS: BP 113/75; PULSE 81; RESP 18; TEMP 36.4; O2SAT 100; BMI 21.7
--- NOTE | 2025-03-06 11:23 | ED_ITS ---
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 Not on blood thinners. Related Data Previous Rx's ?Medication ?Instructions ?Recorded desogestrel-e.estradiol 0.15 1 tab PO DAILY #84 tabs 1 08/17/23 mg-0.02 mg(21)/e.estrad 0.01 mg(5) tablet butalbital 50 mg-acetaminophen 325 1 cap PO Q4H PRN mi graine headache 03/06/25 mg-caffeine 40 mg-codeine 30 mg cap #4 caps Allergies Allergy/AdvReac Type Severity Reaction Status Date / Time No Known Allergies Allergy Verified 03/06/25 10:24 Review of Systems Constitutional: Constitutional: Reports as per [facility] Social History Social History Advance Directives: No Advance Directives Information Provided: Yes Do you have a plan to hurt others: No Plan Physical Exam Vital Signs: Vital Signs: Last Vital Signs Temp 98.3 F 03/06/25 12:27 Pulse 79 03/06/25 12:27 Resp 16 03/06/25 12:27 BP 105/69 03/06/25 12:27 Pulse Ox 100 03/06/25 12:27 O2 Del Method Room Air 03/06/25 12:27 BMI result Body Mass Index 21.7 Const: Other: * Gen: Sitting up on the gurney, wearing dark glasses * HEENT: PERRLA, EOMI, MMM, * Resp: ?No wheezing rales rhonchi no stridor moving air well * Abd: ?Bowel sounds are present, no tenderness no rebound no rigidity * MSK: FROM, strength 5/5 all extremities * Skin: Warm, dry, intact, * Neuro: ?Alert and oriented x3, moving upper and lower extremities symmetrically, no obvious facial asymmetry noted Medications Administered Discontinued Medications Generic Name Dose Route Start Last Admin Trade Name [place] PRN Reason Stop Dose Admin Acetaminophen/Butalbital/Caffeine 1 tab 03/06/25 11:23 03/06/25 11:45 Butalb/Acetamin/Caff 50/325/40 Tablet PO 03/06/25 11:24 1 tab ONCE ONE Administration Ketorolac Tromethamine 15 mg 03/06/25 11:23 03/06/25 11:46 Ketorolac Tromethamine 15 Mg/Ml Vial IM 03/06/25 11:24 Not Given ONCE ONE Medical Decision Making Medical Decision Making MDM Narrative: Had a discussion with the patient as she is 24 years old, had fairly minor injury 2 days ago without any neurologic deficits with migraine presentation I did not feel that CT imaging would be indicated in her case this was considered on I will re-evaluate her, so shared decision-making with the patient as that we will not obtain imaging at least at this time, we will medicate her for her symptoms, did not feel further workup as indicated such as blood work she is not presenting with fevers and headache to suspect meningitis etc. and given the fact that she has had an impact and presenting with non neurologic presentation, did not feel this is related to cavernous venous thrombosis necessitating CT imaging with IV contrast. 14:04 patient re-evaluated, she is feeling much better, we will discharge home on some pain medication for migraines, and a work note Differential Diagnosis Differential Diagnoses: The differential diagnosis associated with the presentation includes Concussion, migraine, tension headache, subarachnoid hemorrhage, cavernous venous thrombosis Admission/Observation 2022 Emergency Medicine Coding Guide from [email or web address] on 03/06/2025 All calculations should be rechecked by clinician prior to use RESULT SUMMARY: 4 Estimated Level of Service Problems: Moderate (4) Risk: Moderate (4) Data: Minimal (2) NARRATIVE MDM: This patient's problem complexity is Moderate as patient: has an acute complicated injury requiring significant evaluation or with concern for morbidity or multiple treatment options. This patient's risk is Moderate due to: overall presentation requiring evaluation for a potentially Moderate-risk process. This patient's data complexity is Minimal. INPUTS: Number and Complexity ?> 7 = 4: acute, complicated injury (g) Risk level ?> 3 = Moderate Tests ordered ?> 0 = 0 Tests results reviewed (excluding labs) ?> 0 = 0 Prior external notes reviewed ?> 0 = 0 Assessment requiring and independent historian ?> 0 = No Independent interpretation of tests ?> 0 = No Discussed management/test interpretation w/external professional ?> 0 = No Tests considered The following testing was considered but not selected: CT head Prescription Management I considered prescription management with: Pain Medication Discharge Plan Discharge Clinical Impression: Bad headache Patient Disposition: Home, Self-Care Additional Instructions: I recommend Tylenol 975 mg every 6 hours for pain as needed, ibuprofen 400 mg every 6 hours as needed for pain, and I will prescribe a few doses of Fioricet for your migraine like presentation, it has been mindful it also has acetaminophen/Tylenol in it so do not over medicate herself, stay well hydrated, avoid screen time, worsening changes come back to the ER, as we have had the discussion I suspect you have migraine or concussion but likely a migraine exacerbated by an impact at work, and we discussed the reason why CT would not be a good choice at this time. Prescriptions: New fhqmnkdeph-tqikpsngvx-qfn-cod [id number] mg capsule 1 cap PO Q4H PRN (Reason: migraine headache) Qty: 4 0RF No Action desog-e.estradiol/e.estradiol 0.15-0.02 mgx21 /0.01 mg x 5 tablet 1 tab PO DAILY Qty: 84 4RF Stand Alone Forms: Work/School Release Print Language: Kinyarwanda
[2025-03-06] MEDS: Butalb/Acetamin/Caff 50/325/40 TABLET 1 TAB PO (11:45)
[2025-03-06 12:27] VITALS: BP 105/69; PULSE 79; RESP 16; TEMP 36.8; O2SAT 100
--- OUTSIDE RECORDS SUMMARY | 2025-03-06 12:32 | XMS_ITS | Clinical Summary ---
Author Organization [facility] Address [address] [place] [address] Phone Care Team Providers Care Car Driver Name Role Phone Unavailable Primary Care Provider Unavailabl e Allergies Active Allergy Reactions Criticality Noted Date Comments Avocado Medium 08/24/2021 Food 10/17/2018 apples, cherries Fruit Extracts Medium 08/24/2021 Peanut Butter Flavoring Agen t (Non-Screening) 07/27/2022 Orange Pulp Medium 08/24/2021 Medications ibuprofen 800 MG tablet Take 800 mg by mouth every 8 (eight) hours as needed. for pain 08/24/2021 Active Active Problems Problem Noted Date Diagnosed Date Breakthrough bleeding on OCPs 11/02/2021 Overview (06/07/2022): Last Assessment & Plan: Explained this is likely due to lack of regular use. Can try to set an alarm or switch to another method. She opted for Nexplanon. Given not sexually active, she will stop OCP for now and return in a couple weeks for Nexplanon placement. Pelvic US ordered to evaluate for intracavitary pathology. Other constipation 10/15/2020 Overview (10/15/2020): Advised increasing water intake, increasing F/V and fiber intake Handouts given Multiple food allergies 10/15/2020 Overview (10/15/2020): Advised appt with Lumber Yard Worker to further evaluate Pt to call herself - list given Underimmunized 07/24/2019 Overview (07/27/2022): Declines HPV and flu Dysmenorrhea 07/24/2019 Resolved Problems Problem Noted Date Diagnosed Date Resolved Date Need for case management follow-up 10/15/2020 07/27/2022 Overview (10/15/2020): STD screen not done due to national shortage of tests Attention deficit disorder of childhood 09/24/2012 04/24/2018 Immunizations Immunization Administration Dates Next Due COVID-19 Pfizer, lisbet-sucros e, 12+ years 10/10/2021,09/19/2021 DTaP 10/12/2005, 3,2001,09/06,2001 Hep A, ped/adol 04/24/2018,01/24/2017 Hep B, ped/adol 10/17/2002,2001,2001 Hib (HbOC) 2001 IPV 10/12/2005, 2,2001,06/23 Influenza, injectable, quadrivalent 07/22/2015 Influenza, injectable, quadr ivalent, preservative free 07/24/2019,04/24/2018 Influenza, intranasal, quadrivalent 07/22/2015,1 Influenza, intranasal, trivalent 09/05/2012,07/14 MMR 10/12/2005,05/07/2002 Meningococcal B Trumenba 07/27/2022 Meningococcal Conj (Menactra) MCV4P 07/27/2022,0 09/24/2014 Pneumococcal Conjugate 2001,2001,05/2001 Tdap 09/24/2014 Varicella 12/01/2006,05/07/2002 Family History Medical History Relation Name Comments No Known Problems Brother zuleima Strickland ADD / ADHD Father zuleima Arthritis Mother cathleen Asthma Mother cathleen Migraines Mother cathleen Diabetes Other Hyperlipidemia Other Stroke Other Relation Name Status Comments Brother zuleima Strickland Alive Brother: Alive and well Father zuleima Alive Father: ADD/ADH D Mother cathleen Alive Mother: Migrain es Other Family history of Diabetes mellitus, Family history of Hyperlipidemia Social History Tobacco Use Types Packs/Day Years Used Date Smoking Tobacco: Never Smokeless Tobacco: Never Tobacco Cessation:Counseling Given: Yes Comments:Never smoker Hunger/Food Answer Date Recorded In the last 12 months, did y ou or your family ever eat less than you felt you should because there wasn't enough money for food? No 07/27/2022 Stable Housing Answer Date Recorded Are you worried that in the next 2 months you may not have stable housing? No 07/27/2022 Transportation Concerns Answer Date Rec orded In the last 12 months, have you or your family ever had to go without healthcare because you didn't have a way to get there? No 07/27/2022 Hazards in Home Answer Date Recorded Think about the place you li ve. Do you have problems with any of the following? Pests (mice or roaches), mold, no/not working smoke detectors, water leaks, no window guards. No 2021 Financing Utilities Answer Date Recorde d In the last 12 months, has t he electric, gas, oil, or water company threatened to shut off your services in your home? No 07/27/2022 Safety at Home Answer Date Recorded Are you or your family worried about feeling saf e in your home? No 07/27/2022 Outside Support Answer Date Recorded Do you feel that you need mo re support from other people or programs to help you care for yourself or your family? No 07/27/2022 Understanding Health Concerns Answer Da te Recorded Do you need help understandi ng your or your child's healthcare needs (diagnosis, medications, plan, etc.)? No 07/27/2022 Financing Health Concerns Answer Date R ecorded In the last 12 months, was t here a time when your child needed to see a doctor or get medications or supplies but could not because of cost? No 07/27/2022 Missing School or Work Answer Date Mauricio rded Did you or your child miss s chool or work because of a health problem that could have been avoided? No 07/27/2022 Comments No Sex and Gender Information Value Date Recorded Sex Assigned at Not on file Legal Sex Female 5:14 PM EDT Gender Identity Female 09/19/2021 7:58 AM EST Sexual Orientation Straight 07/27/2022 10 :51 AM EST Last Filed Vital Signs Vital Sign Reading Time Taken Comments Blood Pressure 110/80 07/27/2022 11:18 AM EST Ma nual Pulse 81 07/27/2022 10:13 AM EST Temperature 36.6 C (97.9 F) 07/27/2022 10:13 AM EST Respiratory Rate - - Oxygen Saturation 99% 06/28/2016 12:00 AM EST Inhaled Oxygen Concentration - - Weight 57.4 kg (126 lb 9.6 oz) 07/27/2022 10:13 AM EST Height 154.9 cm (5' 1 ) 07/27/2022 10:13 AM EST Body Mass Index 23.92 07/27/2022 10:13 AM EST Plan of Treatment Health Maintenance Due Date Last Done Comments HPV Vaccines (1 - 3-dose series) 2016 Men B Vaccine (2 of 2 - Trumenba SCDM 2-dose series) 01/25/2023 07/27/2022 COVID-19 Vaccine (3 - season) 2024 10/10/2021, 09/19/2021 DTaP,Tdap,and Td Vaccines (7 - Td or Tdap) 09/24/2024 09/24/2014, 10/12/2005, 10/17/2002, Additional history exists Influenza Vaccines (#1) 2025 07/24/20 19, 04/24/2018, 07/22/2015, Additional history exists HIB Vaccines Aged Out 2001 No longer eligi ble based on patient's age to complete this topic Pneumococcal Vaccine Aged Out 2001, 2001, 2001 No longer eligible based on patient's age to complete this topic Hepatitis B Vaccines Completed 10/17/2002, 2001, 2001 IPV Vaccines Completed 10/12/2005, 10/13, 2001, Additional history exists MMR Vaccines Completed 10/12/2005, 05/07/2002 Varicella Vaccines Completed 12/01/2006, 05/07/2002 Hepatitis A Vaccines Completed 04/24/2018, 01/25/20 17 Meningococcal Vaccine Aged Out 07/27/2022, 015 No longer eligible based on patient's age to complete this topic Procedures * Due to [place] state law, this organization might not be sharing sensitive test results. Procedure Name Priority Date/Time Associated Diagnosis Comments CHLAMYDIA AND GONORRHEA, AMPLIFIED Routine 07/27/2022 11:24 AM EST Encounter for screening examination for chlamydial infection from Last 3 Months or Most Recently Relevant to Health Maintenance Results * Due to [place] state law, this organization might not be sharing sensitive test results. * Chlamydia and Gonorrhoea, Amplified (07/27/2022 11:24 AM EST) Chlamydia Trachomatis, DNA Probe NEGATIVE (NEG) [facility] Comment: No Chlamydia Trachomatis RNA detected in this patient's sample (REFERENCE RANGE/NORMAL VALUE: NOT DETECTED) Note: This test uses white hat hacker- mediated amplification method to detect rRNA from C. Trachomatis URINE GC AMP PROBE NEGATIVE (NEG) [facility] Comment: No Neisseria Gonorrhoeae RNA detected in this patient's sample (REFERENCE RANGE/NORMAL VALUE: NOT DETECTED) NOTE: This test uses white hat hacker-mediated amplification method to detect rRNA from N.Gonorrhoeae. A negative result does not preclude infection. In the case of a negative urine result, testing of an endocervical(female) or urethral (male) specimen is recommended if there is high clinical suspicion of infection. Due to very high sensitivity of Nucleic Acid Amplification Test, false positive results may occur. Therefore, specimen handling is extremely important. In patients in whom the disease is unlikely, additional sample for testing should be considered after an initial positive result. The performance characteristics of this test have not been evaluated in children. The Aptima Combo2 assay is not intended for the evaluation of suspected sexual abuse or for other medico-legal indications. The ordering provider should assess if the patient had consensual sex without risk of sexual abuse. Consult the [facility] if needed. Contact phone number . Therapeutic failure or success cannot be determined with the Aptima Combo2 assay since nucleic acid may persist following appropriate antimicrobial therapy. The Centers for Disease Control and Prevention (CDC) recommends confirmatory retesting using culture or a different nucleic acid amplification test when positive results occur, if indicated. Testing performed or reported by [facility], a Service of [facility], [address] [address] Сергей Rubio MD, Auto Body Painter [facility]# [id number] Urine (Urine) 07/27/2022 11: 24 AM EST 07/27/2022 4:10 PM EST us Karon Reese MD LAB MICROBIOLOGY - GENERAL ORDERABLES Final Result PAWAN from Last 3 Months or Most Recently Relevant to Health Maintenance [place] [address] [place] [address] NON PCC
--- OUTSIDE RECORDS SUMMARY | 2025-03-06 12:32 | XMS_ITS | Data Portability ---
Author Organization [facility] Address [address] [place] [address] Assessment No assessment recorded. Plan of Treatment Reminders Order Date Submit Date Provider Last Modified By Organization Details Last Modified Time Details Appointments None recorded. Lab rapid SARS CoV 2 Ag, QL IA, respiratory specimen 2022 023 [id number], [address] [place] [address], [id number], 3 14:22:39 Referral emergency medicine referral 2022 023 [email or web address] Not available 12:14:54 Procedures None recorded. Surgeries None recorded. Imaging None recorded. Medication Orders None recorded. Patient TargetsNo targets recorded. Patient Instructions Encounter Date Encounter Id Patient Instructions Last Modified By Organization Details Last Modified Time 09/17/2022 [id number] headache: care instructions [email or web address] Not available 09/17/2022 14:22:13 Based on your [...] why my recommendation is the Emergency Room. [email or web address] Not available 09/17/2022 14:20:54 Reason for Referral Emergency Medicine Referral for Headache Referring Physician: Lakesha Huang, Urgent Care, Encounter Date: 09/17/2022 Results Created Date Observation Date Name Description Value Unit Range Abnormal Flag Note LastModifiedBy Organization Detail LastModifiedTime 09/17/19 23 09/17/2022 rapid SARS CoV 2 Ag, QL IA, respi rator y speci men Unknown Analyte Normal =Negat trish Not Available [address] [place] [address], [phone], 09/17/2022 14:22:27 09/17/19 23 09/17/2022 rapid SARS CoV 2 Ag, QL IA, respi rator y speci men Unknown Analyte negati ve Not Available [address] [place] [address], [phone], 09/17/2022 14:22:27 Result Notes None recorded. Problems [...] saturation in Arterial blood by Pulse oximetry Pain severity - 0-10 verbal numeric rating [Score] - Reported Heart rate Respiratory rate Body temperature Systolic And Diastolic Provider Name and Address Organization Details Last Updated DateTime 3 154.94 cm 24.6 kg/m2 03004.0 1 g 100 % 100 % 6 61 /min 20 /min 97.8 [degF] 119/85 mm[Hg] Shadia Montaño PA - [facility] 3 13:37:40 Social History Question Answer Notes LastModified by Organizat ion Details LastModified Time Tobacco Smoking Status Never Smoker Shadia Montaño null, PA - [facility] 09/17/2022 13:34:12 Have You Had Direct Contact, Or Contact During Intimacy, With Monkeypox Rash, Scabs, Or Body Fluids From A Person With Monkeypox? No Information not available 09/17/2022 Have You Recently Traveled Abroad? No Information not available 09/17/2022 Sex: Unknown Functional Status Question Answer Note LastModified by Organizat ion Details LastModified Time Do you use any illicit or recreational drugs? No Information not available 09/17/2022 Do you or have you ever used any other forms of tobacco or nicotine? No Information not available 09/17/2022 What is your level of alcohol consumption? Occasional Information not available 09/17/2022 Mental Status None recorded. Family History Relationship [...] 13:33:03 meningococcal B, recombinant 2 completed Shadia Smyer null, PA - [facility] 09/17/2022 13:33:03 COVID-19, mRNA, LNP-S, PF, 30 mcg/0.3 mL dose, lisbet-sucrose 2 completed Shadia Smyer null, PA - [facility] 09/17/2022 13:33:03 COVID-19, mRNA, LNP-S, PF, 30 mcg/0.3 mL dose, lisbet-sucrose 2 completed Shadia Danyel null, PA - [facility] 09/17/2022 13:33:03 Hep A, ped/adol, 2 dose 7 completed Shadia Danyel null, PA - [facility] 09/17/2022 13:33:03 Hep A, ped/adol, 2 dose 8 completed Shadia Danyel null, PA - [facility] 09/17/2022 13:33:03 meningococcal MCV4P 2 completed Shadia Danyel null, PA - [facility] 09/17/2022 13:33:03 Influenza, split virus, quadrivalent, PF 8 completed Shadia Smyer null, PA - [facility] 09/17/2022 13:33:03 Influenza, split virus, quadrivalent, PF 9 completed Shadia Smyer null, PA - [facility] 09/17/2022 13:33:03 Past Encounters Encounter ID Performer Location Encounter Start Date Encounter Closed Date Diagnosis/Indication Diagnosis SNOMED-CT Code Diagnosis ICD10 Code Diagnosis Note [id number] [address] [place] [address] 10/01/2021 16:55:37 10/01/2021 19:11:26 [id number] [address] [place] [address] 11/15/2021 17:46:33 11/15/2021 19:10:40 [id number] [address] [place] [address] 12/30/2021 17:46:54 12/30/2021 19:06:34 [id number] [address] [place] [address] 04/20/2022 17:23:04 04/20/2022 20:00:29 [id number] BEE THOMPSON [address] [place] [address] 09/17/2022 12:00:11 09/17/2022 14:25:35 Headache 16439137 R51.9 Worse Headache of [employer] [facility]. Health Concerns Section Related Observation LastModified by Organization Detai ls LastModified Time None Recorded Concern Status LastModified by Organization Details LastModified Time None Recorded Advance Directives Directive None Recorded Payers Insurance Date Sequence Insurance Name Policy Number Policy Fontenot Covered Member ID Fontenot Member ID Guarantor Name 09/17/2022 1 [facility] [employer] - TOGETHER (MEDICAID HMO) [id number] Анна E Charlie [id number] Анна Charlie Notes Date Note Type Note Provider Name and Address Organization Details Recorded Time 09/17/2022 text/html Headache UCRepor elizabeth by PatientHPIFor quality, patient reportsworst headache ever. For associated symptoms, patient reportssleep disturbancesbut reportsno vomiting. For source of patient information, patient reportspatient arrived at urgent care ambulatoryandpatient. For location, patient reportsorbital,unilat eral, andfrontal. For severity, patient reportssevere. For onset/timing, patient reportsgradual. For context, patient reportsnot related to trauma. For alleviating factors, patient reportsotc medication.The patient reports for the last 2 weeks [...] has resolved. No fevers. BEE THOMPSON [address], [place], [address], PA - [facility] 09/17/2022 14:24:49 OBGyn Episode No OBEpisode recorded.
--- OUTSIDE RECORDS SUMMARY | 2025-03-06 12:32 | XMS_ITS | Encounter Summary ---
Author Organization [employer] Address [address] [place] [address] Care Team Providers Care Subway Train Driver Name Role Phone Santa Bazzi MD Primary Care Pro vider Reason for Visit * Reason Onset Date Comments New Patient 05/26/2023 Encounter Details Date Type Department Care Team ([facility] st Contact Info) Description 05/26/2023 Telephone [facility] [address] [place], [place] [phone] Rahul Moreno MD [address] [place] [address] New Patient Social History Tobacco Use Types Packs/Day Years Used Date Smoking Tobacco: Never Passive Smoke Exposure: Never Smokeless Tobacco: Never Alcohol Use Standard Drinks/Week Comments Not Currently 0 (1 standard drink = 0.6 oz pur e alcohol) Occasionally Depression Answer Date Recorded Patient Health Questionnaire-9 Score 0 02/13/2023 Housing Stability Answer Date Recorded What is your housing situation today? I have loganjaimee nascimento 05/22/[address] you li ve. Do you have problems with any of the following? None of the above 05/22/2023 Food Insecurity Answer Date Recorded Within the past 12 months, y ou worried that your food would run out before you got money to buy more: Never True 05/22/2023 Within the past 12 months,th e food you bought just didn't last and you didn't have enough money to get more: Never True 04/2023 Transportation Answer Date Recorded In the past 12 months, has l ack of transportation kept you from medical appts, meetings, work or from getting things needed for daily living? No 05/22/2023 Utilities Answer Date Recorded In the past 12 months, has t he electric, gas, oil or water company threatened to shut off services in your home? 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 EFFECTIVE SINCE 05/26/2023 documented in this encounter Plan of Treatment Upcoming Encounters Date Type Department Care Team (Late st Contact Info) Description 07/01/2025 5:00 PM EST Office Visit [facility] [address], [place] [phone] Anna Simmons [address] [place], [place] [phone] documented as of this encounter Visit Diagnoses Not on filedocumented in this encounter Additional Health Concerns Assessment Noted Time PHQ-9 Depression Total Score: 0 02/14/20 23 1:36 PM EDT documented as of this encounter Care Teams Subway Train Driver Relationship Specialty Start Date End Date Santa Bazzi MD [address] [place] [address] [phone] PCP - General Internal Medicine 03/29/24 documented as of this encounter
--- OUTSIDE RECORDS SUMMARY | 2025-03-06 12:32 | XMS_ITS | Clinical Summary ---
Author Organization [facility] Address [address] [facility] [address] [place] [address] Phone Care Team Providers Care Veneer Jointer Returner Name Role Phone [facility] Primary Care Provider Unavailable Allergies No known active allergies Medications No known medications Social History Tobacco Use Types Packs/Day Years Used Date Smoking Tobacco: Never Assessed Education Answer Date Recorded Are you interested in more education? Not on abigail e 05/29/2023 Are you concerned about learning? Not on file 05/29/2023 No 05/29/2023 No 05/29/2023 Digital Access Answer Date Recorded No 05/29/2023 No 05/29/2023 Reliable internet access at home? Not on file 05/29/2023 Device with a working camera? Not on file Intimate Partner Violence Answer Date R ecorded Are you denied basic needs s uch as food, clothing, or medical care? No 08/02/2023 In the past 12 months have y ou been in a relationship with a person who hurts, threatens, or tries to control you? No 08/02/2023 Are you denied basic needs s uch as food, clothing, or medical care? No 08/02/2023 In the past 12 months have y ou been in a relationship with a person who hurts, threatens, or tries to control you? No 08/02/2023 Comments Unknown Sex and Gender Information Value Date Recorded Sex Assigned at Not on file Legal Sex Female 10:04 AM EDT Gender Identity Not on file Sexual Orientation Not on file Last Filed Vital Signs Vital Sign Reading Time Taken Comments Blood Pressure 108/72 08/03/2023 1:00 AM EST Pulse 72 08/03/2023 1:00 AM EST Temperature 36.6 C (97.9 F) 08/03/2023 1:00 AM EST Respiratory Rate 16 08/03/2023 1:00 AM EST Oxygen Saturation 98% 08/03/2023 1:00 AM EST Inhaled Oxygen Concentration - - Weight 59 kg (130 lb) 08/02/2023 7:42 PM EST Height 157.5 cm (5' 2 ) 08/02/2023 7:42 PM EST Body Mass Index 23.78 08/02/2023 7:42 PM EST Plan of Treatment Health Maintenance Due Date Last Done Comments DEPRESSION SCREENING 2013 SMOKING Hx and SMOKELESS TOB ACCO SCREENING 2014 HPV VACCINES (1 - 3-dose series) 2016 CHLAMYDIA SCREENING 2017 MENINGOCOCCAL VACCINES (B) ( 1 of 2 - Standard) 2017 HEPATITIS C SCREENING 2019 HIV ONE-TIME SCREENING (18-6 5 YEARS) 2019 PAP SMEAR 2022 COVID-19 VACCINE ( - 2023-2 5 season) 2024 Adult Td,Tdap Booster 09/24/2024 09/24/2014 HEPATITIS A VACCINES Aged Out No long er eligible based on patient's age to complete this topic HIB VACCINES Aged Out No longer eligi ble based on patient's age to complete this topic MENINGOCOCCAL VACCINES (ACWY) Aged Out No longer eligible based on patient's age to complete this topic PNEUMOCOCCAL VACCINES (0-49 years) Aged Out No longer eligible based on patient's age to complete this topic Medical Devices Not on file Insurance [facility] [employer] C3 ACO [facility] C3 ACO Care Teams Veneer Jointer Returner Relationship Specialty Start Date End Date [facility] - General 05/29/23 Additional Source Comments The information contained in this document represents components of the legal health record. It is not the complete legal health record.[facility]
--- OUTSIDE RECORDS SUMMARY | 2025-03-06 12:32 | XMS_ITS | Clinical Summary ---
Author Organization [facility] Address [address] [place] [address] Phone Care Team Providers Care Cooker Sulfite Name Role Phone Karon Reese MD Primary Care Provider [phone] Allergies No known active allergies Medications oxyCODONE (OXY-IR) 5 mg immediate release capsule Take 1 capsule (5 mg total) by mouth every 6 (six) hours if needed for severe pain. Max Daily Amount: 20 mg 15 capsule 01/20/2025 Active Encounters Date Type Department Care Team Description 01/20/2025 9:58 AM EDT - 01/20/2025 12:19 PM EDT Emergency [facility] Emergency [address] [place] [address] Pain, dental (Primary Dx) Discharge Disposition: Home or Self Care from Last 3 Months Surgical History Surgery Date Site/Laterality Comments WISDOM TOOTH EXTRACTION PROCEDURE: HISTORICAL WISDOM TEETH EXTRACTION Medical History Medical History Date Comments Patient denies medical problems DX:Patient denies medical problems Family History Medical History Relation Name Comments ALS Maternal Grandfather Heart attack Maternal Grandmother Cirrhosis Mother Parkinson's Disease Paternal Grandmother Relation Name Status Comments Father Alive Maternal Grandfather Alive Maternal Grandmother Mother Alive Paternal Grandfather Alive Paternal Grandmother Alive Social History Tobacco Use Types Packs/Day Years Used Date Smoking Tobacco: Never Smokeless Tobacco: Never Alcohol Use Standard Drinks/Week Comments Not Currently 0 (1 standard drink = 0.6 oz pur e alcohol) Comments Unknown Sex and Gender Information Value Date Recorded Sex Assigned at Not on file Legal Sex Female 5:02 AM EST Gender Identity Not on file Sexual Orientation Not on file Obstetrics History Last Filed Vital Signs Vital Sign Reading Time Taken Comments Blood Pressure 123/91 01/20/2025 9:10 AM EDT Pulse 96 01/20/2025 9:10 AM EDT Temperature 37.2 C (99 F) 01/20/2025 9:10 AM EDT Respiratory Rate 16 01/20/2025 9:10 AM EDT Oxygen Saturation 100% 01/20/2025 9:10 AM EDT Inhaled Oxygen Concentration - - Weight 51.7 kg (114 lb) 01/20/2025 9:10 AM EDT Height 157.5 cm (5' 2 ) 01/20/2025 9:10 AM EDT Body Mass Index 20.85 01/20/2025 9:10 AM EDT Plan of Treatment Health Maintenance Due Date Last Done Comments HPV Vaccines (1 - 3-dose series) 2016 HIV Screening 07/24/2022 Social Influencers of Health Screening 07/24/2022 Meningococcal B Vaccine (2 of 2 - Trumenba SCDM 2-dose series) 01/25/2023 07/27/2022 COVID-19 Vaccine (3 - season) 2024 10/10/2021, 09/19/2021 Depression Screening 08/14/2024 DTaP,Tdap,and Td Vaccines (7 - Td or Tdap) 09/24/2024 09/24/2014, 10/12/2005, 10/17/2002, Additional history exists Gonorrhea/Chlamydia Screening 03/14/2025 03/14/2024 Influenza Vaccine (#1) 2025 9, 04/24/2018, 07/22/2015, Additional history exists Cervical Cancer Screening: Pap Smear 06/17/2027 06/17/2024 HIB Vaccines Aged Out 2001 No longer eligi ble based on patient's age to complete this topic Pneumococcal Vaccine: Pediatrics (0 to 5 Years) and At-Risk Patients (6 to 49 Years) Aged Out 2001, 2001, 2001 No longer eligible based on patient's age to complete this topic Hepatitis B Vaccines Completed 10/17/2002, 2001, 2001 IPV Vaccines Completed 10/12/2005, 10/13, 2001, Additional history exists MMR Vaccines Completed 10/12/2005, 05/07/2002 Varicella Vaccines Completed 12/01/2006, 05/07/2002 Hepatitis A Vaccines Completed 04/24/2018, 01/25/20 17 Meningococcal ACWY Vaccine Aged Out 07/27/2022, No longer eligible based on patient's age to complete this topic Hepatitis C Screening Completed 02/13/2023 RSV Immunization Patients Under 20 months Aged Out No longer eligible based on patient's age to complete this topic Procedures Procedure Name Priority Date/Time Associated Diagnosis Comments CBC WITH AUTO DIFFERENTIAL STAT 01/20/2025 9:33 AM EDT COMPREHENSIVE METABOLIC PANEL STAT 01/20/2025 9:33 AM EDT CBC AND DIFFERENTIAL STAT 01/20/2025 9:33 AM EDT from Last 3 Months Results * (ABNORMAL) CBC auto differential (01/20/2025 9:33 AM EDT) WBC 7.3 4.8 - 10.8 K/mcL LAB HEMETOLOGY METHOD 01/20/2025 11:05 AM [facility] RBC 4.70 3.80 - 4.80 M/mcL LAB HEMETOLOGY METHOD 01/20/2025 11:05 AM [facility] Hemoglobin 12.5 11.5 - 16.0 g/dL LAB HEMETOLOGY METHOD 01/20/2025 11:05 AM [facility] Hematocrit 39.8 35.0 - 47.0 % LAB HEMETOLOGY METHOD 01/20/2025 11:05 AM [facility] MCV 85.2 79.0 - 98.0 FL LAB HEMETOLOGY METHOD 01/20/2025 11:05 AM [facility] MCH 26.8(L) 27.0 - 32.0 pcg LAB HEMETOLOGY METHOD 01/20/2025 11:05 AM [facility] MCHC 31.4(L) 32.0 - 37.0 g/dL LAB HEMETOLOGY METHOD 01/20/2025 11:05 AM [facility] RDW 13.0 11.0 - 15.0 % LAB HEMETOLOGY METHOD 01/20/2025 11:05 AM [facility] Platelets 327 130 - 400 K/mcL LAB HEMETOLOGY METHOD 01/20/2025 11:05 AM [facility] MPV 10.1 7.0 - 11.0 FL LAB HEMETOLOGY METHOD 01/20/2025 11:05 AM [facility] NRBC 0.0 <1.0 % LAB HEMETOLOGY METHOD 01/20/2025 11:05 AM [facility] NRBC Absolute 0.00 <0.10 K/mcL LAB HEMETOLOGY METHOD 01/20/2025 11:05 AM [facility] Neutrophils Relative 74.8 % LAB HEMETOLOGY METHOD 01/20/2025 11:05 AM [facility] Lymphocytes Relative 12.1 % LAB HEMETOLOGY METHOD 01/20/2025 11:05 AM [facility] Monocytes Relative 9.8 % LAB HEMETOLOGY METHOD 01/20/2025 11:05 AM [facility] Eosinophils Relative 2.2 % LAB HEMETOLOGY METHOD 01/20/2025 11:05 AM [facility] Basophils Relative 0.7 % LAB HEMETOLOGY METHOD 01/20/2025 11:05 AM [facility] Immature Granulocytes Relative 0.4 % LAB HEMETOLOGY METHOD 01/20/2025 11:05 AM [facility] Neutrophils Absolute 5.43 1.50 - 7.00 K/mcL LAB HEMETOLOGY METHOD 01/20/2025 11:05 AM EDT [facility] Lymphocytes Absolute 0.88(L) 1.00 - 5.00 K/[facility] LAB HEMETOLOGY METHOD [facility]/20[facility] Monocytes Absolute 0.71 0.20 - 1.00 K/[facility] LAB HEMETOLOGY METHOD 01/20/2025 11:05 AM EDT [facility] Eosinophils Absolute 0.16 0.00 - 0.50 K/[facility] LAB HEMETOLOGY METHOD 01/20/2025 [facility] Basophils Absolute 0.05 0.00 - 0.20 K/[facility] LAB HEMETOLOGY METHOD 01/20/2025 11:05 AM [facility] Immature Granulocytes Absolute 0.03 0.00 - 0.03 K/[facility] LAB HEMETOLOGY METHOD 01/20/2025 11:05 AM [facility] Blood Venous blood specimen / Unknown Venipuncture / Unknown 01/20/2025 9:33 AM EDT 01/20/2025 10:16 AM EDT us Rakesh Torres MD LAB BLOOD ORDERABLES Final R esult [facility] [address] [place] [address], * (ABNORMAL) Comprehensive metabolic panel (01/20/2025 9:33 AM EDT) Sodium 136 133 - 145 mmol/L LAB CHEMISTRY METHOD 01/20/2025 10:48 AM [facility] Potassium 5.6(H) 3.5 - 5.5 mmol/L LAB CHEMISTRY METHOD 01/20/2025 10:48 AM [facility] Chloride 107 96 - 110 mmol/L LAB CHEMISTRY METHOD 01/20/2025 10:48 AM T [facility] CO2 23 21 - 32 mmol/L LAB CHEMISTRY METHOD 01/20/2025 10:48 AM [facility] Anion Gap 6 3 - 11 LAB CHEMISTRY METHOD 01/20/2025 10:48 AM [facility] Glucose 74 70 - 100 mg/dL LAB CHEMISTRY METHOD 01/20/2025 10:48 AM [facility] BUN 13 5 - 25 mg/dL LAB CHEMISTRY METHOD 01/20/2025 10:48 AM [facility] Creatinine 0.78 0.50 - 1.10 mg/dL LAB CHEMISTRY METHOD 01/20/2025 10:48 AM [facility] eGFR 110 >=60 mL/min/1. 73m2 LAB CHEMISTRY METHOD 01/20/2025 10:48 AM [facility] Comment:Calculation based on the Chronic Kidney Disease Epidemiology Collaboration (CKD-EPI) equation refit without adjustment for race. BUN/Creatinine Ratio 16.7 LAB CHEMISTRY METHOD 01/20/2025 10:48 AM [facility] Calcium 9.7 8.5 - 10.5 mg/dL LAB CHEMISTRY METHOD 01/20/2025 10:48 AM [facility] AST (SGOT) 19 10 - 42 unit/L LAB CHEMISTRY METHOD 01/20/2025 10:48 AM [facility] ALT (SGPT) 17 10 - 60 unit/L LAB CHEMISTRY METHOD 01/20/2025 10:48 AM [facility] Alkaline Phosphatase 69 42 - 121 unit/L LAB CHEMISTRY METHOD 01/20/2025 10:48 AM [facility] Total Protein 7.3 6.0 - 8.0 g/dL LAB CHEMISTRY METHOD 01/20/2025 10:48 AM [facility] Albumin 4.2 3.2 - 5.0 g/dL LAB CHEMISTRY METHOD 01/20/2025 10:48 AM [facility] Total Bilirubin 0.4 0.0 - 1.4 mg/dL LAB CHEMISTRY METHOD 01/20/2025 10:48 AM EDT [facility] Blood Venous blood specimen / Unknown Venipuncture / Unknown 01/20/2025 9:33 AM EDT 01/20/2025 10:16 AM EDT us Rakesh Torres MD LAB BLOOD ORDERABLES Final R esult [facility] [address] [place] [address], [place] [phone] from Last [address] [id number] [facility] Care Teams Cooker Sulfite Relationship Specialty Start Date End Date Karon Reese MD [address] [place] [address] PCP - General Pediatrics 11/02/21
[2025-03-06 15:08] VITALS: BP 108/70; PULSE 71; RESP 16; TEMP 36.8; O2SAT 100
[2025-03-06 15:15] VITALS: BP 108/70; PULSE 71; RESP 16; TEMP 36.8; O2SAT 100
== END 2025-03-06 15:15 | disposition home or self-care (01) ==
PROVIDERS: Emergency Provider Emergency Medicine; PCP Student in an Organized Health Care Education/Training Program
DX: R51.9 Headache, unspecified (principal); W22.8XXA Striking against or struck by other objects, initial encounter; Y93.89 Activity, other specified; Y92.69 Other specified industrial and construction area as the place of occurrence of the external cause; Y99.8 Other external cause status
CPT/HCPCS: 99283; 99284

== ENCOUNTER 2025-05-13 18:17 | Outpatient (REF) | payer OTHER, SELFPAY ==
--- OUTSIDE RECORDS SUMMARY | 2025-05-13 15:00 | XMS_ITS | Encounter Summary ---
Author Organization [employer] Address [address] [facility] [address] [place] [address] Care Team Providers Care Egg Factory Worker Name Role Phone Santa Bazzi MD Primary Care Pro vider Reason for Visit * Reason Comments Sore Throat Encounter Details Date Type Department Care Team ([facility] st Contact Info) Description 05/13/2025 3:00 PM EDT Office Visit [facility] [address] [place], [place] [phone] Rahul Moreno MD [address] [place] [address] Pharyngitis, unspecified etiology Social History Tobacco Use Types Packs/Day Years Used Date Smoking Tobacco: Never Passive Smoke Exposure: Never Smokeless Tobacco: Never Alcohol Use Standard Drinks/Week Comments Yes 0 (1 standard drink = 0.6 oz pur e alcohol) Occasionally Depression Answer Date Recorded Patient Health Questionnaire-9 Score 0 03/29/2024 Patient Health Questionnaire-9 Score 0 03/29/2024 Last PHQ-9: Questionnaire Data Not on file 0 03/29/2024 Housing Stability Answer Date Recorded What is your housing situation today? I have logan nascimento 03/29/[address] you li ve. Do you have problems with any of the following? None of the above 03/29/2024 Food Insecurity Answer Date Recorded Within the past 12 months, y ou worried that your food would run out before you got money to buy more: Never True 03/19/2024 Within the past 12 months,th e food you bought just didn't last and you didn't have enough money to get more: Never True 01/2024 Transportation Answer Date Recorded In the past 12 months, has l ack of transportation kept you from medical appts, meetings, work or from getting things needed for daily living? No 03/19/2024 Utilities Answer Date Recorded In the past 12 months, has t he electric, gas, oil or water company threatened to shut off services in your home? No 03/19/2024 Depression Answer Date Recorded Patient Health Questionnaire-2 Score 0 03/29/2024 Internet Access Answer Date Recorded Internet Access Q1 Yes 04/15/2024 Internet Access Q2 Not on file 04/15/2024 Comments Unknown Sex and Gender Information Value Date Recorded Sex Assigned at Female 01/02/2023 1:20 PM EDT Legal Sex Female 1:53 PM EDT Gender Identity Female 01/02/2023 1:20 PM EDT Sexual Orientation Straight 01/02/2023 1: 20 PM EDT documented as of this encounter Last Filed Vital Signs Vital Sign Reading Time Taken Comments Blood Pressure 113/72 05/13/2025 3:13 PM EDT Pulse 83 05/13/2025 3:13 PM EDT Temperature 37.1 C (98.8 F) 05/13/2025 3:13 PM EDT Respiratory Rate 22 05/13/2025 3:13 PM EDT Oxygen Saturation 100% 05/13/2025 3:13 PM EDT Inhaled Oxygen Concentration - - Weight 55.5 kg (122 lb 6.4 oz) 05/13/2025 3:13 P M EDT Height 157.5 cm (5' 2 ) 05/13/2025 3:13 PM EDT Body Mass Index 22.39 05/13/2025 3:13 PM EDT documented in this encounter Progress Notes * Rahul Goncalves MD - 05/13/2025 3:00 PM EDT SUBJECTIVE Анна Guerra is a 25 y.o. female who presents for Sore Throat. Анна Guerra, 25 years Acute Upper Respiratory Symptoms - Woke up today with sore throat - Chills developed at work today - Headache present since this morning - Mild cough reported - Throat pain with swallowing - Denies earache - History of sinus pressure years ago, not currently present Menstrual History - Last menstrual period at beginning of April 2025 - Next expected period on Friday, April 18, 2025 HPI Review of Systems Allergies[1] OBJECTIVE Vitals: 05/13/25 1513 BP: 113/72 BP Location: Left arm Patient Position: Sitting BP Cuff Size: Adult Pulse: 83 Resp: 22 Temp: 98.8 ??F (37.1 ??C) TempSrc: Oral SpO2: 100% Weight: 122 lb 6.4 oz (55.5 kg) Height: 5' 2 (1.575 m) Physical Exam Assessment/Plan Sore throat: - Likely due to a viral upper respiratory infection. Throat examination suggests it may be related to allergies rather than an infection like strep throat. - Recommended lozenges for throat soothing. Suggested antihistamines if congestion is present. Advised acetaminophen for chills, headache, or fever. Encouraged increased fluid intake. Provided excusefor absence from work for today and tomorrow. Throat culture sent for further analysis. Problem List Items Addressed This Visit Pharyngitis Exam: wnl Neg Covid, Flu and Strep - Likely due to a viral upper respiratory infection. - Recommended lozenges for throat soothing. Suggested antihistamines if congestion is present. Advised acetaminophen for chills, headache, or fever. Encouraged increased fluid intake. Provided excusefor absence from work for today and tomorrow. Throat culture sent for further analysis. Relevant Medications benzocaine-menthol (Chloraseptic) 6-10 MG lozenge acetaminophen (Tylenol Extra Strength) 500 MG tablet cetirizine (ZyrTEC) 10 MG tablet Other Relevant Orders POCT Rapid Covid-19 BinaxNOW (Completed) POCT Rapid Influenza A CRUZ ID NOW (Completed) POCT Rapid Influenza B CRUZ ID NOW (Completed) POCT Rapid Strep A CRUZ ID NOW (Completed) Culture, Throat This note was drafted using Ambient (AI) technology. The patient/patient's guardian has been informed and has consented to the use of this technology: Yes Future Appointments Date Time Provider Department Center 07/01/2025 5:00 PM Anna HAYES [facility] [1] Allergies Allergen Reactions Food Anaphylaxis apples, cherries Avocado Fruit Extracts [place] Pulp Peanut Butter Flavoring Agent (Non-Screening) documented in this encounter Miscellaneous Notes * Assessment & Plan Note - Rahul Goncalves MD - 05/13/2025 3:42 PM EDT Associated Problem(s): Pharyngitis Exam: wnl Neg Covid, Flu and Strep - Likely due to a viral upper respiratory infection. - Recommended lozenges for throat soothing. Suggested antihistamines if congestion is present. Advised acetaminophen for chills, headache, or fever. Encouraged increased fluid intake. Provided excusefor absence from work for today and tomorrow. Throat culture sent for further analysis. documented in this encounter Plan of Treatment Upcoming Encounters Date Type Department Care Team (Late st Contact Info) Description 07/01/2025 5:00 PM EST Office Visit [facility] [address] [place] [address] [phone] Anna Simmons [address] [place] [phone] Scheduled Orders Name Type Priority Associated Diagnoses Orde r Schedule Culture, Throat Microbiology Routine Pharyngitis, unspecified etiology Ordered: 05/13/2025 documented as of this encounter Procedures Procedure Name Priority Date/Time Associated Diagnosis Comments POCT INFLUENZA B (ID NOW RAPID MOLECULAR) Routine 05/13/2025 3:21 PM EDT Pharyngitis, unspecified etiology POCT INFLUENZA A (ID NOW RAPID MOLECULAR) Routine 05/13/2025 3:21 PM EDT Pharyngitis, unspecified etiology POC CRUZ ID NOW STREP A Routine 05/13/2025 3:19 PM EDT Pharyngitis, unspecified etiology POCT RAPID COVID ANTIGEN Routine 05/13/2025 3:17 PM EDT Pharyngitis, unspecified etiology documented in this encounter Results * POCT Rapid Influenza B CRUZ ID NOW (05/13/2025 3:21 PM EDT) [facility] Influenza B Negative Negative, Indeterminate [facility] QC Media Lot # [id number] [facility] Lot# Expiration Date [facility] Swab 05/13/2025 3:21 PM EDT Rahul Goncalves MD POINT OF CARE TEST EN TER/EDIT ORDERABLES Final Result Performing Organization Address City/[facility]/ZIP Co de Phone Number [facility] [address] [place] [phone] * POCT Rapid Influenza A CRUZ ID NOW (05/13/2025 3:21 PM EDT) [facility] Influenza A Negative Negative, Indeterminate [facility] QC Media Lot # [id number] [facility] Lot# Expiration Date [facility] Swab 05/13/2025 3:21 PM EDT Rahul Goncalves MD POINT OF CARE TEST EN TER/EDIT ORDERABLES Final Result Performing Organization Address [facility] Co de Phone Number [facility] [address] [place] [phone] * POCT Rapid Strep A CRUZ ID NOW (05/13/2025 3:19 PM EDT) [facility] Rapid Strep A Screen Negative Negative, None Detected QC Media Lot # [id number] Lot# Expiration Date Swab 05/13/2025 3:19 PM EDT Rahul Goncalves MD POINT OF CARE TEST EN TER/EDIT ORDERABLES Final Result * POCT Rapid Covid-19 BinaxNOW (05/13/2025 3:17 PM EDT) [facility] Rapid COVID Ag Negative QC Media Lot # [id number] Lot# Expiration Date 8,326 Swab 05/13/2025 3:17 PM EDT Rahul Goncalves MD POINT OF CARE TEST EN TER/EDIT ORDERABLES Final Result documented in this encounter Visit Diagnoses Diagnosis Pharyngitis, unspecified etiology documented in this encounter Additional Health Concerns Assessment Noted Time PHQ-9 Depression Total Score: 0 03/29/20 10:48 AM EDT documented as of this encounter Care Teams Egg Factory Worker Relationship Specialty Start Date End Date Santa Bazzi MD [address] [place] [phone] PCP - General Internal Medicine 03/29/24 documented as of this encounter
--- OUTSIDE RECORDS SUMMARY | 2025-05-13 18:20 | XMS_ITS | Clinical Summary ---
Author Organization [facility] Address [address] [facility] [address] [place] [phone] Phone Care Team Providers Care Bone Drier Name Role Phone [place] [facility] Primary Care Provider Unavailable Allergies No known [...] - 3-dose series) 2016 CHLAMYDIA SCREENING 2017 HEPATITIS C SCREENING 2019 HIV ONE-TIME SCREENING (18-6 5 YEARS) 2019 PAP SMEAR 2022 Adult Td,Tdap Booster 09/24/2024 09/24/2014 INFLUENZA VACCINE (#1) 2025 COVID-19 VACCINE ( - 2023-2 5 season) 2025 HEPATITIS A VACCINES Aged Out No long er eligible based on patient's age to complete this topic HIB VACCINES Aged Out No longer eligi ble based on patient's age to complete this topic MENINGOCOCCAL VACCINES (ACWY) Aged Out No longer eligible based on patient's age to complete this topic MENINGOCOCCAL VACCINES (B) Aged Out N o longer eligible based on patient's age to complete this topic PNEUMOCOCCAL VACCINES (0-49 years) Aged Out No longer eligible based on patient's age to complete this topic Medical Devices Not on file Insurance [facility] C[employer] [facility] ACO Care Teams Bone Drier Relationship Specialty Start Date End Date Itz Issa MD PCP - General 05/29/23 Additional Source Comments The information contained in this document represents components of the legal health record. It is not the complete legal health record.[facility]
--- OUTSIDE RECORDS SUMMARY | 2025-05-13 18:20 | XMS_ITS | Encounter Summary ---
Author Organization [employer] Address [address] [place] [address] Care Team Providers Care Brake Tester Name Role Phone Santa Bazzi MD Primary Care Pro vider Encounter Details Date Type Department Care Team (Late st Contact Info) Description 09/03/2024 Orders Only [facility] [address] [place], [place] [phone] Elisa Riddle Social History Tobacco Use Types Packs/Day Years [...] PM EDT documented as of this encounter Plan of Treatment Upcoming Encounters Date Type Department Care Team (Late st Contact Info) Description 07/01/2025 5:00 PM EST Office Visit [facility] [address] [place] [address] [phone] Anna Simmons [address] [place], [place] [phone] documented as of this encounter Procedures Procedure Name Priority Date/Time Associated Diagnosis Comments COLPOSCOPY Routine 07/19/2024 12:00 AM EST documented in this encounter Results * Colposcopy (07/19/2024 12:00 AM EST) us Historical Provider IN CLINIC/BEDSIDE ORDERAB LES Edited Result - Final [facility] [address] [place] [phone] [phone] documented in this encounter Visit Diagnoses Not on filedocumented in this encounter Additional Health Concerns Assessment Noted Time PHQ-9 Depression Total Score: 0 03/29/20 10:48 AM EDT documented as of this encounter Care Teams Brake Tester Relationship Specialty Start Date End Date Santa Bazzi MD [address] [place] [address] PCP - General Internal Medicine 03/29/24 documented as of this encounter
--- OUTSIDE RECORDS SUMMARY | 2025-05-13 18:20 | XMS_ITS | Clinical Summary ---
Author Organization [facility] Address [address] [place] [phone] Phone Care Team Providers Care Cone Machine Feeder Name Role Phone Unavailable Primary Care Provider Unavailabl e Allergies Active Allergy Reactions Criticality Noted Date Comments Avocado Medium 08/24/2021 Food 10/17/2018 apples, cherries Fruit Extracts Medium 08/24/2021 Peanut Butter Flavoring Agen t (Non-Screening) 07/27/2022 [place] Pulp Medium 08/24/2021 Medications ibuprofen 800 MG [...] allergies 10/15/2020 Overview (10/15/2020): Advised appt with [place]ble[place] Machine Tender to further evaluate Pt to call herself [...] - Trumenba SCDM 2-dose series) 01/25/2023 07/27/2022 DTaP,Tdap,and Td Vaccines (7 - Td or Tdap) 09/24/2024 09/24/2014, 10/12/2005, 10/17/2002, Additional history exists Influenza Vaccines (#1) 2025 07/24/20 19, 04/24/2018, 07/22/2015, Additional history exists COVID-19 Vaccine ( season) 2025 10/10/2021, 09/19/2021 HIB Vaccines Aged Out 2001 No longer [...] complete this topic Procedures * Due to [place] state law, this organization might not be sharing sensitive test results. Procedure Name Priority Date/Time Associated Diagnosis Comments CHLAMYDIA AND GONORRHEA, AMPLIFIED Routine 07/27/2022 11:24 AM EST Encounter for screening examination for chlamydial infection from Last 3 Months or Most Recently Relevant to Health Maintenance Results * Due to [place] state law, this organization might not be sharing sensitive test results. * Chlamydia and Gonorrhoea, Amplified (07/27/2022 11:24 AM EST) Chlamydia Trachomatis, DNA Probe NEGATIVE (NEG) [facility] Comment: No Chlamydia Trachomatis RNA detected in this patient's sample (REFERENCE RANGE/NORMAL VALUE: NOT DETECTED) Note: This test uses architectural engineering teacher- mediated amplification method to detect rRNA from C. Trachomatis URINE GC AMP PROBE NEGATIVE (NEG) [facility] Comment: No Neisseria Gonorrhoeae RNA detected in this patient's sample (REFERENCE RANGE/NORMAL VALUE: NOT DETECTED) NOTE: This test uses architectural engineering teacher-mediated amplification method to detect rRNA from N.Gonorrhoeae. [...] without risk of sexual abuse. Consult the [facility] if needed. Contact phone number . Therapeutic failure or success cannot be determined with the Aptima Combo2 assay since nucleic acid may persist following appropriate antimicrobial therapy. The Centers for Disease Control and Prevention (CDC) recommends confirmatory retesting using culture or a different nucleic acid amplification test when positive results occur, if indicated. Testing performed or reported by [facility], a Service of [facility], [address] [facility] [place] [address] Сергей Rubio MD, Global Upstream Marketing Manager [facility]# [id number] Urine (Urine) 07/27/2022 11: 24 AM EST 07/27/2022 4:10 PM EST us Karon Reese MD LAB MICROBIOLOGY - GENERAL ORDERABLES Final Result PAWAN from Last 3 Months or Most Recently Relevant to Health Maintenance Insurance [place] [address] NON PCC
--- OUTSIDE RECORDS SUMMARY | 2025-05-13 18:20 | XMS_ITS | Encounter Summary ---
Author Organization [facility] Address [address] [place] [phone] Phone Care Team Providers Care Biological Chemist Name Role Phone Karon Reese MD Primary Care Provider Encounter Details Date Type Department Care Team ([facility] Contact Info) Description 03/30/2017 Conversion Encounter [facility] [address] [place] [address] Social History Tobacco Use Types Packs/Day Years Used Date Smoking Tobacco: Never Comments:Never smoker Comments Unknown Sex and Gender Information Value Date Recorded Sex Assigned at Not on file Legal Sex Female 5:14 PM EDT Gender Identity Female 09/19/2021 7:58 AM EST Sexual Orientation Straight 07/27/2022 10 :51 AM EST documented as of this encounter Plan of Treatment Not on file documented as of this encounter Visit Diagnoses Not on filedocumented in this encounter Care Teams Biological Chemist Relationship Specialty Start Date End Date Karon Reese MD [address] [place] [phone] PCP - General Pediatrics 09/04/20 01/03/23 documented as of this encounter
--- OUTSIDE RECORDS SUMMARY | 2025-05-13 18:20 | XMS_ITS | Encounter Summary ---
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 EFFECTIVE SINCE 05/26/2023 documented in this encounter Plan of Treatment Upcoming Encounters Date Type Department Care Team (Late st Contact Info) Description 07/01/2025 5:00 PM EST Office Visit [facility] [address] [place], [place] [phone] Anna Simmons [address] [place], [place] [phone] documented as of this encounter Visit Diagnoses Not on filedocumented in this encounter Additional Health Concerns Assessment Noted Time PHQ-9 Depression Total Score: 0 02/14/20 23 1:36 PM EDT documented as of this encounter Care Teams Electroencephalograph Technician Relationship Specialty Start Date End Date Santa Bazzi MD [address] [place] [address] [phone] PCP - General Internal Medicine 03/29/24 documented as of this encounter
--- OUTSIDE RECORDS SUMMARY | 2025-05-13 18:20 | XMS_ITS | Clinical Summary ---
Author Organization [employer] Address [address] [facility] 7t [place] [address] Care Team Providers Care Special Investigator Name Role Phone Santa Bazzi MD Primary Care Pro vider Allergies Active Allergy Reactions Criticality Noted Date Comments Avocado Medium 08/24/2021 Food Anaphylaxis High 10/17/2018 apples, cherries Fruit Extracts Medium 08/24/2021 Peanut Butter Flavoring Agen t (Non-Screening) 07/27/2022 [place] Pulp Medium 08/24/2021 Medications albuterol 108 (90 Base) MCG/ACT inhaler Inhale 2 puffs every 4 (four) hours if needed for wheezing. 18 g 3 02/05/20 Active Spacer/Aero-Ho lding Chambers (AeroChamber MV) inhaler Use as instructed 1 each 02/05/20 24 Active Additional Information Patient not taking.Reported on 12/23/2024 Kariva 0.15-0.02/0.01 MG (/) tablet Take 1 tablet by mouth Once per day. 03/14/20 24 Active EPINEPHrine (Epipen) 0.3 MG/0.3ML injection syringe Inject 0.3 mL (0.3 mg) as directed 1 (one) time if needed for anaphylaxis. Inject into upper leg. Call 911 after use. 1 each 1 03/29/20 24 Active SUMAtriptan (Imitrex) 50 MG tabletIndicati ons:Migraine without aura and without status migrainosus, not intractable Take 1 tablet (50 mg) by mouth 1 (one) time if needed for migraine. May repeat dose once in 2 hours if no relief. Do not exceed 2 doses in 24 hours. 10 tablet 09/10/19 Active Additional Information Patient not taking.Reported on 12/23/2024 benzocaine-men thol (Chloraseptic) 6-10 MG lozengeIndicat ions:Pharyngit is, unspecified etiology Dissolve 1 lozenge in the mouth every 2 (two) hours if needed for sore throat. 100 lozenge 05/13/20 25 026 Active acetaminophen (Tylenol Extra Strength) 500 MG tabletIndicati ons:Pharyngiti s, unspecified etiology Take 1 tablet (500 mg) by mouth every 8 (eight) hours if needed for mild pain. 30 tablet 05/13/20 25 Active cetirizine (ZyrTEC) 10 MG tabletIndicati ons:Pharyngiti s, unspecified etiology Take 1 tablet (10 mg) by mouth Once per day. 30 tablet 05/13/20 25 026 Active cetirizine (ZyrTEC) 10 MG tablet Take 1 tablet (10 mg) by mouth Once per day. 30 tablet 11 02/05/20 24 025 Discontinued(R eorder (will not trigger notification to Pharmacy)) Active Problems Problem Noted Date Diagnosed Date Pharyngitis 05/13/2025 Assessment & Plan (05/13/2025 3:42 PM EDT): Exam: wnl Neg Covid, Flu and Strep - Likely due to a viral upper respiratory infection. - Recommended lozenges for throat soothing. Suggested antihistamines if congestion is present. Advised acetaminophen for chills, headache, or fever. Encouraged increased fluid intake. Provided excuse for absence from work for today and tomorrow. Throat culture sent for further analysis. Viral URI 11/13/2024 Assessment & Plan (11/13/2024 3:03 PM EDT): COVID< Flu and Strep negative. No evidence of respiratory distress. Lung exam clear. No evidence of dehydration. -Supportive care advised. -Isolation recommendations discussed. -given work note and instructed pt to call if symptoms prolong and work requires an updated note. Health care maintenance 03/29/2024 Anemia 03/29/2024 Dyspnea 03/29/2024 Elevated liver enzymes 02/13/2023 Overview (02/14/2023): Elevated 01/06/23 and 01/17/23 Mother with cirrhosis r/t NAFLD Assessment & Plan (02/14/2023 11:37 AM EDT): Will check hepatitis panel, hepatic panel again, alpha fetoprotein to screen for HCC and repeat platelet count to obtain Fib4 score Notify results Followup PRN Breakthrough bleeding on OCPs 11/02/2021 Overview (01/02/2023): Last Assessment & Plan: Explained this is likely due to lack of regular use. Can try to set an alarm or switch to another method. She opted for Nexplanon. Given not sexually active, she will stop OCP for now and return in a couple weeks for Nexplanon placement. Pelvic US ordered to evaluate for intracavitary pathology. Last Assessment & Plan: Explained this is likely due to lack of regular use. Can try to set an alarm or switch to another method. She opted for Nexplanon. Given not sexually active, she will stop OCP for now and return in a couple weeks for Nexplanon placement. Pelvic US ordered to evaluate for intracavitary pathology. Multiple food allergies 10/15/2020 Overview (01/02/2023): Advised appt with Jalousies Installer to further evaluate Pt to call herself - list given Dysmenorrhea 07/24/2019 Overview (02/14/2023): She was counseled re: options for management of dysmenorrhea. I reviewed the risks, benefits, and rates of amenorrhea. She was most interested in trying OCP again. She was counseled on correct use and what to do if she misses a pill. She was encouraged to use back up barrier protection for 2 weeks prior to engaging in unprotected intercourse to avoid . She was encouraged to continue to use condoms to prevent STI. She was counseled re: most commonly expected SE including BTB when starting, breast tenderness, and headache. She was counseled re: risk of VTE and encouraged to call with signs or sx. Her history was reviewed and she has no contraindications to estrogen use. She will return for follow up in 3 months. Assessment & Plan (11/02/2023 7:51 PM EDT): -chronic pelvic pain with menstrual periods , and heavy menstrual periods -LMP: 11/02/2023 -contraception: none Pt needs further investigation with chronic dysmenorrhea described as intense for year, will need to consider in differential endometriosis -was referred for TV/pelvic US in 02/2023 Never done ---MA gave info for pt to call for apt -ibuprofen 600 prn for mod to intense pain -zofran prn for nausea when having periods -cbc,iron, ferritin w hx of anemia -referred to BASKET FILLER today -offered today options for hormonal tx as w pills, as well IUD that can help w pain and heavy periods but pt refusing -schedule f up apt to start care w PCP --- Addendum : Received lab results -I called pt today at 5h45 pm and informed : CBC: WBC 13.9, neutrophilis 83.7%, hb 11.9, iron and iron sat are low ferritin normal but borderline low -start iron , vit C daily -px metamucil prn -pt denies any concerning symptoms for infection so possibly elevated WBC and PMNs from stress reaction from pain and vomit today --reorder CBC today and pt will repeat in 2 to 3 weeks to monitor WBC, will need to f anemia w new provider Assessment & Plan (02/14/2023 11:40 AM EDT): No longer taking OCP d/t breakthrough bleeding Still has heavy menses and ARABELLA. Continue Iron supplement every other day w/ orange juice Will order repeat pelvic US d/t hx of ovarian cysts and AUB Followup with PCP as scheduled Resolved Problems Problem Noted Date Diagnosed Date Resolved Date Other constipation 10/15/2020 4 Overview (01/02/2023): Advised increasing water intake, increasing F/V and fiber intake Handouts given Encounters Date Type Department Care Team Description 05/13/2025 3:00 PM EDT Office Visit [facility] [address] [place] [address] Rahul Moreno MD Pharyngitis, unspecified etiology 05/13/2025 Travel 04/03/2025 Telephone [facility] [address] [place] [address] Santa Bazzi MD Appointment from Last 3 Months Immunizations Immunization Administration Dates Next Due DTaP 10/12/2005, 3,2001,09/06,2001 Hep A, ped/adol, 2 dose 04/24/2018,01/24/2017 Hep B, Adolescent or Pediatric 10/17/2002,2001,2001 Hib ([facility]) 2001 IPV 10/12/2005, 2,2001,06/23 Influenza injectable quadriv alent IIV4 with preservative 07/22/2015 Influenza injectable quadriv alent preservative free 07/24/2019,04/24/2018 Influenza live intranasal qu adrivalent LIAV4 06/12/2013 Influenza, live, intranasal 09/05/2012, 1 MMR 10/12/2005,05/07/2002 Meningococcal B, Recombinant 07/27/2022 Meningococcal MCV4P ACYW-135 07/27/2022,09/24/19 15 Pneumococcal Conjugate PCV 7 2001,09/04/19 02,2001 Tdap 09/24/2014 Varicella 12/01/2006,05/07/2002 Family History Medical History Relation Name Comments Diabetes Father's Brother Diabetes Father's Sister Anemia Mother Cirrhosis Mother Diabetes Mother's Brother Esophageal cancer Mother's Brother Diabetes type II Mother's Sister No Known Problems Paternal Grandfather Relation Name Status Comments Father's Brother Father's Sister Mother Mother's Brother Mother's Sister Paternal Grandfather Social History Tobacco Use Types Packs/Day Years Used Date Smoking Tobacco: Never Passive Smoke Exposure: Never Smokeless Tobacco: Never Tobacco Cessation:Counseling Given: Not Answered Alcohol Use Standard Drinks/Week Comments Yes 0 [...] Orientation Straight 01/02/2023 1: 20 PM EDT Last Filed Vital Signs Vital Sign Reading [...] Mass Index 22.39 05/13/2025 3:13 PM EDT Plan of Treatment Upcoming Encounters Date Type Department Care Team (Late st Contact Info) Description 07/01/2025 5:00 PM EST Office Visit [facility] [address] [place] [address] Anna Simmons [address] [place] [address] Health Maintenance Due Date Last Done Comments Dental Oral Exam 2001 Dental X-Ray: Full Mouth 2001 HIV Screening 2001 Disability Screening 2001 Alcohol/Substance Use Screening 2013 Family Planning (PISQ) 2016 HPV Vaccines (1 - 3-dose series) 2016 Meningococcal B Vaccine (2 of 2 - Trumenba SCDM 2-dose series) 01/25/2023 07/27/2022 DTaP/Tdap/Td Vaccines (7 - Td or Tdap) 09/24/2024 09/24/2014, 10/12/2005, 10/17/2002, Additional history exists Dental X-Ray: Bitewings 12/08/2024 12/08/2023 Depression Screening 03/29/2025 03/29/2024, 03/29/20 24 SDOH Screening 03/29/2025 03/29/2024 COVID-19 Vaccine ( - season) 2025 10/10/2021, 09/19/2021 Influenza Vaccine (#1) 2025 9, 04/24/2018, 07/22/2015, Additional history exists Dental Prophylaxis 06/26/2025 12/23/2024 HPV/Cotest 07/19/2025 Pap Smear 07/19/2025 06/17/2024 Tobacco Screening 12/23/2025 12/23/2024 Zoster Vaccines (1 of 2) 2051 RSV Patients and Patients Aged 60 years or older (1 - 1-dose 75+ series) 2076 HIB Vaccines Aged Out 2001 No longer eligi ble based on patient's age to complete this topic Pneumococcal Vaccine: Pediatrics (0 to 5 Years) and At-Risk Patients (6 to 49) Years Aged Out 2001, 2001, 2001 No longer eligible based on patient's age to complete this topic Hepatitis B Vaccines Completed 10/17/2002, 2001, 2001 IPV Vaccines Completed 10/12/2005, 10/13, 2001, Additional history exists Hepatitis A Vaccines Completed 04/24/2018, 01/25/20 17 Meningococcal Vaccine Aged Out 07/27/2022, 015 No longer eligible based on patient's age to complete this topic Hepatitis C Screening Completed 02/13/2023 RSV under 20 months Aged Out No longe r eligible based on patient's age to complete this topic Rotavirus Vaccines Aged Out No longer eligible based on [...] 05/13/2025 3:17 PM EDT Pharyngitis, unspecified etiology PROPHYLAXIS - ADULT Routine 12/23/2024 5 :00 PM EDT PAP SMEAR Routine 06/17/2024 3:02 PM EST BITEWING - SINGLE RADIOGRAPHIC IMAGE Routine 12/08/2023 1:00 PM EDT Symptomatic irreversible pulpitis Clenching of teeth HEPATITIS C AB W/REFL TO HCV RNA, QN, PCR Routine 02/13/2023 2:17 PM EDT Elevated liver enzymes from Last 3 Months or Most Recently Relevant to Health Maintenance Results * POCT Rapid Influenza B CRUZ ID NOW (05/13/2025 3:21 PM EDT) Influenza B Negative Negative, Indeterminate [facility] QC Media Lot # [id number] [facility] Lot# Expiration Date [facility] Swab 05/13/2025 3:21 PM EDT Rahul Goncalves MD POINT OF CARE TEST EN TER/EDIT ORDERABLES Final Result Performing Organization Address [facility]/ZIP Co de Phone Number [facility] [address] [place] [phone] * POCT Rapid Influenza A CRUZ ID NOW (05/13/2025 3:21 PM EDT) [facility] Signature Influenza A Negative Negative, Indeterminate [facility] QC Media Lot # [id number] [facility] Lot# Expiration Date [facility] Swab 05/13/2025 3:21 PM EDT Rahul Goncalves MD POINT OF CARE TEST EN TER/EDIT ORDERABLES Final Result Performing Organization Address City/[facility]/ZIP Co de Phone Number [facility] [address] [place] [phone] * POCT Rapid Strep A CRUZ ID NOW (05/13/2025 3:19 PM EDT) [facility] Rapid Strep A Screen Negative Negative, None Detected QC Media Lot # [id number] Lot# Expiration Date Swab 05/13/2025 3:19 PM EDT us Rahul Goncalves MD POINT OF CARE TEST EN TER/EDIT ORDERABLES Final Result * POCT Rapid Covid-19 BinaxNOW (05/13/2025 3:17 PM EDT) Rapid COVID Ag Negative QC Media Lot # [id number] Lot# Expiration Date Swab 05/13/2025 3:17 PM EDT Rahul Goncalves MD POINT OF CARE TEST EN TER/EDIT ORDERABLES Final Result * Pap Smear (06/17/2024 3:02 PM EST) 06/17/2024 3:02 PM EST 06/18/2024 8:55 AM EST Narrative [facility] - 06/20/2024 4:35 PM EST ----- ------- Name: Анна Guerra Age/Sex: 24/F : 2000 Unit#: [id number] Attend Dr: Radha Vazquez CNM Re06/17/24 Status: DEP REF Location: HO.LNP Disch: ----- ------- SPEC : [id number] RECD: 06/18/24 STATUS: VIMAL NAVA NUM: [id number] SILVIA: 06/17/24-[address]: Radha Vazquez CNM ENTERED: 06/18/24 SP TYPE: Pap Smr OTHR DR: Santa Bazzi MD ORDERED: Pap Smear, PAP path review Interpretation ABNORMAL PAP TEST. Satisfactory for evaluation, low grade squamous intraepithelial lesion cannot exclude high grade squamous intraepithelial lesion. Clinical Information LMP: 06/05/2024 Previous PAP test: No previous pap Material Received ThinPrep-Cervical Copies To: Radha Vazquez CNM [facility] [address] [facility] 3rd [place] [address] Santa Bazzi MD [address] [place] [address] ----- ------- Signed (signature on file) Angelique Mosley MD 06/20/24 1635 ----- ------- END OF REPORT us Generic External Data Provider LAB CYTOLOGY DONOVAN MAYA Final Result [facility] [address] [place] [address] [phone] * Hepatitis C Antibody with Reflex to HCV, RNA, Quantitative, Real-Time PCR (02/13/2023 2:17 PM EDT) Hepatitis C Antibody NON-REACT SAM NON-REACT SAM [facility] Comment: HCV antibody was non-reactive. There is no laboratory evidence of HCV infection. In most cases, no further action is required. However, if recent HCV exposure is suspected, a test for HCV RNA (test code 84348) is suggested. For additional information please refer to http://education.[employer]/faq/RNX56k9 (This link is being provided for informational/ educational purposes only.) Blood Venous blood specimen / Unknown 02/13/2023 2:17 PM EDT 02/13/2023 2:18 PM EDT Deanna Brown GRAPE CUTTER LAB BLOOD ORDERABLES Final Result [facility] [address], [place] [address] [facility] [address] [place] [phone] from Last 3 Months or Most Recently Relevant to Health Maintenance Insurance [facility] DENTAL - HSN FULL (MEDICAID) Care Teams Special Investigator Relationship Specialty Start Date End Date Santa Bazzi MD [address] [place] [address] PCP - General Internal Medicine 03/29/24
--- OUTSIDE RECORDS SUMMARY | 2025-05-13 18:20 | XMS_ITS | Clinical Summary ---
Author Organization [facility] Address [address] [place] [phone] Phone Care Team Providers Care Grease Packer Name Role Phone Karon Reese MD Primary Care Provider [phone] Allergies No known active allergies Medications oxyCODONE (OXY-IR) 5 mg immediate release capsule Take 1 capsule (5 mg total) by mouth every 6 (six) hours if needed for severe pain. Max Daily Amount: 20 mg 15 capsule 01/20/2025 Active Surgical History Surgery Date Site/Laterality Comments WISDOM [...] - Trumenba SCDM 2-dose series) 01/25/2023 07/27/2022 Depression Screening 08/14/2024 DTaP,Tdap,and Td Vaccines (7 - Td or Tdap) 09/24/2024 09/24/2014, 10/12/2005, 10/17/2002, Additional history exists Gonorrhea/Chlamydia Screening 03/14/2025 03/14/2024 COVID-19 Vaccine ( - season) 2025 10/10/2021, 09/19/2021 Influenza Vaccine (#1) 2025 9, 04/24/2018, 07/22/2015, Additional history exists Cervical Cancer Screening: Pap Smear 06/17/2027 06/17/2024 RSV Immunization Adult Patients (1 - 1-dose 75+ series) 2076 HIB [...] on patient's age to complete this topic Insurance [facility] Care Teams Grease Packer Relationship Specialty Start Date End Date Karon Reese MD [address] [place] [address] [place] [phone] PCP - General Pediatrics 11/02/21
--- OUTSIDE RECORDS SUMMARY | 2025-05-13 18:20 | XMS_ITS | Encounter Summary ---
Author Organization [employer] Address [address] [facility] 7t [place] [address] Care Team Providers Care Traffic Engineer Name Role Phone Santa Bazzi MD Primary Care Pro vider Encounter Details Date Type Department Care Team (Latest Contact Info) Description 05/13/2025 Travel Social History Tobacco Use Types Packs/Day Years [...] Description 07/01/2025 5:00 PM EST Office Visit [facility] [address] [place], [place] [phone] Anna Simmons [address] [place], [place] [phone] documented as of this encounter Visit Diagnoses Not on filedocumented in this encounter Additional Health Concerns Assessment Noted Time PHQ-9 Depression Total Score: 0 03/29/20 10:48 AM EDT documented as of this encounter Care Teams Traffic Engineer Relationship Specialty Start Date End Date Santa Bazzi MD [address] [place] [phone] PCP - General Internal Medicine 03/29/24 documented as of this encounter
== END 2025-05-13 18:18 | disposition home or self-care (01) ==
LOC: HO.HHCLNP 18:17
PROVIDERS: Visit Provider Internal Medicine
DX: J20.9 Acute bronchitis, unspecified (principal)
CPT/HCPCS: 87070

== ENCOUNTER 2025-06-24 08:09 | Outpatient (AMB) | payer OTHER, SELFPAY ==
--- OUTSIDE RECORDS SUMMARY | 2025-06-24 08:14 | XMS_ITS | Clinical Summary ---
Author Organization [employer] Address [address] [facility] [facility] 7t [place] [address] Care Team Providers Care Charge Attendant Name Role Phone Santa Bazzi MD Primary Care Pro vider Allergies Active Allergy Reactions Criticality Noted Date Comments Avocado Medium 08/24/2021 Food Anaphylaxis High 10/17/2018 apples, cherries Fruit Extracts Medium 08/24/2021 Peanut Butter Flavoring Agen t (Non-Screening) 07/27/2022 [place] Pulp Medium 08/24/2021 Medications albuterol 108 (90 Base) MCG/ACT inhaler Inhale 2 puffs every 4 (four) hours if needed for wheezing. 18 g 3 4 Active Spacer/Aero-Hold ing Chambers (AeroChamber MV) inhaler Use as instructed 1 each 4 Active Additional Information Patient not taking.Reported on 12/23/2024 Kariva 0.15-0.02/0.01 MG (21/5) tablet Take 1 tablet by mouth Once per day. 4 Active EPINEPHrine (Epipen) 0.3 MG/0.3ML injection syringe Inject 0.3 mL (0.3 mg) as directed 1 (one) time if needed for anaphylaxis. Inject into upper leg. Call 911 after use. 1 each 1 4 Active SUMAtriptan (Imitrex) 50 MG tabletIndication s:Migraine without aura and without status migrainosus, not intractable Take 1 tablet (50 mg) by mouth 1 (one) time if needed for migraine. May repeat dose once in 2 hours if no relief. Do not exceed 2 doses in 24 hours. 10 tablet 5 Active Additional Information Patient not taking.Reported on 12/23/2024 benzocaine-menth ol (Chloraseptic) 6-10 MG lozengeIndicatio ns:Pharyngitis, unspecified etiology Dissolve 1 lozenge in the mouth every 2 (two) hours if needed for sore throat. 100 lozenge 5 05/13/20 26 Active acetaminophen (Tylenol Extra Strength) 500 MG tabletIndication s:Pharyngitis, unspecified etiology Take 1 tablet (500 mg) by mouth every 8 (eight) hours if needed for mild pain. 30 tablet 5 Active cetirizine (ZyrTEC) 10 MG tabletIndication s:Pharyngitis, unspecified etiology Take 1 tablet (10 mg) by mouth Once per day. 30 tablet 5 05/13/20 26 Active Active Problems Problem Noted Date Diagnosed [...] allergies 10/15/2020 Overview (01/02/2023): Advised appt with Cardiac Cath Tech to further evaluate Pt to call herself [...] ferritin w hx of anemia -referred to INTER COM SERVICER today -offered today options for hormonal tx [...] Encounters Date Type Department Care Team Description 06/18/2025 Telephone [facility] [address] [place] [address] Iris Hardy, MEAT TEAM MEMBER Follow-up 05/13/2025 3:00 PM EDT Office Visit [facility] [address] [place] [address] Rahul Moreno MD Pharyngitis, unspecified etiology 05/13/2025 Travel 04/03/2025 Telephone [facility] [address] [place] [address] Santa Bazzi MD Appointment from Last 3 Months Immunizations Immunization Administration Dates Next Due DTaP 10/12/2005, 3,2001,09/06,2001 Hep A, ped/adol, 2 dose 04/24/2018,01/24/2017 Hep B, Adolescent or Pediatric 10/17/2002,2001,2001 Hib (HbO) 2001 IPV 10/12/2005, 2,2001,06/23 Influenza injectable quadriv [...] 05/13/2025 3:13 PM EDT Plan of Treatment Health Maintenance Due [...] 24 SDOH Screening 03/29/2025 03/29/2024 COVID-19 Vaccine (3 - season) 2025 10/10/2021, 09/19/2021 Influenza Vaccine [...] Procedure Name Priority Date/Time Associated Diagnosis Comments CULTURE, THROAT Routine 05/13/2025 3:41 PM EDT Pharyngitis, unspecified etiology POCT INFLUENZA B (ID NOW RAPID MOLECULAR) [...] Recently Relevant to Health Maintenance Results * Culture, Throat (05/13/2025 3:41 PM EDT) Throat Structure of anterior region of neck / Unknown 05/13/2025 3:41 PM EDT 05/13/2025 6:18 PM EDT Comment:Throat Narrative [facility] - 05/15/2025 8:19 AM EDT Throat Culture No Group A Beta-hemolytic Streptococci isolated. Specimen Source: Throat us Rahul Goncalves MD LAB MICROBIOLOGY - NERAL ORDERABLES Final Result Performing Organization Address [facility]/ZIP Co de Phone Number [facility] [address] [place] [phone] * POCT Rapid Influenza B CRUZ ID NOW (05/13/2025 3:21 PM EDT) [facility] Influenza B Negative Negative, Indeterminate [facility] QC Media Lot # [id number] [facility] Lot# Expiration Date [facility] Swab 05/13/2025 3:21 PM EDT us Rahul Goncalves MD POINT OF CARE TEST EN TER/EDIT ORDERABLES Final Result Performing Organization Address [facility] Co de Phone Number [facility] [address] [place] [phone] * POCT Rapid Influenza A CRUZ ID NOW (05/13/2025 3:21 PM EDT) [facility] Influenza A Negative Negative, Indeterminate [facility] QC Media Lot # [id number] [facility] Lot# Expiration Date [facility] Swab 05/13/2025 3:21 PM EDT us Rahul Goncalves MD POINT OF CARE TEST EN TER/EDIT ORDERABLES Final Result Performing Organization Address City/[facility] Co de Phone Number [facility] [address] [place] [address] [phone] * POCT Rapid Strep A CRUZ ID NOW (05/13/2025 3:19 PM EDT) [facility] Rapid Strep A Screen Negative Negative, None Detected QC Media Lot # [id number] Lot# Expiration Date Swab 05/13/2025 3:19 PM EDT Rahul Goncalves MD POINT OF CARE TEST EN TER/EDIT ORDERABLES Final Result * POCT Rapid Covid-19 BinaxNOW (05/13/2025 3:17 PM EDT) [facility] Rapid COVID Ag Negative QC Media Lot # [id number] Lot# Expiration Date [id number] Swab 05/13/2025 3:17 PM EDT Rahul Goncalves MD POINT OF CARE TEST EN TER/EDIT ORDERABLES Final Result * Pap Smear (06/17/2024 3:02 PM EST) 06/17/2024 3:02 PM EST 06/18/2024 8:55 AM EST Narrative [facility] - 06/20/2024 4:35 PM EST ----- ------- Name: Анна Guerra Age/Sex: 24/F : 2000 Unit#: [id number] Attend Dr: Radha Vazquez CNM Re06/17/24 Status: DEP REF Location: HO.LNP Disch: ----- ------- SPEC : [id number] RECD: 06/18/24 STATUS: VIMAL NAVA NUM: [id number] SILVIA: 06/17/24-[address] [facility] [address]: Radha Vazquez CNM ENTERED: 06/18/24 SP TYPE: Pap Smr OTHR DR: Santa Bazzi MD ORDERED: Pap Smear, PAP path review Interpretation ABNORMAL PAP TEST. Satisfactory for evaluation, low grade squamous intraepithelial lesion cannot exclude high grade squamous intraepithelial lesion. Clinical Information LMP: 06/05/2024 Previous PAP test: No previous pap Material Received ThinPrep-Cervical Copies To: Radha Vazquez CNM [facility] [address] [facility] 3rd [place] [address] Santa Bazzi MD [address] [place] [address] ----- ------- Signed (signature on file) Angelique Mosley MD 06/20/24 1635 ----- ------- END OF REPORT Generic External Data Provider LAB CYTOLOGY DONOVAN MAYA Final Result [facility] [address] [place] [address] [phone] * Hepatitis C Antibody with Reflex to HCV, RNA, Quantitative, Real-Time PCR (02/13/2023 2:17 PM EDT) Hepatitis C Antibody NON-REACT SAM NON-REACT SAM [facility] Comment: HCV antibody was non-reactive. There is no laboratory evidence of HCV infection. In most cases, no further action is required. However, if recent HCV exposure is suspected, a test for HCV RNA (test code 75462) is suggested. For additional information please refer to http://education.Railsware/faq/PIQ40n3 (This link is being provided for informational/ educational purposes only.) Blood Venous blood specimen / Unknown 02/13/2023 2:17 PM EDT 02/13/2023 2:[address] [facility] LAB BLOOD ORDERABLES Final Result [facility] [address], [place] [address] [facility] [address] [place] [phone] from Last 3 Months or Most Recently Relevant to Health Maintenance Insurance [facility]ENT[facility] - HSN FULL (MEDICAID) Care Teams Charge Attendant Relationship Specialty Start Date End Date Santa Bazzi MD [address] [place] [phone] PCP - General Internal Medicine 03/29/24
--- OUTSIDE RECORDS SUMMARY | 2025-06-24 08:14 | XMS_ITS | Encounter Summary ---
Author Organization [employer] Address [address] 7t [place] [address] Care Team Providers Care Facilities Administrator Name Role Phone Santa Bazzi MD Primary Care Pro vider Encounter Details Date Type Department Care Team (Late st Contact Info) Description 09/03/2024 Orders Only [facility] [address] [place], [place] [phone] Elisa Riddle Social History Tobacco Use Types [...] on file documented as of this encounter Procedures Procedure Name Priority Date/Time Associated Diagnosis Comments COLPOSCOPY Routine 07/19/2024 12:00 AM EST documented in this encounter Results * Colposcopy (07/19/2024 12:00 AM EST) us Historical Provider MD IN CLINIC/BEDSIDE ORDERAB LES Edited Result - Final [facility] [address] [place] [address] [phone] documented in this encounter Visit Diagnoses Not on filedocumented in this encounter Additional Health Concerns Assessment Noted Time PHQ-9 Depression Total Score: 0 03/29/20 10:48 AM EDT documented as of this encounter Care Teams Facilities Administrator Relationship Specialty Start Date End Date Santa Bazzi MD [address] [place] [address] PCP - General Internal Medicine 03/29/24 documented as of this encounter
--- OUTSIDE RECORDS SUMMARY | 2025-06-24 08:14 | XMS_ITS | Clinical Summary ---
Author Organization [facility] Address [address] [place] [phone] Phone Care Team Providers Care Supervisor Veneer Name Role Phone Karon Reese MD Primary Care Provider [phone] Allergies No known active allergies Medications oxyCODONE [...] patient's age to complete this topic Insurance [facility] Care Teams Supervisor Veneer Relationship Specialty Start Date End Date Karon Reese MD [address] [place] [address] [place] [address] PCP - General Pediatrics 11/02/21
--- OUTSIDE RECORDS SUMMARY | 2025-06-24 08:14 | XMS_ITS | Clinical Summary ---
Author Organization [facility] Address [address] [place] [phone] Phone Care Team Providers Care Activity Assistant Name Role Phone [place] [facility] Primary Care Provider Unavailable Allergies No [...] VACCINE (#1) 2025 COVID-19 VACCINE ( - 2024-2 6 season) 2025 HEPATITIS A VACCINES Aged Out No long er eligible based on patient's age to complete this topic HIB VACCINES Aged Out No longer eligi ble based on patient's age to complete this topic IPV VACCINES Aged Out No longer eligi ble [...] topic Medical Devices Not on file Insurance [facility] Care Teams Activity Assistant Relationship Specialty Start Date End Date [place] MD PCP - General 05/29/23 Additional Source Comments The information contained in this document represents components of the legal health record. It is not the complete legal health record.[facility]
--- OUTSIDE RECORDS SUMMARY | 2025-06-24 08:14 | XMS_ITS | Data Portability ---
Author Organization [facility] Address [address] [place] [address] Assessment No assessment recorded. Plan of Treatment Reminders Order Date Submit Date Provider Last Modified By Organization Details Last Modified Time Details Appointments None recorded. Lab rapid SARS CoV 2 Ag, QL IA, respiratory specimen 2022 023 [email or web address] [facility], [address] [place] [address], [phone], 3 14:22:39 Referral emergency medicine referral 2022 023 [email or web address] Not available 12:14:54 Procedures None recorded. Surgeries None recorded. Imaging None recorded. Medication Orders None recorded. Patient TargetsNo targets recorded. Patient Instructions Encounter Date Encounter Id Patient Instructions Last Modified By Organization Details Last Modified Time 09/17/2022 [id number] headache: care instructions [email or web address] Not available 09/17/2022 14:22:13 Based on your [...] why my recommendation is the Emergency Room. [email or web address] Not available 09/17/2022 14:20:54 Reason for Referral Emergency Medicine Referral for Headache Referring Physician: Lakesha Huang, Urgent Care, Encounter Date: 09/17/2022 Results Created Date Observation Date Name Description Value Unit Range Abnormal Flag Note LastModifiedBy Organization Detail LastModifiedTime 09/17/19 23 09/17/2022 rapid SARS CoV 2 Ag, QL IA, respi rator y speci men Unknown Analyte Normal =Negat trish Not Available [address] [place] [address], [phone], 09/17/2022 14:22:27 09/17/19 23 09/17/2022 rapid SARS CoV 2 Ag, QL IA, respi rator y speci men Unknown Analyte negati ve Not Available [address] [place] [address], [phone], 09/17/2022 14:22:27 Result Notes None recorded. Problems [...] Updated DateTime 3 154.94 cm 24.6 kg/m2 06251.0 1 g 100 % 100 % 6 [...] 13:33:03 meningococcal B, recombinant 2 completed Shadia Danyel null, [place] - [facility] 09/17/2022 13:33:03 COVID-19, mRNA, LNP-S, PF, 30 mcg/0.3 mL dose, lisbet-sucrose 2 completed Shadia Danyel null, [place] - [facility] 09/17/2022 13:33:03 COVID-19, mRNA, LNP-S, PF, 30 mcg/0.3 mL dose, lisbet-sucrose 2 completed Shadia Levant null, PA - [facility] 09/17/2022 13:33:03 Hep A, ped/adol, 2 dose 7 completed Shadia Danyel null, PA - [facility] 09/17/2022 13:33:03 Hep A, ped/adol, 2 dose 8 completed Shadia Levant null, PA - [facility] 09/17/2022 13:33:03 meningococcal MCV4P 2 completed Shadia Danyel null, PA - [facility] 09/17/2022 13:33:03 Influenza, split virus, quadrivalent, PF 8 completed Shadia Danyel null, PA - [facility] 09/17/2022 13:33:03 Influenza, split virus, quadrivalent, PF 9 completed Shadia Levant null, PA - [facility] 09/17/2022 13:33:03 Past Encounters Encounter ID Performer Location Encounter Start Date Encounter Closed Date Diagnosis/Indication Diagnosis SNOMED-CT Code Diagnosis ICD10 Code Diagnosis IMO Codes Diagnosis Note [id number] [address] [place] [address] 10/01/2021 16:55:37 10/01/2021 19:11:26 [id number] [address] [place] [address] 11/15/2021 17:46:33 11/15/2021 19:10:40 [id number] [address] [place] [address] 12/30/2021 17:46:54 12/30/2021 19:06:34 [id number] [address] [place] [address] 04/20/2022 17:23:04 04/20/2022 20:00:29 [id number] [facility]EE TH[facility]ON [address] [place] [address] 09/17/2022 12:00:11 09/17/2022 14:25:35 Headache 19407618 R51.9 Worse Headache of [employer] s[employer]. Health Concerns Section Related Observation LastModified by Organization Detai ls LastModified Time None Recorded Concern Status LastModified by Organization Details LastModified Time None Recorded Advance Directives Directive None Recorded Payers Insurance Date Sequence Insurance Name Policy Number Policy Fontenot Covered Member ID Fontenot Member ID Guarantor Name 09/17/2022 1 [facility] [employer] - TOGETHER (MEDICAID HMO) [id number] Анна Em Charlie [id number] 1 Анна Guerra Notes Date Note Type [...] resolved. No fevers. BEE THOMPSON [address] [place], [place], [address], [place] - [facility] 09/17/2022 14:24:49 OBGyn Episode No OBEpisode recorded.
--- OUTSIDE RECORDS SUMMARY | 2025-06-24 08:14 | XMS_ITS | Encounter Summary ---
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 EFFECTIVE SINCE 05/26/2023 documented in this encounter Plan of Treatment Not on file documented as of this encounter Visit Diagnoses Not on filedocumented in this encounter Additional Health Concerns Assessment Noted Time PHQ-9 Depression Total Score: 0 02/14/20 1:36 PM EDT documented as of this encounter Care Teams Physics Technical Officer Relationship Specialty Start Date End Date Santa Bazzi MD [address] [place] [address] PCP - General Internal Medicine 03/29/24 documented as of this encounter
--- OUTSIDE RECORDS SUMMARY | 2025-06-24 08:14 | XMS_ITS | Clinical Summary ---
Author Organization [facility] Address [address] [place] [address] Phone Care Team Providers Care First Leveler Name Role Phone Unavailable Primary Care Provider Unavailabl e Allergies Active Allergy Reactions Criticality Noted Date Comments Avocado Medium 08/24/2021 Food 10/17/2018 apples, cherries Fruit Extracts Medium 08/24/2021 Peanut Butter Flavoring Agen t (Non-Screening) 07/27/2022 [place] Pulp Medium 08/24/2021 Medications ibuprofen 800 MG [...] allergies 10/15/2020 Overview (10/15/2020): Advised appt with Architectural Draftsperson to further evaluate Pt to call herself [...] complete this topic Procedures * Due to [place] state law, this organization might not be sharing sensitive test results. Procedure Name Priority Date/Time Associated Diagnosis Comments CHLAMYDIA AND GONORRHEA, AMPLIFIED Routine 07/27/2022 11:24 AM EST Encounter for screening examination for chlamydial infection from Last 3 Months or Most Recently Relevant to Health Maintenance Results * Due to [place] state law, this organization might not be sharing sensitive test results. * Chlamydia and Gonorrhoea, Amplified (07/27/2022 11:24 AM EST) Chlamydia Trachomatis, DNA Probe NEGATIVE (NEG) [facility] Comment: No Chlamydia Trachomatis RNA detected in this patient's sample (REFERENCE RANGE/NORMAL VALUE: NOT DETECTED) Note: This test uses skirt trimmer- mediated amplification method to detect rRNA from C. Trachomatis URINE GC AMP PROBE NEGATIVE (NEG) [facility] Comment: No Neisseria Gonorrhoeae RNA detected in this patient's sample (REFERENCE RANGE/NORMAL VALUE: NOT DETECTED) NOTE: This test uses skirt trimmer-mediated amplification method to detect rRNA from N.Gonorrhoeae. [...] without risk of sexual abuse. Consult the [facility] if needed. Contact phone number . Therapeutic failure or success cannot be determined with the Aptima Combo2 assay since nucleic acid may persist following appropriate antimicrobial therapy. The Centers for Disease Control and Prevention (CDC) recommends confirmatory retesting using culture or a different nucleic acid amplification test when positive results occur, if indicated. Testing performed or reported by [facility], a Service of [facility], [address] [place] [address] Сергей Rubio MD, Identity Management Developer [facility]# [id number] Urine (Urine) 07/27/2022 11: 24 AM EST 07/27/2022 4:10 PM EST us Karon Reese MD LAB MICROBIOLOGY - GENERAL ORDERABLES Final Result PAWAN from Last 3 Months or Most Recently Relevant to Health Maintenance [place] [address] NON PCC
--- OUTSIDE RECORDS SUMMARY | 2025-06-24 08:14 | XMS_ITS | Encounter Summary ---
Author Organization [facility] Address [address] [place] [address] Phone Care Team Providers Care Grain Mixer Name Role Phone Karon Reese MD Primary Care Provider Encounter Details Date Type Department Care Team ([facility] Contact Info) Description 03/30/2017 Conversion Encounter [facility] [address] [place] [address] Social History Tobacco Use Types Packs/Day Years [...] on filedocumented in this encounter Care Teams Grain Mixer Relationship Specialty Start Date End Date Karon Reese MD [address] [place] [address] PCP - General Pediatrics 09/04/20 01/03/23 documented as of this encounter
--- NOTE | 2025-06-24 08:22 | MHC.OFFVIS ---
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 Sexual orientation: Straight/Heterosexual Gender identity: Female Female Reproductive History Menstrual Age of Menarche: 12 Date of last menstrual period: 06/10/25 control method: none Total pregnancies: 0 Review of Systems Const All systems reviewed & are unremarkable except as noted in HPI and below Card Reports as per HPI Resp Reports as per HPI GI Reports as per HPI and Reports no additional complaints Reports as per HPI Physical Exam Vital Signs: BMI result Body Mass Index 21.4 Const General: cooperative, healthy appearing and comfortable Chest Chest palpation & inspection: normal inspection of the chest and normal palpation of entire chest wall Breast/axilla inspection: normal inspection of the breasts and normal inspection of the axillae Breast/axilla palpation: normal palpation of the breasts, normal palpation of the axillae and no axillary lymphadenopathy Resp Effort & Inspection: normal respiratory effort Auscultation: clear to auscultation bilaterally Percussion: percussion normal Cardio Palpation: normal PMI Rate: regular rate Rhythm: regular rhythm Heart sounds: no murmurs and no rubs Peripheral pulses: Peripheral pulses 2+ throughout GI Inspection: Yes normal to inspection Palpation (GI): Soft to palpation, nontender, no guarding, not rigid and No hepatosplenomegaly present Percussion: Yes normal to percussion Auscultation: normal bowel sounds Rectal Exam - Female: deferred General: Yes bladder normal to palpation External Female Exam: No lesion Speculum Exam - Vagina: normal appearance of the vagina, normal palpation, normal vaginal discharge and not erythematous Speculum Exam - Cervix: normal appearance of the cervix and normal palpation Bimanual exam- vagina & uterus: normal bimanual exam, normal palpation, uterine size normal, bladder normal to palpation, consistency normal and normal palpation Bimanual Exam- Adnexa, other: normal adnexae, no masses and no tenderness Assessment & Plan Assessment & Plan (1) Well woman exam with routine gynecological exam: Comment: LSIL can not exclude HGSIL in 07/07 with negative pathology Code(s): Z01.419 - Encounter for gynecological examination (general) (routine) without abnormal findings Category: Medical Plan: Pap smear done. Counseled the patient about the recommended dietary allowance of 1000 mg of Calcium & 600 IU of vitamin D. The patient was instructed to perform monthly self-breast exams and to schedule an annual exam in a year; All questions answered and the patient verbalized understanding. Instructed the patient to schedule annual exam in a year (2) Abnormal uterine bleeding (AUB): Comment: With hirsutism Code(s): N93.9 - Abnormal uterine and vaginal bleeding, unspecified Category: Medical Plan: Co testing done, GC and chlamydia taken CBC, TSH, HCG, 17 hydroxyprogesterone, testosterone total and free and pelvic ultrasound ordered. Discussed with the patient the different causes of abnormal bleeding including thyroid disorders, uterine and ovarian pathology,and other potential causes. Discussed with the patient the work up including CBC (to r/o anemia), TSH, 17 hydroxyprogesterone, testosterone total and free, pelvic Ultrasound. All questions answered and the patient verbalized understanding. Instructed the patient to schedule a follow-up appointment in 2 weeks. Orders: Orders TSH reflex Free T4 Today N93.9 - Abnormal uterine and vaginal bleeding, unspecified CT NG by PCR Vag/Cerv Today N93.9 - Abnormal uterine and vaginal bleeding, unspecified US pelvic and transvaginal Today N93.9 - Abnormal uterine and vaginal bleeding, unspecified Testosterone, Free/Total Today L68.0 - Hirsutism 17 Hydroxyprogesterone Today L68.0 - Hirsutism Pap Smear Today N93.9 - Abnormal uterine and vaginal bleeding, unspecified, Z01.419 - Encounter for gynecological examination (general) (routine) without abnormal findings HCG Quantitative Today N93.9 - Abnormal uterine and vaginal bleeding, unspecified Complete Blood Count no Diff Today N93.9 - Abnormal uterine and vaginal bleeding, unspecified Coding Level of Care Code Est Pt Level 3 (73695) Est Pt Prev Care 18-39y(63905) Diagnoses Well woman exam with routine gynecological exam Z01.419 Abnormal uterine bleeding (AUB) N93.9
[2025-06-24 08:25] VITALS: BMI 21.4
== END 2025-06-24 08:56 | disposition home or self-care (01) ==
LOC: HO.HWS 08:10
PROVIDERS: PCP Student in an Organized Health Care Education/Training Program; Visit Provider Obstetrics & Gynecology
DX: Z01.419 Encounter for gynecological examination (general) (routine) without abnormal findings (principal); N93.9 Abnormal uterine and vaginal bleeding, unspecified
CPT/HCPCS: 99213; 99395; 99459

== ENCOUNTER 2025-06-24 08:09 | Outpatient (REF) | payer OTHER, SELFPAY ==
[2025-06-24 09:43] LABS: Hematocrit 36.7 % (37.0-47.0); Hemoglobin 11.4 g/dl (12.0-16.0); Mean Corpuscular HGB Conc 31.1 g/dl (31.0-35.0); Mean Corpuscular Hemoglobin 26.6 pg (27.0-33.0); Mean Corpuscular Volume 85.7 fL (80.0-98.0); NRBC Abs Auto 0.000 X10*3/uL (0.0-0.012); NRBC Pct Auto 0.0 /100WBC (0.0-0.2); Platelet Count 376 X10*3/uL (160-400); Red Blood Count 4.28 X10*6/uL (4.20-5.50); White Blood Count 6.4 X10*3/uL (4.8-10.8)
[2025-06-25 03:27] LABS: CT PCR NOT DETECTED (Not Detect.); NG PCR NOT DETECTED (Not Detect.)
[2025-06-29 15:43] LABS: Testosterone, Free 3.6 pg/mL (0.1-6.4)
== END 2025-06-24 08:10 | disposition home or self-care (01) ==
LOC: HO.LAB 08:09
PROVIDERS: PCP Student in an Organized Health Care Education/Training Program; Visit Provider Obstetrics & Gynecology
DX: Z01.419 Encounter for gynecological examination (general) (routine) without abnormal findings (principal); N93.9 Abnormal uterine and vaginal bleeding, unspecified; L68.0 Hirsutism; Z20.2 Contact with and (suspected) exposure to infections with a predominantly sexual mode of transmission
CPT/HCPCS: 36415; 83498; 84402; 84403; 84443; 84702; 85027; 87491; 87591; 88175; 99212; 99395

== ENCOUNTER 2025-06-24 11:35 | Outpatient (REF) | payer OTHER, SELFPAY | END 2025-06-24 11:36 | disposition home or self-care (01) | LOC: HO.LAB 11:35 | PROVIDERS: Visit Provider Obstetrics & Gynecology | DX: Z13.89 Encounter for screening for other disorder (principal) ==

== ENCOUNTER 2025-07-30 16:20 | Outpatient (REF) | payer OTHER, SELFPAY ==
--- NOTE | ~2025-07-30 | US_ITS ---
EXAMINATION: US PELVIS CLINICAL INFORMATION: Abnormal bleeding. Unknown LMP. COMPARISON: Previous pelvic ultrasound March 2024 TECHNIQUE: Ultrasound of the pelvis is performed using transabdominal transducer along with Doppler. Patient declined transvaginal imaging. FINDINGS: Uterus: The uterus is anteverted and measures 6.4 x 4.1 x 5.3 cm. Homogeneous endometrium. The double wall endometrial thickness is 14 mm. No endometrial fluid or mass. The uterus is smooth in contour and has normal myometrial echogenicity. No visible fibroid. Adnexa: Both ovaries are visualized. There is normal color flow to the adnexa. There is no ovarian torsion. There is no pelvic ascites or fluid collection. Right ovary measures 2.7 x 2 x 1.9 cm. Normal Left ovary measures 3.1 x 1.4 x 1.8 cm. Normal US/US pelvic complete IMPRESSION: Unremarkable pelvic ultrasound. Electronically signed by: Sienna Damon MD 07/30/2025 04:57 PM [facility]
--- OUTSIDE RECORDS SUMMARY | 2025-07-30 20:56 | XMS_ITS | Clinical Summary ---
Author Organization [facility] Address [address] [place] [address] Phone Care Team Providers Care Merchant Patroller Name Role Phone Unavailable Primary Care Provider Unavailabl e Allergies Active Allergy Reactions Criticality Noted Date Comments Avocado Medium 08/24/2021 Food 10/17/2018 apples, cherries Fruit Extracts Medium 08/24/2021 Peanut Butter Flavoring Agen t (Non-Screening) 07/27/2022 Levering Pulp Medium 08/24/2021 Medications ibuprofen 800 MG [...] allergies 10/15/2020 Overview (10/15/2020): Advised appt with Scroll Saw Operator to further evaluate Pt to call herself [...] complete this topic Procedures * Due to [place] state law, this organization might not be sharing sensitive test results. Procedure Name Priority Date/Time Associated Diagnosis Comments CHLAMYDIA AND GONORRHEA, AMPLIFIED Routine 07/27/2022 11:24 AM EST Encounter for screening examination for chlamydial infection from Last 3 Months or Most Recently Relevant to Health Maintenance Results * Due to [place] state law, this organization might not be sharing sensitive test results. * Chlamydia and Gonorrhoea, Amplified (07/27/2022 11:24 AM EST) Chlamydia Trachomatis, DNA Probe NEGATIVE (NEG) [facility] Comment: No Chlamydia Trachomatis RNA detected in this patient's sample (REFERENCE RANGE/NORMAL VALUE: NOT DETECTED) Note: This test uses pipe threader- mediated amplification method to detect rRNA from C. Trachomatis URINE GC AMP PROBE NEGATIVE (NEG) [facility] Comment: No Neisseria Gonorrhoeae RNA detected in this patient's sample (REFERENCE RANGE/NORMAL VALUE: NOT DETECTED) NOTE: This test uses pipe threader-mediated amplification method to detect rRNA from N.Gonorrhoeae. [...] without risk of sexual abuse. Consult the [facility] if needed. Contact phone number . Therapeutic failure or success cannot be determined with the Aptima Combo2 assay since nucleic acid may persist following appropriate antimicrobial therapy. The Centers for Disease Control and Prevention (CDC) recommends confirmatory retesting using culture or a different nucleic acid amplification test when positive results occur, if indicated. Testing performed or reported by [facility], a Service of [facility], [address] [place] [address] Сергей Rubio MD, Industrial Ecologist [facility]# [id number] Urine (Urine) 07/27/2022 11: 24 AM EST 07/27/2022 4:10 PM EST us Karon Reese MD LAB MICROBIOLOGY - GENERAL ORDERABLES Final Result PAWAN from Last 3 Months or Most Recently Relevant to Health Maintenance [place] [address] [place] [id number] NON PCC
--- OUTSIDE RECORDS SUMMARY | 2025-07-30 20:56 | XMS_ITS | Clinical Summary ---
Author Organization [facility] Address [address] [place] [id number] Phone Care Team Providers Care Stores Assistant Name Role Phone Karon Reese MD Primary Care Provider [phone] Allergies No known active allergies Medications oxyCODONE [...] patient's age to complete this topic Insurance [facility] PLAN Care Teams Stores Assistant Relationship Specialty Start Date End Date Karon Reese MD [address] [place] [address] [place] [id number] PCP - General Pediatrics 11/02/21
--- OUTSIDE RECORDS SUMMARY | 2025-07-30 20:56 | XMS_ITS | Encounter Summary ---
Author Organization [facility] Address [address] [place] [address] Phone Care Team Providers Care Receptionist Telephone Operator Name Role Phone Karon Reese MD Primary Care Provider Encounter Details Date Type Department Care Team ([facility] Contact Info) Description 03/30/2017 Conversion Encounter [facility] [address] [place] [address] Social History Tobacco Use Types Packs/Day Years [...] on filedocumented in this encounter Care Teams Receptionist Telephone Operator Relationship Specialty Start Date End Date Karon Reese MD [address] [place] [address] PCP - General Pediatrics 09/04/20 01/03/23 documented as of this encounter
--- OUTSIDE RECORDS SUMMARY | 2025-07-30 20:56 | XMS_ITS | Clinical Summary ---
Author Organization [facility] Address [address] [facility] [address] [place] [address] Phone Care Team Providers Care Blister Packaging Machine Operator Name Role Phone [facility] Primary [facility] Provider Unavailable Allergies No known [...] topic Medical Devices Not on file Insurance [facility] C3 ACO [facility] C3 ACO [facility] C3 ACO Care Teams Blister Packaging Machine Operator Relationship Specialty Start Date End Date Itz sIsa MD PCP - General 05/29/23 Additional Source Comments The information contained in this document represents components of the legal health record. It is not the complete legal health record.[facility]
--- OUTSIDE RECORDS SUMMARY | 2025-07-30 20:56 | XMS_ITS | Data Portability ---
Author Organization [facility] [address] Address [address] [place] [address] Assessment No assessment recorded. Plan of Treatment Reminders Order Date Submit Date Provider Last Modified By Organization Details Last Modified Time Details Appointments None recorded. Lab rapid SARS CoV 2 Ag, QL IA, respiratory specimen 2022 023 [email or web address] [id number], [address] [place] [address], [id number], 3 14:22:39 Referral emergency medicine referral 2022 023 [email or web address] Not available 12:14:54 Procedures None recorded. Surgeries None recorded. Imaging None recorded. Medication Orders None recorded. Patient TargetsNo targets recorded. Patient Instructions Encounter Date Encounter Id Patient Instructions Last Modified By Organization Details Last Modified Time 09/17/2022 [id number] headache: care instructions [email or web address] Not available 09/17/2022 14:22:13 Based on your [...] why my recommendation is the Emergency Room. [email or web address] Not available 09/17/2022 14:20:54 Reason for Referral Emergency Medicine Referral for Headache Referring Physician: Lakesha Huang, Urgent Care, Encounter Date: 09/17/2022 Results Created Date Observation Date Name Description Value Unit Range Abnormal Flag Note LastModifiedBy Organization Detail LastModifiedTime 09/17/1909/17/2022 rapid SARS CoV 2 Ag, QL IA, respi rator y speci men Unknown Analyte Normal =Negat trish Not Available [address] [place] [address], [id number], 09/17/2022 14:22:27 09/17/19 23 09/17/2022 rapid SARS CoV 2 Ag, QL IA, respi rator y speci men Unknown Analyte negati ve Not Available [address] [place] [address], [phone], 09/17/2022 14:22:27 Result Notes None recorded. Problems [...] mass index (BMI) Body weight Oxygen saturation Pain severity - 0-10 verbal numeric rating [Score] - Reported Heart rate Respiratory rate Body temperature Systolic And Diastolic Provider Name and Address Organization Details Last Updated DateTime 3 154.94 cm 24.6 kg/m2 51795.0 1 g 100 % 6 61 /min 20 /min 97.8 [degF] 119/85 mm[Hg] Shadia Montaño PA - [facility] 3 13:37:40 Social History Question Answer Notes LastModified by Organizat ion Details LastModified Time Tobacco Smoking Status Never Smoker Shadia Danyel null, PA - [facility] 09/17/2022 13:34:12 [...] split virus, quadrivalent, preservative 5 completed Shadia Cairo null, PA - [facility] 09/17/2022 13:33:03 meningococcal B, recombinant 2 completed Shadia Cairo null, PA - [facility] 09/17/2022 13:33:03 COVID-19, mRNA, LNP-S, PF, 30 mcg/0.3 mL dose, lisbet-sucrose 2 completed Shadia Cairo null, PA - [facility] 09/17/2022 13:33:03 COVID-19, mRNA, LNP-S, PF, 30 mcg/0.3 mL dose, lisbet-sucrose 2 completed Shadia Danyel null, PA - [facility] 09/17/2022 13:33:03 Hep A, ped/adol, 2 dose 7 completed Shadia Cairo null, PA - [facility] 09/17/2022 13:33:03 Hep A, ped/adol, 2 dose 8 completed Shadia Danyel null, PA - [facility] 09/17/2022 13:33:03 meningococcal MCV4P 2 completed Shadia Danyel null, PA - [facility] 09/17/2022 13:33:03 Influenza, split virus, quadrivalent, PF 8 completed Shadia Cairo null, PA - [facility] 09/17/2022 13:33:03 Influenza, split virus, quadrivalent, PF 9 completed Shadia Danyel null, PA - [facility] 09/17/2022 13:33:03 Past Encounters Encounter ID Performer Location Encounter Start Date Encounter Closed Date Diagnosis/Indication Diagnosis SNOMED-CT Code Diagnosis ICD10 Code Diagnosis IMO Codes Diagnosis Note [id number] [address] [place] [address] 10/01/2021 16:55:37 10/01/2021 19:11:26 [id number] [address] [place] [address] 11/15/2021 17:46:33 11/15/2021 19:10:40 [id number] [address] [place] [address] 12/30/2021 17:46:54 12/30/2021 19:06:34 [id number] [address] [place] [address] 04/20/2022 17:23:04 04/20/2022 20:00:29 [id number] BEE THOMPSON [address] [place] [address] 09/17/2022 12:00:11 09/17/2022 14:25:35 Headache 59196258 R51.9 Worse Headache of [employer] [facility]. Health Concerns Section Related Observation LastModified by Organization Detai ls LastModified Time None Recorded Concern Status LastModified by Organization Details LastModified Time None Recorded Advance Directives Directive None Recorded Payers Insurance Date Sequence Insurance Name Policy Number Policy Fontenot Covered Member ID Fontenot Member ID Guarantor Name 09/17/2022 1 [facility] [employer] - TOGETHER (MEDICAID HMO) [id number] Анна Guerra [id number] 1 Аннаmejia Guerra Notes Date Note Type Note Provider [...] has resolved. No fevers. BEE THOMPSON [address], [place], [address], [place] - [facility] 09/17/2022 14:24:49 OBGyn Episode No OBEpisode recorded.
== END 2025-07-30 16:21 | disposition home or self-care (01) ==
LOC: HO.US 16:20
PROVIDERS: PCP Student in an Organized Health Care Education/Training Program; Visit Provider Obstetrics & Gynecology
DX: N93.9 Abnormal uterine and vaginal bleeding, unspecified (principal)
CPT/HCPCS: 76856